=== PATIENT | male | born 1975 | race Caucasian/White ===

== ENCOUNTER 2020-06-10 08:13 | Outpatient (CLI) | payer BC, OTHER, SELFPAY ==
[2020-06-10 08:39] LABS: Basophils Absolute Auto 0.1 K/mm3 (0.0-0.1); Basophils Percent Auto 0.8 % (0.2-1.2); Eosinophils Absolute Auto 0.2 K/mm3 (0-0.3); Hematocrit 44.5 % (42.0-52.0); Hemoglobin 15.4 g/dL (14.0-18.0); Immature Granulocyte Absolute 0.04 K/mm3 (0.00-0.031); Immature Granulocyte Percent A 0.5 % (0-0.5); Lymphocytes Absolute Auto 3.09 K/mm3 (0.9-3.2); Lymphocytes Percent Auto 39.3 % (18.3-44.2); Mean Corpuscular HGB Conc 34.6 g/dl (32-36); Mean Corpuscular Hemoglobin 29.5 pg (26-34); Mean Corpuscular Volume 85.2 fl (80-100); Mean Platelet Volume 8.7 fl (7.4-10.4); Monocytes Absolute Auto 0.4 K/mm3 (0.1-0.6); Monocytes Percent Auto 5.3 % (2.6-8.5); Neutrophils Absolute Auto 4.1 K/mm3 (1.3-6.7); Neutrophils Percent Auto 52.1 % (45.5-73.1); Platelet Count Result 341 k/mm3 (150-375); Red Blood Count 5.22 M/mm3 (4.6-6.20); White Blood Count 7.9 K/mm3 (4.5-10.0)
[2020-06-10 09:09] LABS: Alanine Aminotransferase 41 U/L (4-50); Albumin Level 4.8 g/dL (3.5-5.1); Alkaline Phosphatase 72 U/L (38-126); Anion Gap 7 mmol/L (8-16); Aspartate Amino Transferase 31 U/L (17-59); Bilirubin,Total 0.4 mg/dL (0.2-1.3); Blood Urea Nitrogen 9 mg/dL (9-20); Calcium 9.6 mg/dL (8.4-10.2); Carbon Dioxide 29 mmol/L (22-30); Chloride 104 mmol/L (98-107); Cholesterol 242 mg/dL (0-200); Estimated Glomerular Filt Rate > 60; Glucose 101 mg/dL (75-110); HDL Direct 31 mg/dL; Potassium 4.5 mmol/L (3.4-5.0); Sodium 140 mmol/L (137-145); Triglycerides 296 mg/dL (<150)
[2020-06-10 09:21] LABS: LDL Cholesterol Direct 145 mg/dL
== END 2020-06-10 08:14 | disposition home or self-care (01) ==
LOC: ANHLAB 08:16
PROVIDERS: PCP Internal Medicine; Visit Provider Nurse Practitioner
DX: Z13.29 Encounter for screening for other suspected endocrine disorder (principal); Z13.220 Encounter for screening for lipoid disorders; Z84.2 Family history of other diseases of the genitourinary system; M25.50 Pain in unspecified joint
CPT/HCPCS: 36415; 80053; 80061; 84153; 84443; 85025

== ENCOUNTER → 2020-06-29 01:39 | Outpatient (CLI) | payer BC, OTHER, SELFPAY ==
[2020-06-29 18:55] LABS: SARS-CoV-2 RNA PCR Negative
== END ==
PROVIDERS: PCP Internal Medicine; Visit Provider Internal Medicine Gastroenterology
DX: Z01.812 Encounter for preprocedural laboratory examination (principal); Z20.822 Contact with and (suspected) exposure to COVID-19
CPT/HCPCS: C9803; U0003; U0005

== ENCOUNTER 2020-07-02 05:22 | Day surgery (SDC) | payer BC, OTHER, SELFPAY ==
[2020-06-22 14:55] VITALS: BMI 33.5
[2020-07-02] MEDS: LACTATED RINGERS 1,000 ML 150 ML IV CONT (06:32)
[2020-07-02 06:34] VITALS: BP 110/70; PULSE 72; RESP 20; TEMP 36.7; O2SAT 98; BMI 34.0
--- NOTE | 2020-07-02 07:14 | WPDANESEPPF ---
Anes - Initial Pre Proc Eval Procedure: Operation Date: 07/02/20 07:30 Proposed Procedures p Colonoscopy - Blake Saucedo MD Date/Time: 07/02/20 07:14 Surgeon: Blake Saucedo MD Pre Op Diagnosis: melena Patient Data Age: 44 Gender: M Height: 5 ft 8 in Weight: 101.4 kg Last Vital Signs Temp 98.1 F 07/02/20 06:34 Pulse 72 07/02/20 06:34 Resp 20 07/02/20 06:34 BP 110/70 07/02/20 06:34 Pulse Ox 98 07/02/20 06:34 Allergies Allergy/AdvReac Type Severity Reaction Status Date / Time No Known Allergies Allergy Verified 07/02/20 06:33 Home Medications Medication Instructions Recorded Confirmed Type buspirone 15 mg tablet 15 mg PO TID 06/07/20 06/22/20 History clonazepam 0.5 mg tablet 0.5 mg PO TID tablet 06/07/20 06/22/20 History clonidine HCl 0.1 mg tablet 0.1 mg PO BID tablet 06/07/20 06/22/20 History lisdexamfetamine 30 mg capsule 30 mg PO DAILY 06/07/20 06/22/20 History Patient hx anesthesia problems: none Family hx anesthesia problems: none PMFSH Past Medical History Medical History (Updated 06/07/20 @ 12:56 by Lila Flynn NP) Allergies Anxiety Arthritis Bulging disc Degenerative disc disease Family history of prostate problems Genital warts due to HPV (human papillomavirus) Headache HPV in male IBS (irritable bowel syndrome) Migraine METZ (nonalcoholic steatohepatitis) Ulcer Surgical History Surgical History (Updated 06/07/20 @ 10:18 by Kaylie Taveras CMA) H/O foot surgery History of nasal surgery Family History Family History (Updated 06/07/20 @ 09:52 by Kaylie Taveras CMA) Father Alcoholism Hypertension Depression Heart disease Malignant neoplasm of prostate Mother HPV (human papilloma virus) infection Depression Thyroid disease Sibling Heart disease Daughter Depression Grandparent Alcoholism Cancer Depression Malignant neoplasm of prostate Social History Social History (Updated 06/07/20 @ 09:46 by Kaylie Taveras CMA) Smoking packs per day: 2 Smoking cigarettes per day: 40.0 Years smoked: 13 Smoking pack-years: 26.00 Smoking status: Former smoker Tobacco type: cigarettes Alcohol intake: current Alcohol use details: OCCASIONALLY Living arrangements: with family Spiritual care concerns: No Anes - Eval Final PreProcedure Day of Procedure 07/02/20 07:14 Patient weight: obese Heart: regular rate and rhythm Lungs: clear to auscultation Airway: Mallampati scale class II Neurological: alert and oriented Last oral intake: >/= 8 hours ASA classification: II Emergent: no Anesthetic plan: proceed Anesthesia type and monitoring: general GIVS and standard monitoring Informed Consent: The patient's anesthetic plan and its attendant risks and benefits were discussed with the patient/family/POA. Questions were solicited and answers provided to the satisfaction of the patient/family/POA.
--- NOTE | 2020-07-02 07:25 | WPDGICN ---
Assessment and Plan Assessment and plan (1) Hematochezia: Code(s): K92.1 - Melena Status: Acute Assessment and Plan: Patient had 2 episodes of bright red blood per rectum. Melena and dark stools is denied. Plan is for colonoscopy to evaluate for source rectal bleeding. Further recommendations will be given after endoscopy (2) ADD (attention deficit disorder): Qualifiers: Hyperactivity presence: present Attention deficit-hyperactivity disorder type: predominantly hyperactive Qualified Code(s): F90.1 - Attention-deficit hyperactivity disorder, predominantly hyperactive type Code(s): F98.8 - Other specified behavioral and emotional disorders with onset usually occurring in childhood and adolescence Status: Acute GI Consult Note Consult date/time: 07/02/20 07:25 HPI: Chivo Cosby II is a 44 year old male seen in evaluation at request of Dr Collins. Patient presents for evaluation of bright red blood per rectum. patient states that he has underlying history of ADD. Recently found to have jejunal arts attributed HPV. He gives a history of 2 episodes of bright red blood per rectum with wiping. He denies any abdominal pain. He has had no pain is bowel habits remain normal. Family history is significant his grandfather had colon cancer. First-degree relatives otherwise have had no history given. Recent CBC was found to be within normal limits. Colonoscopy is reoccur commended to evaluate source of rectal bleeding further recommendations weight be given after endoscopy. Review of Systems Review of Systems: All systems reviewed & are unremarkable except as noted in HPI and below PMFSH Past Medical History Medical History (Updated 06/07/20 @ 12:56 by Llia Flynn NP) Allergies Anxiety Arthritis Bulging disc Degenerative disc disease Family history of prostate problems Genital warts due to HPV (human papillomavirus) Headache HPV in male IBS (irritable bowel syndrome) Migraine METZ (nonalcoholic steatohepatitis) Ulcer Surgical History Surgical History (Updated 06/07/20 @ 10:18 by Kaylie Taveras CMA) H/O foot surgery History of nasal surgery Family History Family History (Updated 06/07/20 @ 09:52 by Kaylie Taveras CMA) Father Alcoholism Hypertension Depression Heart disease Malignant neoplasm of prostate Mother HPV (human papilloma virus) infection Depression Thyroid disease Sibling Heart disease Daughter Depression Grandparent Alcoholism Cancer Depression Malignant neoplasm of prostate Social History Social History (Updated 06/07/20 @ 09:46 by Kaylie Taveras CMA) Smoking packs per day: 2 Smoking cigarettes per day: 40.0 Years smoked: 13 Smoking pack-years: 26.00 Smoking status: Former smoker Tobacco type: cigarettes Alcohol intake: current Alcohol use details: OCCASIONALLY Living arrangements: with family Spiritual care concerns: No Meds Home Medications and Allergies Home Medications Medication Instructions Recorded Confirmed Type buspirone 15 mg tablet 15 mg PO TID 06/07/20 06/22/20 History clonazepam 0.5 mg tablet 0.5 mg PO TID tablet 06/07/20 06/22/20 History clonidine HCl 0.1 mg tablet 0.1 mg PO BID tablet 06/07/20 06/22/20 History lisdexamfetamine 30 mg capsule 30 mg PO DAILY 06/07/20 06/22/20 History Allergies Allergy/AdvReac Type Severity Reaction Status Date / Time No Known Allergies Allergy Verified 07/02/20 06:33 Vital Signs Vital Signs - 24 hr 07/02/20 06:34 Temperature 98.1 F Pulse Rate 72 Respiratory Rate 20 Blood Pressure 110/70 Pulse Oximetry 98 Exam Narrative: Exam Narrative: Physical exam reveals patient be alert. Vital signs stable. HEENT exam unremarkable. Lungs are clear to auscultation and percussion. Heart is without murmur or extra sounds. Abdominal exam bowel sounds are present soft nontender with no organomegaly. Digital external
[2020-07-02 07:51] VITALS: BP 117/70; PULSE 70; RESP 19; O2SAT 94
[2020-07-02 08:01] VITALS: BP 119/72; PULSE 66; RESP 21; O2SAT 95
[2020-07-02 08:11] VITALS: BP 116/76; PULSE 61; RESP 22; O2SAT 100
== END 2020-07-02 08:18 | disposition home or self-care (01) ==
PROVIDERS: PCP Internal Medicine; Visit Provider Internal Medicine Gastroenterology
PROC: 0DJD8ZZ Inspection of Lower Intestinal Tract, Via Natural or Artificial Opening Endoscopic (ICD-10-PCS; CPT 45378; principal; 2020-07-02 07:30)
DX: K92.1 Melena (principal); K64.8 Other hemorrhoids; F90.1 Attention-deficit hyperactivity disorder, predominantly hyperactive type; K58.9 Irritable bowel syndrome, unspecified; F41.9 Anxiety disorder, unspecified; K75.81 Nonalcoholic steatohepatitis (NASH); Z87.891 Personal history of nicotine dependence; E66.9 Obesity, unspecified; Z68.34 Body mass index [BMI] 34.0-34.9, adult
CPT/HCPCS: 45378; C9803; J2704; J7120; U0003; U0005

== ENCOUNTER 2021-02-03 10:28 | Outpatient (CLI) | payer BC, MEDICAID, SELFPAY ==
--- NOTE | ~2021-02-03 | XR_ITS ---
EXAMINATION: XR shoulder RT min 2V DATE: 02/03/2021 10:48 INDICATION: Right shoulder pain. Fall one week ago. TECHNIQUE: 4 views of right shoulder were obtained. COMPARISON: None. FINDINGS: Bone alignment is normal. No fracture. Glenohumeral joint is normal. There is mild acromioc lavicular joint osteoarthritis. IMPRESSION: 1. Mild acromioclavicular joint osteoarthritis. Reviewed, dictated and finalized at location A. [employer]
[2021-02-03 11:04] LABS: Basophils Percent Auto 0.7 % (0.2-1.2); Eosinophils Absolute Auto 0.1 K/mm3 (0-0.3); Eosinophils Percent Auto 1.3 % (0-4.4); Hematocrit 45.4 % (42.0-52.0); Hemoglobin 15.5 g/dL (14.0-18.0); Immature Granulocyte Absolute 0.01 K/mm3 (0.00-0.031); Immature Granulocyte Percent A 0.2 % (0-0.5); Lymphocytes Absolute Auto 2.42 K/mm3 (0.9-3.2); Lymphocytes Percent Auto 39.9 % (18.3-44.2); Mean Corpuscular HGB Conc 34.1 g/dl (32-36); Mean Corpuscular Hemoglobin 30.3 pg (26-34); Mean Corpuscular Volume 88.7 fl (80-100); Mean Platelet Volume 9.6 fl (7.4-10.4); Monocytes Absolute Auto 0.4 K/mm3 (0.1-0.6); Monocytes Percent Auto 5.8 % (2.6-8.5); Neutrophils Absolute Auto 3.2 K/mm3 (1.3-6.7); Neutrophils Percent Auto 52.1 % (45.5-73.1); Platelet Count Result 289 k/mm3 (150-375); Red Blood Count 5.12 M/mm3 (4.6-6.20); Red Cell Distribution Width 12.4 % (11.5-14.5); White Blood Count 6.1 K/mm3 (4.5-10.0)
[2021-02-03 11:15] LABS: Rheumatoid Factor < 8.6 IU/ML (<12)
[2021-02-03 11:17] LABS: Alanine Aminotransferase 32 U/L (4-50); Albumin Level 4.7 g/dL (3.5-5.1); Alkaline Phosphatase 65 U/L (38-126); Anion Gap 8 mmol/L (8-16); Aspartate Amino Transferase 26 U/L (17-59); Bilirubin,Total 0.4 mg/dL (0.2-1.3); Blood Urea Nitrogen 16 mg/dL (9-20); CRP < 0.5 mg/dL (<1.0); Calcium 9.4 mg/dL (8.4-10.2); Carbon Dioxide 24 mmol/L (22-30); Chloride 107 mmol/L (98-107); Estimated Glomerular Filt Rate > 60; Glucose 122 mg/dL (65-110); Potassium 4.1 mmol/L (3.4-5.0); Sodium 139 mmol/L (137-145)
[2021-02-03 11:45] LABS: Erythrocyte Sedimentation Rate 3 mm/hr (0-20)
[2021-02-08 11:34] LABS: Anti Cyclic Citrullinated Pept <16 Units (<20)
== END 2021-02-03 10:29 | disposition home or self-care (01) ==
LOC: ANHLAB 10:32
PROVIDERS: PCP Internal Medicine; Visit Provider Family Medicine
DX: M25.511 Pain in right shoulder (principal); M19.011 Primary osteoarthritis, right shoulder
CPT/HCPCS: 36415; 73030; 80053; 84550; 85025; 85652; 86140; 86200; 86430

== ENCOUNTER 2021-04-07 08:11 | Outpatient (CLI) | payer BC, MEDICAID, SELFPAY ==
--- NOTE | ~2021-04-07 | US_ITS ---
EXAMINATION: US art doppler w press LE BI DATE: 04/07/2021 08:53 INDICATION: Other specified symptoms and signs involving the circulatory system. Lower limb pain. Hyp ercholesterolemia. TECHNIQUE: Segmental pressures and plethysmographic and Doppler waveforms of the brachial and lower e xtremity arteries were obtained. COMPARISON: None. FINDINGS: Right and left brachial artery pressures of 118 mm Hg and 125 mm Hg, respectively, are concordant (no rmal difference <= 30 mmHg). The right and left high-thigh pressure indices are 1.43 and 1.38, respec tively (normal > 1.2). The right ankle-brachial index (SKY) is 1.02 (normal >= 0.9-1). The right great toe-brachial index (T BI) is 0.77 (normal >= 0.6-0.8). The right lower extremity segmental pressure gradients are increased between the right above and wlfct-dqi-vzci popliteal arteries as well as between the arteries at the vzhxe-cyb-owjy popliteal artery and the right dorsalis pedis artery (normal gradients <= 20-30 mmHg between adjacent levels on the same leg or the same levels on the two legs). Arterial waveforms are b iphasic at the right dorsalis pedis artery and triphasic at the remaining arteries in the right lower limb with brisk systolic upstrokes throughout. The left SKY is 1.05. The left TBI is 0.93. The left lower extremity segmental pressure gradients are normal. Arterial waveforms are biphasic at the left dorsalis pedis artery and triphasic at the remai mahesh arteries in the left lower limb with brisk systolic upstrokes throughout. IMPRESSION: 1. Normal SKY's and TBI's bilaterally. No significant occlusive disease. Reviewed, dictated and finalized at location A. [employer]
== END 2021-04-07 08:12 | disposition home or self-care (01) ==
LOC: ANHIMG 08:14
PROVIDERS: PCP Internal Medicine; Visit Provider Family Medicine
DX: R09.89 Other specified symptoms and signs involving the circulatory and respiratory systems (principal); R25.2 Cramp and spasm
CPT/HCPCS: 93923

== ENCOUNTER → 2021-04-12 08:40 | Outpatient (CLI) | payer BC, MEDICAID, SELFPAY ==
--- NOTE | ~2021-04-12 | MR_ITS ---
EXAMINATION: MR shoulder RT wo con DATE: 04/12/2021 09:19 INDICATION: Right shoulder pain TECHNIQUE: Magnetic resonance imaging (MRI) of the right shoulder was performed without intravenous c ontrast. Sequences included axial PD-weighted FS FSE, coronal oblique PD-weighted FS FSE, coronal obl ique T2-weighted FS FSE, sagittal PD-weighted FS FSE, and sagittal T1-weighted SE. COMPARISON: None. FINDINGS: Coracoacromial arch: The acromion undersurface is flat in morphology (type I). The coracoacromial ligament is normal. Mild acromioclavicular osteoarthritis. Rotator cuff: Mild infraspinatus tendinopathy with tiny tear measuring 3 mm AP and involving a minimal portion of t he thickness of the tendon at the middle facet footplate. The supraspinatus, infraspinatus and subsca pularis tendons are normal. Normal rotator cuff muscle bulk and signal. Biceps tendon, glenoid labrum and glenohumeral cartilage: Long head of the biceps tendon is normal. Glenoid labrum is normal. Glenohumeral cartilage is normal. Fluid: Physiologic amount of fluid in the glenohumeral joint and biceps tendon sheath. No loose osteochondr al bodies. Mild increased fluid signal in the subacromial/subdeltoid bursa consistent with minimal bu rsitis. Bones: Normal marrow signal with no edema, fracture or abnormal marrow replacing process. Mild cystic change at the greater tuberosity in the immediate vicinity of the tiny labral tear. IMPRESSION: 1. Mild infraspinatus tendinopathy with tiny tear at its insertion. 2. Minimal subacromial/subdeltoid bursitis. 3. Mild acromioclavicular osteoarthritis. Reviewed, dictated and finalized at location A. 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
== END ==
PROVIDERS: PCP Family Medicine; Visit Provider Family Medicine
DX: M75.51 Bursitis of right shoulder (principal); M19.011 Primary osteoarthritis, right shoulder
CPT/HCPCS: 73221

== ENCOUNTER 2021-04-26 07:29 | Outpatient (CLI) | payer BC, MEDICAID, SELFPAY ==
--- NOTE | 2021-05-03 10:53 | WPDHOMESLEEP ---
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 The patient has difficulty falling asleep and staying asleep. The patient rarely awakens from sleep short of breath. He denies awakening at night with heartburn, belching or cough. He occasionally snores but it is rarely loud enough that others complain. He constantly has trouble sleeping when he has a cold. He denies waking up gasping for air throughout the night. He denies having breathing problems at night observed by others. He denies sweating excessively at night. He denies having heart palpitations or irregular heartbeats during the night. He rarely falls asleep during the day. The patient occasionally has trouble at work due to sleepiness. The patient denies sleep paralysis and cataplexy. He frequently experiences vivid dreamlike scenes upon awakening or falling asleep. He occasionally has nightmares. He frequently remembers his dreams. He occasionally has thoughts racing through his mind. He rarely feels sad or depressed. He occasionally has anxiety. He frequently notices parts of his body jerk. He denies kicking during the night. He rarely experiences crawling and aching feelings in his legs. He rarely experiences leg pain during the night. He occasionally grinds his teeth during sleep and occasionally awakens with morning jaw pain. He is frequently bothered by pain during the day and constantly awakened by pain during the night. He occasionally wakes up feeling stiff morning. He frequently wakes up with sore achy muscles. He frequently wakes up with pain in the neck, spine and other joints. He goes to bed between 8 and 10:00 p.m. on both weekdays and weekends. He can fall asleep within 45 minutes when he takes his medication. He wakes up 4-5 times throughout the night. When he awakens, he will use the restroom but then have difficulty falling back asleep. He wakes up at 2:00 a.m. on both weekdays and weekends. He typically gets 4 hours of sleep per. He does not stay in the bed after waking up in the morning. He currently lives with his . He denies consuming any caffeinated beverages within 2 hours of bedtime. He does not engage in physical exercise before bedtime. He denies reading and watching television before falling asleep. He denies taking naps in the afternoon or the evening. He does not consume any caffeinated beverages throughout the day. He quit smoking cigarettes 15 years ago. He denies alcohol recreational drug use. [facility] Past Medical History Medical History Allergies Anxiety Arthritis Bulging disc Degenerative disc disease Family history of prostate problems Genital warts due to HPV (human papillomavirus) Headache HPV in male IBS (irritable bowel syndrome) Migraine METZ (nonalcoholic steatohepatitis) Ulcer Surgical History Surgical History H/O foot surgery History of nasal surgery Family History Family History Father Alcoholism Hypertension Depression Heart disease Malignant neoplasm of prostate Mother HPV (human papilloma virus) infection Depression Thyroid disease Sibling Heart disease Daughter Depression Grandparent Alcoholism Cancer Depression Malignant neoplasm of prostate Social History Social History (Reviewed 05/03/21
[2021-05-03 15:23] VITALS: BMI 35.1
--- NOTE | 2021-12-08 15:58 | SLEEP ---
pt received machine in august will re evaluate in
--- NOTE | 2023-02-22 12:39 | SLEEP ---
pt not using pap
== END 2021-05-02 13:17 | disposition home or self-care (01) ==
LOC: ANHCSM 07:31
PROVIDERS: PCP Family Medicine; Visit Provider Family Medicine
DX: G47.10 Hypersomnia, unspecified (principal); G47.33 Obstructive sleep apnea (adult) (pediatric)
CPT/HCPCS: 95806

== ENCOUNTER 2021-04-27 17:00 | Emergency (ER) | payer BC, MEDICAID, SELFPAY ==
[2021-04-27] VITALS (8 sets, daily range): BP systolic 122–151; BP diastolic 84–111; PULSE 85–123; RESP 16–20; TEMP 36.9–37.2; O2SAT 98–100
--- NOTE | ~2021-04-27 | XR_ITS ---
EXAMINATION: XR chest 2V DATE: 04/27/2021 18:06 INDICATION: Shortness of breath. TECHNIQUE: PA and lateral views of the chest were obtained. COMPARISON: Chest radiograph dated 08/24/2013 FINDINGS: The lungs remain clear with no focal airspace opacities, pulmonary edema, pleural effusion or pneumot horax. The cardiomediastinal silhouette is normal. 20 degrees midthoracic dextroscoliosis with mild s pondylosis. IMPRESSION: 1. No acute cardiopulmonary disease. Reviewed, dictated and finalized at location A. 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
--- NOTE | 2021-04-27 17:48 | ECG_ITS ---
Measurements Intervals [place] Rate: 118 P: 62 [place]: 166 QRS: 73 QRSD: 93 T: -39 QT: 400 QTc: 561 Interpretive Statements SINUS TACHYCARDIA BASELINE ARTIFACT BORDERLINE ECG NO PREVIOUS ECG AVAILABLE FOR COMPARISON Electronically Signed On 04-28-2021 13:45:32 LABOR ECON[employer]ICS TEACHER by Pedro Rangel M.D.
--- NOTE | 2021-04-27 18:01 | ED.SOB ---
HPI - SOB/Dyspnea General Chief Complaint: Shortness of Breath/Dyspnea Stated Complaint: dyspnea, burning face, FLORES Time Seen by Provider: 04/27/21 17:48 Source: patient Mode of arrival: ambulatory Limitations: no limitations History of Present Illness HPI Narrative: Patient is a 45-year-old male complaining of shortness of breath accompanied by chest discomfort, midsternal, nonradiating, 10, on and off for the past week. Patient states that he was sent here by his PCP due to the elevated blood pressure and heart rate, denies any history of hypertension, on clonidine for his anxiety. Patient patient denies any abdominal pain, nausea, vomiting, diaphoresis, fever or chills. Patient also requesting to check his gout, uric acid level. Related Data Home Medications Medication Instructions Recorded Confirmed buspirone 15 mg tablet 15 mg PO TID 06/07/20 04/27/21 clonidine HCl 0.1 mg tablet 0.1 mg PO BID tablet 06/07/20 04/27/21 lisdexamfetamine 30 mg capsule 30 mg PO DAILY 06/07/20 04/27/21 clonazepam 0.5 mg tablet 0.5 mg PO BID tablet 04/27/21 04/27/21 Allergies Allergy/AdvReac Type Severity Reaction Status Date / Time No Known Allergies Allergy Verified 04/27/21 18:33 Review of Systems Review of Systems: All systems reviewed & are unremarkable except as noted in HPI and below Constitutional: Constitutional: Denies body ache(s), Denies chills, Denies excessive sweating, Denies fatigue, Denies fever(s), Denies headache(s), Denies lethargy, Denies malaise, Denies weakness and Denies weight loss Eyes: Eyes: Denies blurry vision, Denies change in vision and Denies loss of vision ENT: Denies dizziness, Denies ear discharge, Denies headache(s), Denies lip swelling, Denies epistaxis, Denies nasal congestion, Denies neck pain, Denies throat swelling and Denies tongue swelling Cardiovascular: Cardiovascular: Denies diaphoresis, Denies edema, Denies irregular heart rhythm, Denies lightheadedness and Denies palpitations Respiratory: Respiratory: Denies chest congestion, Denies cough and Denies hemoptysis Gastrointestinal: Gastrointestinal: Denies abdominal pain, Denies melena, Denies hematochezia, Denies diarrhea, Denies nausea, Denies vomiting and Denies hematemesis Musculoskeletal: Musculoskeletal: Denies abnormal gait, Denies deformity, Denies joint swelling, Denies limited range of motion, Denies neck pain and Denies numbness Neurologic: Denies Abnormal speech present, Denies abnormal gait, Denies confusion, Denies dizziness, Denies headache(s), Denies focal weakness, Denies loss of vision, Denies numbness, Denies Other visual disturbances, Denies Sensory deficit (Neuro) and Denies weakness Psychiatric: Psychiatric: Denies confusion, Denies depression, Denies auditory hallucinations, Denies homicidal ideation and Denies suicidal ideation Endocrine: Endocrine: Denies cold intolerance, Denies excessive sweating, Denies fatigue, Denies heat intolerance and Denies palpitations Hematologic/Lymphatic: Hematologic/Lymphatic: Denies easy bleeding and Denies easy bruising Allergic/Immunologic: Allergic/Immunologic: Denies lip swelling, Denies throat swelling and Denies tongue swelling PMFSH Past Medical History Medical History Allergies Anxiety Arthritis Bulging disc Degenerative disc disease Family history of prostate problems Genital warts due to HPV (human papillomavirus) Headache HPV in male IBS (irritable bowel syndrome) Migraine METZ (nonalcoholic steatohepatitis) Ulcer Surgical History Surgical History H/O foot surgery History of nasal surgery Family History Family History Father Alcoholism Hypertension Depression Heart disease Malignant neoplasm of prostate Mother HPV (human papilloma virus) infection Depression Thyroid disease Sibling
[2021-04-27 18:24] LABS: Basophils Percent Auto 0.3 % (0.2-1.2); Eosinophils Absolute Auto 0.1 K/mm3 (0-0.3); Eosinophils Percent Auto 1.1 % (0-4.4); Hematocrit 46.2 % (42.0-52.0); Immature Granulocyte Absolute 0.02 K/mm3 (0.00-0.031); Immature Granulocyte Percent A 0.2 % (0-0.5); Lymphocytes Absolute Auto 2.74 K/mm3 (0.9-3.2); Lymphocytes Percent Auto 31.3 % (18.3-44.2); Mean Corpuscular HGB Conc 34.6 g/dl (32-36); Mean Corpuscular Hemoglobin 30.2 pg (26-34); Mean Corpuscular Volume 87.2 fl (80-100); Mean Platelet Volume 9.4 fl (7.4-10.4); Monocytes Absolute Auto 0.6 K/mm3 (0.1-0.6); Monocytes Percent Auto 7.1 % (2.6-8.5); Neutrophils Absolute Auto 5.2 K/mm3 (1.3-6.7); Platelet Count Result 289 k/mm3 (150-375); Red Cell Distribution Width 11.9 % (11.5-14.5); White Blood Count 8.8 K/mm3 (4.5-10.0)
[2021-04-27 18:41] LABS: Alanine Aminotransferase 45 U/L (4-50); Albumin Level 4.5 g/dL (3.5-5.1); Alkaline Phosphatase 62 U/L (38-126); Anion Gap 5 mmol/L (8-16); Aspartate Amino Transferase 38 U/L (17-59); Bilirubin,Total 0.6 mg/dL (0.2-1.3); Blood Urea Nitrogen 10 mg/dL (9-20); Calcium 9.2 mg/dL (8.4-10.2); Carbon Dioxide 30 mmol/L (22-30); Chloride 103 mmol/L (98-107); Estimated CRCL calculation 111 ml/min; Estimated Glomerular Filt Rate > 60; Glucose 88 mg/dL (65-110); Potassium 3.6 mmol/L (3.4-5.0); Sodium 138 mmol/L (137-145)
[2021-04-27 18:52] LABS: Troponin I < 0.012 ng/mL (0.000-0.034)
--- NOTE | 2021-04-27 19:10 | PC.NURSE ---
Assuming care of pt.
[2021-04-27 19:11] LABS: D Dimer 0.27 ug/mL (<0.48)
[2021-04-27] MEDS: ASPIRIN 81 MG CHEWABLE TABLET 324 MG PO (19:22)
[2021-04-27] MEDS: METOPROLOL TARTRATE INJ 5 MG/5 ML VIAL IV PUSH (19:24)
[2021-04-27 19:25] LABS: NT Pro B Type Natriuretic Pept 64 pg/mL (5-100)
[2021-04-27 20:21] LABS: Uric Acid 7.2 mg/dL (3.5-8.5)
[2021-04-27 20:33] LABS: Troponin I < 0.012 ng/mL (0.000-0.034)
== END 2021-04-27 21:10 | disposition home or self-care (01) ==
PROVIDERS: Emergency Provider Emergency Medicine; PCP Internal Medicine
DX: R07.89 Other chest pain (principal); R03.0 Elevated blood-pressure reading, without diagnosis of hypertension; R00.0 Tachycardia, unspecified; F41.9 Anxiety disorder, unspecified; M19.90 Unspecified osteoarthritis, unspecified site
CPT/HCPCS: 36415; 71046; 80053; 83880; 84484; 84550; 85025; 85380; 93005; 96374; 99284; A9270

== ENCOUNTER 2021-05-04 12:09 | Outpatient (CLI) | payer BC, MEDICAID, SELFPAY ==
[2021-05-04 12:58] LABS: CRP < 0.5 mg/dL (<1.0)
[2021-05-04 13:31] LABS: Erythrocyte Sedimentation Rate 7 mm/hr (0-20)
== END 2021-05-04 12:10 | disposition home or self-care (01) ==
PROVIDERS: PCP Family Medicine; Visit Provider Family Medicine
DX: M77.9 Enthesopathy, unspecified (principal); M25.50 Pain in unspecified joint
CPT/HCPCS: 36415; 85652; 86140

== ENCOUNTER 2021-05-06 08:34 | Outpatient (CLI) | payer BC, MEDICAID, SELFPAY | END 2021-05-06 08:35 | disposition home or self-care (01) | LOC: ANHLAB 08:38 | PROVIDERS: PCP Family Medicine; Visit Provider Family Medicine | DX: M10.9 Gout, unspecified (principal) | CPT/HCPCS: 83835 ==

== ENCOUNTER 2021-05-18 09:10 | Outpatient (CLI) | payer BC, MEDICAID, SELFPAY ==
[2021-05-18 10:58] LABS: Free T4 Free Thyroxine 0.87 ng/mL (0.78-2.19)
[2021-05-18 13:22] LABS: Cortisol Random 7.97 ug/dL
[2021-05-22 11:09] LABS: Metanephrine, Free <25 pg/mL (<=57); Normetanephrine, Free 79 pg/mL (<=148); Total, Free (MN + NMN) 79 pg/mL (<=205)
[2021-05-22 17:09] LABS: Testosterone Free 51.4 pg/mL (35.0-155.0); Testosterone Total 459 ng/dL (250-1100)
[2021-05-23 15:51] LABS: Adrenocorticotropic Hormone 37 pg/mL (6-50)
== END 2021-05-18 09:11 | disposition home or self-care (01) ==
LOC: ANHLAB 09:12
PROVIDERS: PCP Family Medicine; Visit Provider Family Medicine
DX: R00.0 Tachycardia, unspecified (principal); R03.0 Elevated blood-pressure reading, without diagnosis of hypertension; R23.2 Flushing
CPT/HCPCS: 36415; 82024; 82088; 82533; 83835; 84402; 84403; 84439; 84443

== ENCOUNTER 2021-05-23 13:27 | Outpatient (CLI) | payer BC, MEDICAID, SELFPAY ==
--- NOTE | ~2021-05-23 | CT_ITS ---
EXAMINATION: CT abdomen pelvis w con EXAM DATE: 05/23/2021 14:28 INDICATION: Flushing, sinus tachycardia. Concerns for pheochromocytoma, adrenal mass. TECHNIQUE: Spiral CT of the abdomen and pelvis was performed following intravenous injection of 100 m L Omnipaque 350. Axial, coronal and sagittal images of the abdomen and pelvis were reviewed. The do se-length product (DLP) for this examination was 1144.52 mGy-cm. The exposure was tailored according to patient size (auto mA exposure control), and iterative reconstruction (ASIR) was used as addition al dose reduction technique. Comparison is made to prior examination from 02/16/2011. FINDINGS: The liver, spleen, adrenal glands and pancreas are unremarkable. Gallbladder is unremarkab le. No biliary obstruction. Portal and splenic veins are patent. Kidneys enhance symmetrically. T here is no hydronephrosis. The prostate is unremarkable. The bladder is unremarkable. There is no retroperitoneal or pelvic lymphadenopathy. There are no findings to suggest appendicitis. There is small sliding gastroesophageal hiatal hernia . There is expected amount of colonic stool. No free intraperitoneal gas. The heart is normal in size. There are no pericardial or pleural effusions. The lung bases are unremarkable. There are n o osteoblastic or osteolytic lesions identified. IMPRESSION: No adrenal or paraspinal mass. Reviewed, dictated and finalized at location A.
== END 2021-05-23 13:28 | disposition home or self-care (01) ==
PROVIDERS: PCP Family Medicine; Visit Provider Family Medicine
DX: R00.0 Tachycardia, unspecified (principal); R23.2 Flushing
CPT/HCPCS: 74177; Q9967

== ENCOUNTER → 2021-06-09 07:43 | Outpatient (CLI) | payer BC, MEDICAID, SELFPAY ==
--- NOTE | ~2021-06-09 | MR_ITS ---
EXAMINATION: MR foot LT wo con DATE: 06/09/2021 08:32 INDICATION: Stress fracture presenting with left heel pain TECHNIQUE: Magnetic resonance imaging (MRI) of the left foot was performed without intravenous contra st. Sequences included sagittal T1-weighted FSE, sagittal fluid sensitive FSE STIR, coronal PD-weight ed FS FSE, coronal T1-weighted FSE, axial PD-weighted FS FSE, and axial PD-weighted FSE. COMPARISON: None FINDINGS: Medial ankle ligaments: Deep and superficial deltoid ligaments as well as the spring ligament are normal. Lateral ankle ligaments: The anterior and posterior inferior tibiofibular ligaments are normal. The anterior talofibular, calc aneofibular and posterior talofibular ligaments are normal. Mid and forefoot ligaments: The Lisfranc ligament complex as well as the collateral ligament complex at the metatarsophalangeal a nd interphalangeal joints are normal. Tendons: Mild edema associated with an enthesophyte at the calcaneal insertion of the otherwise normal Sadia s tendon. The peroneus brevis tendon is normal. Mild tendinopathy without tear of the peroneus longus tendon. The tibialis anterior and extensor hallucis longus and extensor digitorum longus tendons are normal. The tibialis posterior, flexor digitorum longus and flexor hallucis longus tendons are levi l. Plantar fascia: Plantar aponeurosis is normal. Bones/other: Bone alignment is normal. Tiny low signal intensity bone island at the cuboid. Normal marrow signal s eparate previous noted edema at the Achilles calcaneal enthesophyte. No fracture, stress reaction or pathologic marrow replacing process. Joint spaces are normal. No cortical erosions or periosteal reac tion. Fluid: Physiologic amount of fluid in the joint spaces. No tenosynovitis, bursitis or other abnormal fluid c ollections. IMPRESSION: 1. Likely acute on chronic Achilles enthesitis with reactive edema associated with a moderate-sized A chilles calcaneal enthesophyte. No fracture. 2. Mild tendinopathy without discrete tear of the peroneus longus tendon. Reviewed, dictated and finalized at location A. IMPRESSION: 1. Likely acute on chronic Achilles enthesitis with reactive edema associated w ith a moderate-sized Achilles calcaneal enthesophyte. No fracture. 2. Mild tendinopathy without discrete tear of the peroneus longus tendon.
== END ==
PROVIDERS: PCP Orthopaedic Surgery; Visit Provider Orthopaedic Surgery
DX: M84.375A Stress fracture, left foot, initial encounter for fracture (principal)
CPT/HCPCS: 73718

== ENCOUNTER 2021-07-01 10:50 | Outpatient (CLI) | payer BC, MEDICAID, SELFPAY | END 2021-07-01 10:51 | disposition home or self-care (01) | LOC: ANHLAB 10:52 | PROVIDERS: PCP Family Medicine; Visit Provider Internal Medicine Endocrinology, Diabetes & Metabolism | DX: R23.2 Flushing (principal) | CPT/HCPCS: 83497 ==

== ENCOUNTER 2021-07-04 09:12 | Outpatient (CLI) | payer BC, MEDICAID, SELFPAY ==
--- NOTE | 2021-07-04 | EST_ITS ---
Patient Info Name: Chivo Cosby Age: 45 years : 1975 Gender: Male Ht: 69 in Wt: 238 lbs BSA: 2.33 m2 HR: 83 bpm BP: 116 / 85 mmHg Heart Rhythm: Sinus Rhythm Exam Date: 07/04/2021 9:57 AM Exam Location: [facility] Stress Patient Status: Outpatient Admit Date: 07/04/2021 Staff Ordering Physician: Lobo Gross DO Industrial Maintenance Instructor: Isa Jane RDCS Attending Provider: Lobo Gross DO Exercise Technologist: Shana Whatley CT Exercise Physician: Lobo Gross DO Exam Type: CA stress echo Study Info Indications R07.9 - Chest pain, unspecified Treadmill exercise stress echocardiogram is performed. Summary 1. 1. Negative Manish exercise stress test for ischemic ST changes by ECG criteria. 2. 2. Good functional capacity, achieving 12 METs of workload. 3. 3. Appropriate HR response to exercise. 4. 4. Appropriate HR recovery at 1 minute post exercise. 5. 5. Negative stress echocardiogram for ischemia by wall motion analysis. 6. 6. Patient informed of the above results. Stress Echo Findings Left Ventricle Appropriate increase in LV endocardial thickening with systole. Appropriate augmentation of contractility with systole. No wall motion abnormality. Left Ventricle Normal LV systolic function, no wall motion abnormality. Protocol: Manish Stress ECG Details Stage: REST Duration (min): 0 min : 57 sec Speed (mph): 0.0 Grade (%): 0 HR (bpm): 83 SBP (mmHg): 116 DBP (mmHg): 85 METS: --- Stage: REST Duration (min): 26 min : 36 sec Speed (mph): 0.0 Grade (%): 0 HR (bpm): 79 SBP (mmHg): 116 DBP (mmHg): 85 METS: --- Stage: STAGE 1 Duration (min): 1 min : 0 sec Speed (mph): 1.7 Grade (%): 10 HR (bpm): 105 SBP (mmHg): 116 DBP (mmHg): 85 METS: --- Stage: STAGE 1 Duration (min): 2 min : 0 sec Speed (mph): 1.7 Grade (%): 10 HR (bpm): 114 SBP (mmHg): 116 DBP (mmHg): 85 METS: --- Stage: STAGE 1 Duration (min): 3 min : 0 sec Speed (mph): 1.7 Grade (%): 10 HR (bpm): 117 SBP (mmHg): 143 DBP (mmHg): 59 METS: --- Stage: STAGE 2 Duration (min): 1 min : 0 sec Speed (mph): 2.5 Grade (%): 12 HR (bpm): 123 SBP (mmHg): 143 DBP (mmHg): 59 METS: --- Stage: STAGE 2 Duration (min): 2 min : 0 sec Speed (mph): 2.5 Grade (%): 12 HR (bpm): 129 SBP (mmHg): 153 DBP (mmHg): 94 METS: --- Stage: STAGE 2 Duration (min): 3 min : 0 sec Speed (mph): 2.5 Grade (%): 12 HR (bpm): 129 SBP (mmHg): 153 DBP (mmHg): 94 METS: --- Stage: STAGE 3 Duration (min): 1 min : 0 sec Speed (mph): 3.4 Grade (%): 14 HR (bpm): 140 SBP (mmHg): 134 DBP (mmHg): 56 METS: --- Stage: STAGE 3 Duration (min): 2 min : 0 sec Speed (mph): 3.4 Grade (%): 14 HR (bpm): 144 SBP (mmHg): 134 DBP (mmHg): 56 METS: --- Stage: STAGE 3 Duration (min): 3 min : 0 sec Speed (mph):
== END 2021-07-04 09:13 | disposition home or self-care (01) ==
LOC: ANHCARD 09:13
PROVIDERS: PCP Family Medicine; Visit Provider Internal Medicine Cardiovascular Disease
DX: R07.89 Other chest pain (principal)
CPT/HCPCS: 93351

== ENCOUNTER 2021-09-15 07:02 | Outpatient (CLI) | payer BC, MEDICAID, SELFPAY ==
[2021-09-15 08:03] LABS: Cholesterol 231 mg/dL (0-200); HDL Direct 27 mg/dL; Triglycerides 376 mg/dL (<150)
[2021-09-15 08:05] LABS: Alanine Aminotransferase 43 U/L (6-50); Albumin Level 4.4 g/dL (3.5-5.1); Alkaline Phosphatase 61 U/L (38-126); Anion Gap 10 mmol/L (8-16); Aspartate Amino Transferase 31 U/L (17-59); Bilirubin,Total 0.5 mg/dL (0.2-1.3); Blood Urea Nitrogen 14 mg/dL (9-20); Carbon Dioxide 28 mmol/L (22-30); Chloride 103 mmol/L (98-107); Estimated Glomerular Filt Rate > 60; Glucose 99 mg/dL (65-110); Potassium 4.4 mmol/L (3.4-5.0); Sodium 141 mmol/L (137-145)
[2021-09-15 08:14] LABS: LDL Cholesterol Direct 110 mg/dL
== END 2021-09-15 07:03 | disposition home or self-care (01) ==
PROVIDERS: PCP Family Medicine; Visit Provider Internal Medicine Cardiovascular Disease
DX: E78.5 Hyperlipidemia, unspecified (principal); I10 Essential (primary) hypertension
CPT/HCPCS: 36415; 80053; 80061

== ENCOUNTER 2021-11-09 01:04 | Day surgery (SDC) | payer BC, MEDICAID, SELFPAY ==
[2021-11-09 09:04] VITALS: BP 127/86; PULSE 81; RESP 15; TEMP 36.6; O2SAT 97; BMI 35.2
--- NOTE | 2021-11-09 10:15 | WPDHPUPDATE1 ---
History and Physical Update Update Date/Time: 11/09/21 10:15 Patient with atypical sx, symptoms of flushing, some sinus tachycardia, 1 episode of syncope that was not associated with any arrhythmias while being monitored (poss vasovagal?).. Thirty day monitoring has shown some brief pauses the longest being 3.4 seconds, the rest under 3 seconds which did not seem to be correlated with any typical symptoms of bradycardia. I recommended of the recorder for further monitoring. History and Physical has been reviewed, including an updated exam of the patient. There are NO changes in the patient's condition. Risks, benefits, and alternatives have been discussed and questions answered. Patient agrees to proceed with procedure.
[2021-11-09] MEDS: LIDOCAINE HCL 1% LOCAL INJ 20 ML VIAL (10:22)
--- NOTE | 2021-11-09 10:34 | SUR.OPER ---
PT tolerated procedure well. Instruction reviewed with pt
--- NOTE | 2021-11-09 10:36 | PM.OP ---
Procedure Note - Brief Procedure Note - Brief Date of procedure: 11/09/21 Pre-op diagnosis: syncope Syncope X 1, not associated with arrhythmia, brief sinus pauses Post-op diagnosis: Other (s/p Biotronik Loop Recorder) Description of procedure: Uneventful implantation of a Biotronik loop recorder under local anesthesia Surgeon: Georgette Nevarez MD
--- NOTE | 2021-11-09 10:38 | P.OP_ITS ---
Procedure Note - Detailed Date of Procedure 11/09/21 Pre-op Diagnosis syncope x1 not associated with arrhythmias, brief sinus pauses, symptoms of fatigue, palpitations Post-op Diagnosis Other (Status post implantation of a Biotronik loop recorder) Procedure Performed Insertion of a Biotronik loop recorder under local anesthesia Surgeon Georgette Nevarez MD Indications Sinus pauses, atypical symptoms, syncope x1 not associated with arrhythmia, palpitations, sinus tachycardia Description of Procedure After informed consent, the patient's left parasternal area was prepped and draped in usual fashion. The patient received 1% lidocaine over the 3rd-4th intercostal space and a Biotronik loop recorder was inserted in the standard fashion. Hemostasis is was obtained with local pressure. The incision was closed with Dermabond, and dressed with a clean large Band-Aid. The patient t olerated the procedure well with no complications. The device was interrogated and R-wave sensing was found to be good. Follow-up: The patient is given information about remote monitoring, will fol low-up in our office in 1 week for an incision check Implants Biotronik loop recorder, model [id number], serial [id number] Complications No immediate complications Condition Stable Disposition Observation
== END 2021-11-09 11:00 | disposition home or self-care (01) ==
PROVIDERS: PCP Family Medicine; Visit Provider Internal Medicine Cardiovascular Disease
PROC: (CPT 33285; principal; 2021-11-09 10:00)
DX: R55 Syncope and collapse (principal); R00.2 Palpitations; I10 Essential (primary) hypertension; F90.9 Attention-deficit hyperactivity disorder, unspecified type
CPT/HCPCS: 33285; C1764

== ENCOUNTER 2021-11-16 10:55 | Emergency (ER) | payer BC, MEDICAID, SELFPAY ==
[2021-11-16] VITALS (16 sets, daily range): BP systolic 136–153; BP diastolic 92–111; PULSE 100–128; RESP 10–24; TEMP 37; O2SAT 96–100
--- NOTE | ~2021-11-16 | CT_ITS ---
EXAMINATION:CT diagnostic chest w con DATE: 11/16/2021 15:11 INDICATION: Left chest wound. TECHNIQUE: Computed tomography (CT) of the chest was performed with 75 mL Omnipaque 350 is intravenou s contrast. Automated exposure control and iterative reconstruction technique were employed. The dose -length product (DLP) was 445.67 mGy-cm. COMPARISON: CT abdomen and pelvis 05/23/2021 FINDINGS: There is there is no pneumonia or pleural effusion. The heart size is normal. No pericardia l effusion. There is a small sliding hiatal hernia. There is diffuse hepatic steatosis. There is fat stranding in left anterior abdominal wall with small focus of gas at the site of recent device remova l. There is mild thoracic spondylosis. IMPRESSION: 1. Inflammation in left anterior chest wall at the site of recent device removal. No abscess. Reviewed, dictated and finalized at location A. IMPRESSION: 1. Inflammation in left anterior chest wall at the site of recent device remova l. No abscess.
--- NOTE | ~2021-11-16 | XR_ITS ---
EXAMINATION: XR chest 1V portable INDICATION: Chest pain TECHNIQUE: Portable AP chest at 1317 hours COMPARISON: 04/27/2021 FINDINGS: The lungs are free of acute opacities. No pleural effusion or pneumothorax. The cardiomedia stinal silhouette is normal. IMPRESSION: 1. No acute cardiopulmonary abnormality. Reviewed, dictated and finalized at location A.
--- NOTE | 2021-11-16 11:54 | ECG_ITS ---
Measurements Intervals [place] Rate: 131 P: 41 NV: 160 QRS: 44 QRSD: 96 T: 32 QT: 288 QTc: 426 Interpretive Statements SINUS TACHYCARDIA DELAYED PRECORDIAL R/S TRANSITION LOW QRS VOLTAGE IN PRECORDIAL LEADS MINIMAL Q WAVES- INFERIOR LEADS BORDERLINE T WAVE ABNORMALITY- ANT/INF LEADS COMPARED TO ECG 04/27/2021 18:09:47 NO SIGNIFICANT CHANGES Electronically Signed On 11-16-2021 12:32:36 CDT by Lobo Gross D.O.
[2021-11-16] MEDS: SODIUM CHLORIDE 0.9% IV 1,000 ML 999 ML IV CONT (12:28)
[2021-11-16 12:30] LABS: Basophils Absolute Auto 0.1 K/mm3 (0.0-0.1); Basophils Percent Auto 0.7 % (0.2-1.2); Eosinophils Absolute Auto 0.2 K/mm3 (0-0.3); Eosinophils Percent Auto 1.8 % (0-4.4); Hematocrit 44.4 % (42.0-52.0); Hemoglobin 15.5 g/dL (14.0-18.0); Immature Granulocyte Absolute 0.03 K/mm3 (0.00-0.031); Immature Granulocyte Percent A 0.3 % (0-0.5); Lymphocytes Absolute Auto 2.74 K/mm3 (0.9-3.2); Lymphocytes Percent Auto 29.8 % (18.3-44.2); Mean Corpuscular HGB Conc 34.9 g/dl (32-36); Mean Platelet Volume 9.6 fl (7.4-10.4); Monocytes Absolute Auto 0.6 K/mm3 (0.1-0.6); Monocytes Percent Auto 6.3 % (2.6-8.5); Neutrophils Absolute Auto 5.6 K/mm3 (1.3-6.7); Neutrophils Percent Auto 61.1 % (45.5-73.1); Platelet Count Result 299 k/mm3 (150-375); Red Blood Count 5.16 M/mm3 (4.6-6.20); Red Cell Distribution Width 11.9 % (11.5-14.5); White Blood Count 9.2 K/mm3 (4.5-10.0)
[2021-11-16 12:41] LABS: INR 0.9; Partial Thromboplastin Time 26.4 SECONDS (22.3-36.8); Prothrombin Time 12.1 Seconds (11.1-14.7)
[2021-11-16 12:43] LABS: Lactic Acid Reflex 1.4 mmol/L (0.7-2.0)
[2021-11-16 12:44] LABS: Alanine Aminotransferase 51 U/L (6-50); Albumin Level 4.8 g/dL (3.5-5.1); Alkaline Phosphatase 70 U/L (38-126); Anion Gap 11 mmol/L (8-16); Aspartate Amino Transferase 43 U/L (17-59); Bilirubin,Total 0.3 mg/dL (0.2-1.3); Blood Urea Nitrogen 8 mg/dL (9-20); Calcium 9.8 mg/dL (8.4-10.2); Carbon Dioxide 29 mmol/L (22-30); Chloride 100 mmol/L (98-107); Estimated CRCL calculation 99 ml/min; Estimated Glomerular Filt Rate > 60; Glucose 98 mg/dL (65-110); Potassium 4.1 mmol/L (3.4-5.0); Sodium 140 mmol/L (137-145)
--- NOTE | 2021-11-16 13:08 | ED.GENADULT ---
HPI - General Adult General Chief complaint: Recheck/Abnormal Lab/Rx Stated complaint: from ac/dc rewinder, wound Time Seen by Provider: 11/16/21 11:08 Source: RN notes reviewed History of Present Illness HPI narrative: Patient presents emergency department from the cardiology office for wound infection. Patient states he had a loop recorder placed by Dr. alvarado a week ago he had gone for his checkup today and the loop recorder had been noted to be sticking out of the skin states he had been noticing some redness around the area and some mild drainage the office and sent to the ER for further evaluation he denies any fevers or chills chest pain shortness of breath or any other symptoms does note some soreness around the site of placement. He states he is followed by Dr. Gross for cardiology for arrhythmias and tachycardia Related Data Home Medications Medication Instructions Recorded Confirmed lisdexamfetamine 30 mg capsule 30 mg PO DAILY 06/07/20 11/09/21 (Vyvanse) clonazepam 0.5 mg tablet 0.5 mg PO BID 04/27/21 11/09/21 omega 4-gwl-sxq-fish oil 1,000 mg 1 cap PO BID 05/31/21 11/09/21 (120 mg-180 mg) capsule (Fish Oil) Allergies Allergy/AdvReac Type Severity Reaction Status Date / Time No Known Allergies Allergy Verified 11/16/21 11:09 Review of Systems Review of Systems: Gen.: Denies fevers or chills ENT: Denies congestion Respiratory: Denies shortness of breath or cough CV: Denies chest pain reports history of palpitations GI: Denies abdominal pain nausea, emesis Musculoskeletal: Denies back pain or muscle pain Neuro: Denies headache or weakness Skin: See HPI Except as documented, all other systems reviewed and negative PMF Past Medical History Medical History Achilles tendinitis of left lower extremity Allergies Anxiety Arthritis Bulging disc Degenerative disc disease Family history of prostate problems Genital warts due to HPV (human papillomavirus) Headache HPV in male IBS (irritable bowel syndrome) Migraine METZ (nonalcoholic steatohepatitis) Right rotator cuff tendonitis Rotator cuff tear, right Stress fracture, left foot, initial encounter for fracture Ulcer Surgical History Surgical History H/O foot surgery History of nasal surgery Family History Family History Father Alcoholism Hypertension Depression Heart disease Malignant neoplasm of prostate Mother HPV (human papilloma virus) infection Depression Thyroid disease Osteoarthritis Sibling Heart disease Daughter Depression Grandparent Alcoholism Cancer Depression Malignant neoplasm of prostate Social History Social History Smoking status: Never smoker Tobacco type: cigarettes Alcohol intake: current Alcohol use details: OCCASIONALLY Substance use: unknown Spiritual care concerns: No Exam Narrative: APPEARANCE: No acute distress, nontoxic, resting in bed EYES: EOMI HEENT: Normocephalic, atraumatic, OMM RESPIRATORY: No respiratory distress Clear to auscultation bilaterally with no rhonchi wheezing or rales. CARDIOVASCULAR: Tachycardic and without murmurs rubs or gallops. ABDOMINAL: Soft, nontender, nondistended, no rebound or guarding MUSCULOSKELETAl: Moves all extremities. No clubbing, cyanosis or edema. NEURO: Awake and alert. Following commands, speech normal, no focal deficits SKIN:: Warm, dry. No rashes left chest wall has loop recorder sticking out of the skin with surrounding erythema mild tenderness around this area mild serous drainage PSYCHIATRIC: Normal affect/mood, Course Course Emergency Course: Discussed with Dr. Graham for cardiology states loop recorder can be removed recommends discussion of wound with surgery Discussed with Dr. Ortega
== END 2021-11-16 15:56 | disposition home or self-care (01) ==
PROVIDERS: Emergency Provider Emergency Medicine; PCP Family Medicine
DX: T81.40XA Infection following a procedure, unspecified, initial encounter (principal); F41.9 Anxiety disorder, unspecified; M19.90 Unspecified osteoarthritis, unspecified site; K75.81 Nonalcoholic steatohepatitis (NASH)
CPT/HCPCS: 36415; 71045; 71260; 80053; 83605; 85025; 85610; 85730; 87040; 87070; 87205; 93005; 96365; 96368; 99284; J0131; J0690; J7030; Q9967

== ENCOUNTER 2021-11-22 07:26 | Outpatient (CLI) | payer BC, MEDICAID, SELFPAY ==
[2021-11-22 07:53] LABS: Alanine Aminotransferase 89 U/L (6-50); Albumin Level 4.7 g/dL (3.5-5.1); Alkaline Phosphatase 66 U/L (38-126); Anion Gap 14 mmol/L (8-16); Aspartate Amino Transferase 72 U/L (17-59); Bilirubin,Total 0.6 mg/dL (0.2-1.3); Blood Urea Nitrogen 8 mg/dL (9-20); Calcium 9.5 mg/dL (8.4-10.2); Carbon Dioxide 30 mmol/L (22-30); Chloride 98 mmol/L (98-107); Cholesterol 251 mg/dL (0-200); Estimated Glomerular Filt Rate > 60; Glucose 118 mg/dL (65-110); HDL Direct 33 mg/dL; Potassium 4.1 mmol/L (3.4-5.0); Sodium 142 mmol/L (137-145); Triglycerides 380 mg/dL (<150)
[2021-11-22 08:04] LABS: LDL Cholesterol Direct 124 mg/dL
== END 2021-11-22 07:27 | disposition home or self-care (01) ==
LOC: ANHLAB 07:28
PROVIDERS: PCP Internal Medicine; Visit Provider Internal Medicine Cardiovascular Disease
DX: E78.5 Hyperlipidemia, unspecified (principal)
CPT/HCPCS: 36415; 80053; 80061

== ENCOUNTER 2021-11-25 11:41 | Outpatient (RCR) | payer BC, MEDICAID, SELFPAY ==
[2021-11-25 12:00] VITALS: BMI 34.0
== END 2022-02-15 07:35 | disposition home or self-care (01) ==
LOC: ANHWOC 11:41
PROVIDERS: PCP Internal Medicine; Visit Provider Clinical Nurse Specialist
DX: T81.49XD Infection following a procedure, other surgical site, subsequent encounter (principal)
CPT/HCPCS: 99213; G0463

== ENCOUNTER 2022-03-17 08:44 | Outpatient (CLI) | payer BC, MEDICAID, SELFPAY ==
[2022-03-17 19:54] LABS: Alanine Aminotransferase 52 U/L (6-50); Albumin Level 4.2 g/dL (3.5-5.1); Alkaline Phosphatase 72 U/L (38-126); Anion Gap 9 mmol/L (8-16); Aspartate Amino Transferase 43 U/L (17-59); Bilirubin,Total 0.4 mg/dL (0.2-1.3); Blood Urea Nitrogen 28 mg/dL (9-20); Calcium 9.1 mg/dL (8.4-10.2); Carbon Dioxide 27 mmol/L (22-30); Chloride 102 mmol/L (98-107); Estimated Glomerular Filt Rate > 60; Glucose 86 mg/dL (65-110); Potassium 4.2 mmol/L (3.4-5.0); Sodium 138 mmol/L (137-145)
[2022-03-19 14:08] LABS: Lead, Blood <1.0 mcg/dL (<3.5)
[2022-03-21 16:09] LABS: Collection Sample Venous
== END 2022-03-17 08:45 | disposition home or self-care (01) ==
LOC: ANHGOSHLAB 08:46
PROVIDERS: Internal Medicine Cardiovascular Disease; PCP Family Medicine; Visit Provider Family Medicine
DX: E78.5 Hyperlipidemia, unspecified (principal); Z77.011 Contact with and (suspected) exposure to lead
CPT/HCPCS: 36415; 80053; 83655

== ENCOUNTER 2022-04-12 08:48 | Outpatient (CLI) | payer BC, MEDICAID, SELFPAY ==
[2022-04-12 18:55] LABS: Cholesterol 181 mg/dL (0-200); HDL Direct 28 mg/dL; Triglycerides 151 mg/dL (<150)
[2022-04-12 19:06] LABS: LDL Cholesterol Direct 104 mg/dL
== END 2022-04-12 08:49 | disposition home or self-care (01) ==
LOC: ANHGOSHLAB 08:49
PROVIDERS: PCP Family Medicine; Visit Provider Internal Medicine Cardiovascular Disease
DX: E78.5 Hyperlipidemia, unspecified (principal)
CPT/HCPCS: 36415; 80061

== ENCOUNTER 2022-06-09 19:22 | Observation (INO) | payer BC, MEDICAID, SELFPAY ==
[2022-06-09] VITALS (11 sets, daily range): BP systolic 127–141; BP diastolic 72–96; PULSE 88–118; RESP 17–20; TEMP 36.4–36.6; O2SAT 93–100
--- NOTE | ~2022-06-09 | CT_ITS ---
CT scan of the Neck Technique: 2.5 mm axial scans were obtained through the neck after intravenous administration of 75 c c Omnipaque 350. Coronal and sagittal reconstructions of the neck were obtained. Dose reduction techn ique was used on this scan by utilizing automated exposure control and iterative reconstruction techn ique. The dose-length product (DLP) was 603.07 mGy-cm. Clinical History: Right-sided otitis externa Findings: There is no evidence of any significant cervical lymphadenopathy. Several small, nonenlarged jugulo- digastric and posterior cervical lymph nodes are noted bilaterally. Parapharyngeal spaces appear norm al bilaterally. The parotid and submandibular glands appear normal. The pharyngeal mucosal spaces appear normal. No soft tissue masses are seen in the neck. There is pro bable soft tissue thickening and infiltration along the course of the right external auditory canal, especially as compared to the left side. The thyroid gland appears normal. Suggestion of minimal patchy groundglass opacities in the lung apic es. Impression: Findings consistent with right otitis externa. No evidence for parotitis. Minimal patchy groundglass opacity likely disease. Correlate for hypoventilatory change versus any po ssibility of minimal pulmonary edema or bronchiolitis. Reviewed, dictated and finalized at location . Impression: Findings consistent with right otitis externa. No evidence for parotitis. Minimal patchy groundglass opacity likely disease. Correlate for hypoventilator y change versus any possibility of minimal pulmonary edema or bronchiolitis.
--- NOTE | 2022-06-09 20:05 | ED.EAR ---
HPI - Ear Problem General Chief complaint: Ear Stated complaint: right ear pain/swelling Time Seen by Provider: 06/09/22 19:41 History of Present Illness HPI Narrative: Patient is a 46-year-old male presenting with right ear pain. Patient states that he has been having progressive right ear pain for the last week. States that he saw his PCP who started him on ciprofloxacin drops. States that these drops have not helped so he saw ENT earlier today. States that he was told that he may have malignant otitis externa as well as parotitis. He was advised to continue milking his parotid gland and continue the antibiotics but if he worsen to come to the ER. Unfortunately, he states that the swelling over his right face and the pain has continued to progress. States that he is now having pain going into his jaw and neck. States that his right ear feels clogged. He reports general malaise and chills. Denies numbness or weakness, vision changes, speech changes, difficulty breathing or swallowing, chest pain, cough, abdominal pain, nausea or vomiting, rashes. Related Data Home Medications Medication Instructions Recorded Confirmed clonazepam 0.5 mg tablet 0.5 mg PO BID 04/27/21 06/10/22 methylphenidate HCl 40 mg 40 mg PO QHS 11/18/21 06/10/22 capsule,delayed release,ext release sprinkle (Jornay PM) trazodone 50 mg tablet 50 mg PO QHS 06/08/22 06/10/22 Allergies Allergy/AdvReac Type Severity Reaction Status Date / Time No Known Allergies Allergy Verified 06/10/22 00:33 Review of Systems Review of Systems: All systems reviewed & are unremarkable except as noted in HPI and below PMFSH Past Medical History Medical History (Updated 06/15/22 @ 14:32 by Misti Masters MD) Anxiety Arthritis Attention deficit hyperactivity disorder Bulging disc Degenerative disc disease Genital warts due to HPV (human papillomavirus) Gout Headache Hyperlipidemia IBS (irritable bowel syndrome) Migraine METZ (nonalcoholic steatohepatitis) Obesity Obstructive sleep apnea on CPAP Polysomnogram 04/2021 patient is treated with auto PAP 5-15 cm of water Right rotator cuff tendonitis Rotator cuff tear, right Infraspinatus Ulcer Surgical History Surgical History H/O foot surgery H/O nasal polypectomy History of rhinoplasty Family History Family History (Updated 06/10/22 @ 06:12 by Naima Toscano DO) Father Alcoholism Hypertension Depression Heart disease Malignant neoplasm of prostate Atrial fibrillation Mother HPV (human papilloma virus) infection Depression Thyroid disease Osteoarthritis Sibling Heart disease Autoimmune disease Daughter Depression Grandparent Alcoholism Cancer Depression Malignant neoplasm of prostate Social History Social History (Updated 06/10/22 @ 06:12 by Naima Toscano DO) Social History: Code status: Full code Surrogate decision maker: Smoking packs per day: 2 Smoking cigarettes per day: 40.0 Years smoked: 10 Smoking pack-years: 20.00 Smoking status: Former smoker Tobacco type: cigarettes Alcohol intake: current Drinks per week: 1 Alcohol use details: OCCASIONALLY Substance use: never Lack of Transportation: No Lack of Food: Sometimes True Current Housing: I Have Housing Concerned About Future Housing: No Difficulty Paying Gas/Electric Bills: No Difficulty Paying for Meds: No Currently Unemployed: No Education: Decline to Answer Difficulty w/ Childcare or Family Care: No Living arrangements: with family Additional living arrangements comments: The patient lives with his of 20 years and his 7 children 6 of which are adopted. His children range in age from 22 years old to 11 years old. 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
[2022-06-09] MEDS: SODIUM CHLORIDE 0.9% IV 1,000 ML 999 ML IV CONT (20:12)
[2022-06-09] MEDS: KETOROLAC 15 MG/ML VIAL (*BKC) IV PUSH (20:14)
[2022-06-09] MEDS: HYDROmorphone HCL INJ (*CRX) 1 MG/ML SYR 0.5 MG IV PUSH (20:14)
[2022-06-09 20:15] LABS: Basophils Absolute Auto 0.1 K/mm3 (0.0-0.1); Basophils Percent Auto 0.5 % (0.2-1.2); Eosinophils Absolute Auto 0.1 K/mm3 (0-0.3); Eosinophils Percent Auto 0.8 % (0-4.4); Hematocrit 50.4 % (42.0-52.0); Hemoglobin 17.6 g/dL (14.0-18.0); Immature Granulocyte Absolute 0.03 K/mm3 (0.00-0.031); Immature Granulocyte Percent A 0.3 % (0-0.5); Lymphocytes Absolute Auto 1.43 K/mm3 (0.9-3.2); Lymphocytes Percent Auto 14.4 % (18.3-44.2); Mean Corpuscular HGB Conc 34.9 g/dl (32-36); Mean Corpuscular Hemoglobin 30.4 pg (26-34); Mean Corpuscular Volume 87.2 fl (80-100); Mean Platelet Volume 9.7 fl (7.4-10.4); Monocytes Absolute Auto 0.6 K/mm3 (0.1-0.6); Monocytes Percent Auto 6.2 % (2.6-8.5); Neutrophils Absolute Auto 7.7 K/mm3 (1.3-6.7); Neutrophils Percent Auto 77.8 % (45.5-73.1); Platelet Count Result 341 k/mm3 (150-375); Red Blood Count 5.78 M/mm3 (4.6-6.20); Red Cell Distribution Width 12.1 % (11.5-14.5); White Blood Count 9.9 K/mm3 (4.5-10.0)
[2022-06-09 20:26] LABS: Alanine Aminotransferase 32 U/L (6-50); Albumin Level 5.1 g/dL (3.5-5.1); Alkaline Phosphatase 85 U/L (38-126); Anion Gap 7 mmol/L (8-16); Aspartate Amino Transferase 26 U/L (17-59); Bilirubin,Total 0.5 mg/dL (0.2-1.3); Blood Urea Nitrogen 15 mg/dL (9-20); Calcium 9.6 mg/dL (8.4-10.2); Carbon Dioxide 30 mmol/L (22-30); Chloride 103 mmol/L (98-107); Estimated CRCL calculation 78 ml/min; Estimated Glomerular Filt Rate 60; Glucose 89 mg/dL (65-110); Potassium 4.2 mmol/L (3.4-5.0); Sodium 140 mmol/L (137-145)
[2022-06-09 20:40] LABS: CRP 2.2 mg/dL (<1.0)
[2022-06-09 20:45] LABS: Lactic Acid Reflex 1.2 mmol/L (0.7-2.0)
[2022-06-09 20:56] LABS: Erythrocyte Sedimentation Rate 6 mm/hr (0-20)
[2022-06-09] MEDS: PIPERACILLN/TAZ 3.375GM/NS50ML 3.375 GM/50 ML BAG IVPB (21:35)
[2022-06-09] MEDS: CIPROFLOXACIN 400 MG/D5W 200ML 200 ML 200 MG IVPB (22:35)
--- NOTE | 2022-06-10 00:10 | ADMGEN ---
This patient, Chivo Cosby II, was admitted to Medical Room 340-01. Patient/family oriented to hospital policies and general routines including ID bracelet, bed and alarms, visiting hours, pain management, procedures, bathroom and other care routines, personal items, smoking policy, room service/diet, and visiting hours. Information on how to activate the Rapid Response Team has been discussed. Patient/Family are encouraged to report perceived risks to care and to ask questions if they do not understand what they are told or what they should do.
[2022-06-10 00:17] VITALS: BP 126/95; PULSE 78; RESP 16; TEMP 36.7; O2SAT 100
[2022-06-10 00:19] VITALS: BMI 37.1
--- NOTE | 2022-06-10 01:08 | PCRCNOTE ---
Pt does not want to wear Hospital CPAP, will have family bring his
[2022-06-10] MEDS: traZODone HCL 50 MG TABLET PO ×2 (02:38→20:25)
[2022-06-10] MEDS: KETOROLAC 30 MG/ML VIAL (*BKC) IV PUSH ×2 (02:39→19:29)
--- NOTE | 2022-06-10 05:13 | PM.IMHP ---
H&P: HPI History of Present Illness Date/Time: 06/10/22 01:00 Chief Complaint: Right ear pain Narrative: 46-year-old male with a past medical history of anxiety, ADHD, insomnia and obstructive sleep apnea who presented to the ER with right ear pain. The patient reports that approximately 10 days ago he began having pain in his right ear. Accompanied by some leakage of some fluid when he would take his ear buds out of his ear. He reports that he was having some skin irritation and blistering to the year. He had some loose in peeling skin that he was picking at. He went on a trip to [place] at which time he did do some swimming. When he returned from the trip he did have some muffled hearing and some jaw pain. He also noted some swelling and warmth over the right ear and down the side of his neck. He would have increased discomfort with talking and chewing food. He developed some fatigue on the . He went to see a primary care physician 06/08/2022 and was started on p.o. Cipro and ciprofloxacin ear drops. He reports that when he with but the ear drops into his year he would lay there for several minutes and then when he was set up the eardrops would run out of his ear. He reported that over the course of his illness he noticed more more pain in the area of the ear and jaw. He has tried some Tylenol at home without improvement in his symptoms. He has been compliant with the antibiotics prescribed by his primary care physician. He was referred to ENT, Dr. Thornton. He was evaluated by Dr. Srivastava on the at which time he had a edematous ear canal he had debridement of his right ear canal in the office with erythema and edematous tympanic membrane with a bleb that was ruptured and aspirated. The patient was instructed how to milk the parotid gland is he did have some prostatitis noted. The patient reports when he returned home he had increasing pain of his right jaw. The pain currently 7/10 in rising. He contacted Dr. Thornton who recommended come to the ER for CT. The patient was then admitted for IV antibiotics. The patient received IV Tylenol and 15 mg of IV Toradol in the ER as well as a 0.5 mg of Dilaudid. Review of Systems Review of Systems: 12 systems were reviewed with pertinent positives and negatives per HPI. Except as documented in the HPI, all other systems were reviewed and are negative. He reports that he has a history of hyperlipidemia but started on a restricted carb diet of 80 carbs a day and has had improvement in his cholesterol. He also reports that he has had resolution of his fatty liver with this diet. He reports that he has lost 20 lb with this diet. He reports that he had a implanted loop recorder placed last year in 2021 which is body rejected. He has been following with cardiology discussing whether not he needs a pacemaker or recurrent loop recorder. He was post have the pacemaker placed due to sinus pauses of approximately 3 seconds. However patient has not had any incidence of loss of consciousness. He does report sensations of feeling flushed. He is concerned that he may have autoimmune disease as his sister has what sounds like anemia autoimmune vasculitis. He reports that he thinks he may have an autoimmune disorder affecting his legs. He denies any history of blood clots. [facility] Past Medical History Medical History (Updated 06/10/22 @ 06:09 by Naima Toscano DO) Anxiety Arthritis Attention deficit hyperactivity disorder Bulging disc Degenerative disc disease Genital warts due to HPV (human papillomavirus) Gout Headache Hyperlipidemia IBS (irritable bowel syndrome) Migraine METZ (nonalcoholic steatohepatitis) Obesity Obstructive sleep apnea on CPAP Polysomnogram 04/2021 patient is treated with auto PAP 5-15 cm of water Right rotator cuff tendonitis Rotator cuff tear, right Infraspinatus Ulcer Surgical History Surgical History H/O sugar
[2022-06-10 05:52] VITALS: BP 105/75; PULSE 60; RESP 16; TEMP 36.7; O2SAT 100
[2022-06-10] MEDS: PIPERACILLIN/TAZOBACTAM SOD 4.5 GM in SODIUM CHLORIDE 0.9% IV 100 ML 200 ML IVPB ×3 (06:12→23:59)
[2022-06-10 08:10] LABS: Basophils Percent Auto 0.4 % (0.2-1.2); Eosinophils Absolute Auto 0.1 K/mm3 (0-0.3); Eosinophils Percent Auto 1.5 % (0-4.4); Hematocrit 44.1 % (42.0-52.0); Hemoglobin 14.5 g/dL (14.0-18.0); Immature Granulocyte Absolute 0.02 K/mm3 (0.00-0.031); Immature Granulocyte Percent A 0.2 % (0-0.5); Lymphocytes Percent Auto 28.8 % (18.3-44.2); Mean Corpuscular HGB Conc 32.9 g/dl (32-36); Mean Corpuscular Hemoglobin 29.6 pg (26-34); Mean Platelet Volume 9.7 fl (7.4-10.4); Monocytes Absolute Auto 0.8 K/mm3 (0.1-0.6); Monocytes Percent Auto 8.4 % (2.6-8.5); Neutrophils Absolute Auto 5.5 K/mm3 (1.3-6.7); Neutrophils Percent Auto 60.7 % (45.5-73.1); Platelet Count Result 290 k/mm3 (150-375); Red Cell Distribution Width 12.3 % (11.5-14.5)
[2022-06-10] MEDS: clonazePAM (*CRX) 0.5 MG TABLET PO ×2 (08:11→17:04)
[2022-06-10] MEDS: predniSONE 10 MG TABLET PO (08:11)
--- NOTE | 2022-06-10 08:29 | PM.IMPN ---
Progress Note: A&P Assessment and Plan (1) Malignant otitis externa of right ear: Code(s): H60.21 - Malignant otitis externa, right ear Status: Acute Assessment and Plan: Patient has otitis externa is likely from his recent swimming and the fact that he was having peeling skin from his ear that he was picking at prior to going on his trip. He probably had breakdown of the skin with subsequent secondary infection. Otitis externa possibly malignant in nature. He reports taking approximately 4 doses of Cipro oral tablets prior to admission (the day before, the morning of, and before presenting to the emergency department). Started on antibiotics with IV Zosyn 4.5 g IV q.[address] Thornton has been consulted. Continue oral prednisone and Cipro ear drops as prescribed by ENT outpatient. MRSA nasal swab collected to evaluate for possible colonization. CT soft tissue neck did not show an abscess. (2) Preauricular cellulitis: Code(s): L03.211 - Cellulitis of face Status: Acute Assessment and Plan: As above (3) Obstructive sleep apnea on CPAP: Code(s): G47.33 - Obstructive sleep apnea (adult) (pediatric); Z99.89 - Dependence on other enabling machines and devices Status: Chronic Assessment and Plan: The patient states that he does not wanted CPAP placed currently in the hospital. He reports compliance with his CPAP at home. (4) Anxiety: Code(s): F41.9 - Anxiety disorder, unspecified Status: Chronic Assessment and Plan: Chronic, does not appear acutely anxious. Continue Clonazepam and trazodone at home doses. (5) ADD (attention deficit disorder): Qualifiers: Hyperactivity presence: present Attention deficit-hyperactivity disorder type: predominantly hyperactive Qualified Code(s): F90.1 - Attention-deficit hyperactivity disorder, predominantly hyperactive type Code(s): F98.8 - Other specified behavioral and emotional disorders with onset usually occurring in childhood and adolescence Status: Chronic Assessment and Plan: Will hold the patient's ADD meds. Plan Code status: Full code Disposition: Patient is from home and independent with ADLs. No discharge needs identified at this time. Time Spent With Patient Time: 30 minutes time spent with patient assessment, patient education, review of labs, vitals and nursing documentation. All questions answered to the best of my ability. Subjective Date/time seen: 06/10/22 08:29 Interval history: Patient complains of right masseter and right ear pain and swelling. He states the pain significantly worsened yesterday evening. He had been taking oral ciprofloxacin for approximately 48 hours (4 tablets) and had had 1 dose of oral prednisone prescribed by his ENT provider. He reports compliance with taking Ciprodex ear drops, however he did not feel that the ear drops were getting into his inner ear. He endorses trismus, headache to the right side, and muffled hearing to the right. He has had some chills and fatigue in the past few days. He reports he currently has an event monitor for evaluation of tachycardia (patient does not know type of tachycardia) and history of pauses. He has also had issues with Achilles tendonitis and bleeding within the joint. He is currently being worked up for autoimmune disorder. Review of Systems Review of Systems: All systems reviewed & are unremarkable except as noted in HPI and below Exam Narrative: General: No acute distress.? Nontoxic appearing, well-developed adult male. Mental Status/Psych: Awake, alert and oriented x4 with clear speech. Pleasant and cooperative. Neutral mood and affect Skin: fair, warm, dry and intact without rashes. Fair turgor.?no cyanosis. HEENT: Normocephalic. PERRL. Sclera is non-icteric. Left tympanic membrane intact without bulging, retraction, serous or purulent discharge n
--- NOTE | 2022-06-10 09:06 | PC.NURSE ---
Addendum entered by Caren Barkley RN 06/10/22 09:14: Provider Ayesha Lin APN, notified of Dr ventura. Original Note: Spoke with Dr Sun & relayed information regarding the reason for consult per H&P. Dr Sun says he won't see the patient for an outer ear infection which can be treated with antibiotic ear drops. This is noted in the consult order.
[2022-06-10] MEDS: HYDROcodone/acetaminophen (*CRX) 5-325 MG TABLET 1 TAB PO ×3 (09:08→21:23)
[2022-06-10 14:00] VITALS: BP 112/67; PULSE 78; RESP 18; TEMP 36.6; O2SAT 99
[2022-06-10] MEDS: CIPROFLOXACIN HCL 0.3% OP SOLN 2.5 ML BTL 5 DROP RIGHT EAR ×2 (14:36→17:04)
--- NOTE | 2022-06-10 16:12 | WPDCN ---
Assessment and Plan Assessment and plan (1) Otitis externa of right ear: Code(s): H60.91 - Unspecified otitis externa, right ear Status: Acute Plan Continue iv anti pseudomonal abx while inpatient, white count is normal, restart drops, 5 drops tid, ensure non diabetic. Patient appears fairly well on exam other than right canal edema/erythema, non toxic. CT reviewed, non operative. HPI Data of Consult Date/Time: 06/10/22 16:12 Requesting Physician: Naima Toscano DO Primary Care Provider: Katrina Guzman DO Consult Narrative Narrative: Chivo Cosby II is a 46 year old male with right otitis externa, took 3 doses of cipro 5OOmg and ciprodex gtts. Worsening right sided pain. Seen in clinic yesterday. patient admitted. WBC never elevated, abs pmn improved following admission. Review of Systems Review of Systems: All systems reviewed & are unremarkable except as noted in HPI and below PMFSH Past Medical History Medical History (Updated 06/10/22 @ 13:40 by Ayesha Lin APRN) Anxiety Arthritis Attention deficit hyperactivity disorder Bulging disc Degenerative disc disease Genital warts due to HPV (human papillomavirus) Gout Headache Hyperlipidemia IBS (irritable bowel syndrome) Migraine METZ (nonalcoholic steatohepatitis) Obesity Obstructive sleep apnea on CPAP Polysomnogram 04/2021 patient is treated with auto PAP 5-15 cm of water Right rotator cuff tendonitis Rotator cuff tear, right Infraspinatus Ulcer Surgical History Surgical History H/O foot surgery H/O nasal polypectomy History of rhinoplasty Family History Family History (Updated 06/10/22 @ 06:12 by Naima Toscano DO) Father Alcoholism Hypertension Depression Heart disease Malignant neoplasm of prostate Atrial fibrillation Mother HPV (human papilloma virus) infection Depression Thyroid disease Osteoarthritis Sibling Heart disease Autoimmune disease Daughter Depression Grandparent Alcoholism Cancer Depression Malignant neoplasm of prostate Social History Social History (Updated 06/10/22 @ 06:12 by Naima Toscano DO) Social History: Code status: Full code Surrogate decision maker: Smoking packs per day: 2 Smoking cigarettes per day: 40.0 Years smoked: 10 Smoking pack-years: 20.00 Smoking status: Former smoker Tobacco type: cigarettes Alcohol intake: current Drinks per week: 1 Alcohol use details: OCCASIONALLY Substance use: never Lack of Transportation: No Lack of Food: Sometimes True Current Housing: I Have Housing Concerned About Future Housing: No Difficulty Paying Gas/Electric Bills: No Difficulty Paying for Meds: No Currently Unemployed: No Education: Decline to Answer Difficulty w/ Childcare or Family Care: No Living arrangements: with family Additional living arrangements comments: The patient lives with his of 20 years and his 7 children 6 of which are adopted. His children range in age from 22 years old to 11 years old. 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 Sexual Orientation (if Verbalized by the Patient): Lesbian, Gomez, or Homosexual Spiritual care concerns: No Meds Home Medications and Allergies Home Medications Medication Instructions Recorded Confirmed Type clonazepam 0.5 mg tablet 0.5 mg PO BID 04/27/21 06/10/22 History methylphenidate HCl 40 mg 40 mg PO QHS 11/18/21 06/10/22 History capsule,delayed release,ext release sprinkle (Jornay PM) ciprofloxacin HCl 500 mg tablet 500 mg PO Q12H #20 tabs 06/08/22 06/10/22 Rx trazodone 50 mg tablet 50 mg PO QHS 06/08/22 06/10/22 History ciprofloxacin 0.3 %-dexamethasone 5 drp RIGHT EAR TID #7.5 mL 06/09/22 06/10/22 Rx 0.1 % ear drops,suspension prednisone 5 mg tablet See Rx Instructions PO DAILY #11 06/09/22 06/10/22 Rx tabs Allergies Allergy/
[2022-06-10] MEDS: PIPERACILLIN/TAZOBACTAM SOD 4.5 GM in SODIUM CHLORIDE 0.9% IV 100 ML IVPB (17:05)
[2022-06-10 17:44] LABS: Hematocrit 43.5 % (42.0-52.0); Hemoglobin 14.5 g/dL (14.0-18.0)
[2022-06-10 19:19] VITALS: BP 135/77; PULSE 72; RESP 18; TEMP 36.6; O2SAT 100
[2022-06-11 04:12] VITALS: BP 113/56; PULSE 59; RESP 18; TEMP 36.6; O2SAT 96
[2022-06-11] MEDS: HYDROcodone/acetaminophen (*CRX) 5-325 MG TABLET 1 TAB PO ×2 (04:19→11:10)
[2022-06-11 05:47] LABS: Basophils Absolute Auto 0.1 K/mm3 (0.0-0.1); Basophils Percent Auto 0.5 % (0.2-1.2); Eosinophils Absolute Auto 0.2 K/mm3 (0-0.3); Hemoglobin 14.5 g/dL (14.0-18.0); Immature Granulocyte Absolute 0.02 K/mm3 (0.00-0.031); Immature Granulocyte Percent A 0.2 % (0-0.5); Lymphocytes Absolute Auto 2.95 K/mm3 (0.9-3.2); Lymphocytes Percent Auto 32.2 % (18.3-44.2); Mean Corpuscular Hemoglobin 29.7 pg (26-34); Mean Corpuscular Volume 90.2 fl (80-100); Mean Platelet Volume 9.6 fl (7.4-10.4); Monocytes Absolute Auto 0.7 K/mm3 (0.1-0.6); Monocytes Percent Auto 7.1 % (2.6-8.5); Neutrophils Absolute Auto 5.3 K/mm3 (1.3-6.7); Platelet Count Result 292 k/mm3 (150-375); Red Blood Count 4.88 M/mm3 (4.6-6.20); Red Cell Distribution Width 12.6 % (11.5-14.5); White Blood Count 9.2 K/mm3 (4.5-10.0)
[2022-06-11] MEDS: PIPERACILLIN/TAZOBACTAM SOD 4.5 GM in SODIUM CHLORIDE 0.9% IV 100 ML 200 ML IVPB ×2 (05:48→11:10)
[2022-06-11 06:04] LABS: Alanine Aminotransferase 24 U/L (6-50); Alkaline Phosphatase 79 U/L (38-126); Anion Gap 5 mmol/L (8-16); Aspartate Amino Transferase 22 U/L (17-59); Bilirubin,Total 0.4 mg/dL (0.2-1.3); Blood Urea Nitrogen 18 mg/dL (9-20); Calcium 8.3 mg/dL (8.4-10.2); Carbon Dioxide 27 mmol/L (22-30); Chloride 107 mmol/L (98-107); Estimated CRCL calculation 111 ml/min; Estimated Glomerular Filt Rate > 60; Glucose 100 mg/dL (65-110); Sodium 139 mmol/L (137-145)
[2022-06-11] MEDS: CIPROFLOXACIN HCL 0.3% OP SOLN 2.5 ML BTL 5 DROP RIGHT EAR ×2 (08:43→13:40)
[2022-06-11] MEDS: predniSONE 10 MG TABLET PO (08:43)
[2022-06-11] MEDS: KETOROLAC 30 MG/ML VIAL (*BKC) IV PUSH (08:45)
[2022-06-11] MEDS: clonazePAM (*CRX) 0.5 MG TABLET PO (13:40)
--- NOTE | 2022-06-11 13:46 | PC.NURSE ---
Patient did not want AM dose of klonopin. Patient asked for a dose at 1330. Gave scheduled 1700 at 1340 since patient never had scheduled 0900 dose.
[2022-06-11 14:00] VITALS: BP 120/73; PULSE 66; RESP 18; TEMP 37.1; O2SAT 99
--- NOTE | 2022-06-11 15:20 | PM.DS ---
DS: Admitting Diagnosis Discharge Date 06/11/22 Admitting Diagnosis otitis externa of right ear Preauricular cellulitis Obstructive sleep apnea on CPAP DS: Discharge Diagnosis Discharge Diagnosis (1) Otitis externa of right ear: Code(s): H60.91 - Unspecified otitis externa, right ear Status: Acute Assessment and Plan: Patient has otitis externa is likely from his recent swimming and the fact that he was having peeling skin from his ear that he was picking at prior to going on his trip. He probably had breakdown of the skin with subsequent secondary infection. Otitis externa possibly malignant in nature. He reports taking approximately 4 doses of Cipro oral tablets prior to admission (the day before, the morning of, and before presenting to the emergency department). Treated with IV Zosyn 4.5 g IV q.6 hours, started 06/09-06/[address] Thornton has been consulted. Continue oral prednisone and Cipro ear drops as prescribed by ENT outpatient. MRSA nasal swab collected to evaluate for possible colonization. CT soft tissue neck did not show an abscess. (2) Preauricular cellulitis: Code(s): L03.211 - Cellulitis of face Status: Acute Assessment and Plan: As above. Continue antibiotics and warm compresses. (3) Obstructive sleep apnea on CPAP: Code(s): G47.33 - Obstructive sleep apnea (adult) (pediatric); Z99.89 - Dependence on other enabling machines and devices Status: Chronic Assessment and Plan: The patient states that he does not wanted CPAP placed currently in the hospital. He reports compliance with his CPAP at home. (4) Anxiety: Code(s): F41.9 - Anxiety disorder, unspecified Status: Chronic Assessment and Plan: Chronic, does not appear acutely anxious. Continue Clonazepam and trazodone at home doses. (5) ADD (attention deficit disorder): Qualifiers: Attention deficit-hyperactivity disorder type: predominantly hyperactive Hyperactivity presence: present Qualified Code(s): F90.1 - Attention-deficit hyperactivity disorder, predominantly hyperactive type Code(s): F98.8 - Other specified behavioral and emotional disorders with onset usually occurring in childhood and adolescence Status: Chronic Assessment and Plan: May resume ADD medications at discharge. DS: Summary Hospital Course Reason for hospitalization: right ear pain Hospital Course: Patient is a 46-year-old male with anxiety, ADHD, insomnia obstructive sleep apnea, tachycardia who presented to the emergency department with complaints of right ear pain radiating to his right facial region and muffled hearing. He reported pain began in his right year approximately 10 days prior to admission accompanied by some leakage of fluids from his right ear when taking out his ear buds. He reported having some skin irritation and blistering in that ear as well as loose peeling skin that he had been picking at. Recently went on a trip to [place] and reported swimming. He had associated swelling and warmth over his right ear and down the side of his neck, as well as increased fatigue, discomfort with talking and chewing. He saw his primary care provider on 06/08 and was started on oral ciprofloxacin and ciprofloxacin ear drops. He was evaluated by Dr. Thornton, ENT on 06/09 and was noted to have edematous ear canal and debridement of his right ear canal rupture of tympanic bleb and aspiration was performed in the office. The patient was started on oral prednisone and instructed to milk the parotid gland. The patient's symptoms reportedly worsened back evening and he contacted Dr. Thornton who recommended he be evaluated in the emergency department. In the ED, patient was afebrile, had mild tachycardia HR 118, and mildly elevated blood pressure 141/72, SpO2 is stable on room air. Lab work showed WBC 9.9 without bandemia, lactic acid 1.2, ESR 6, and CRP 2.
== END 2022-06-11 16:55 | disposition home or self-care (01) ==
LOC: ANHED 20:02 → ANH3MED 06-11 15:20
PROVIDERS: Nurse Practitioner Family; Admitting Provider Internal Medicine; Emergency Provider Emergency Medicine; PCP Family Medicine; Visit Provider Internal Medicine
DX: H60.91 Unspecified otitis externa, right ear (principal); H60.11 Cellulitis of right external ear; L03.211 Cellulitis of face; R00.0 Tachycardia, unspecified; F41.9 Anxiety disorder, unspecified; F90.9 Attention-deficit hyperactivity disorder, unspecified type; F98.8 Other specified behavioral and emotional disorders with onset usually occurring in childhood and adolescence; E78.5 Hyperlipidemia, unspecified; M19.90 Unspecified osteoarthritis, unspecified site; G47.33 Obstructive sleep apnea (adult) (pediatric); G47.00 Insomnia, unspecified; Z87.891 Personal history of nicotine dependence; Z79.52 Long term (current) use of systemic steroids; Z79.899 Other long term (current) drug therapy
CPT/HCPCS: 36415; 70491; 80053; 83605; 85014; 85018; 85025; 85652; 86140; 87040; 87081; 96361; 96365; 96366; 96367; 96375; 96376; 99285; A9270; G0378; J0131; J0744; J1170; J1885; J2543; J7030; J7512; Q9967

== ENCOUNTER 2022-08-01 08:09 | Outpatient (CLI) | payer BC, MEDICAID, SELFPAY ==
[2022-08-01 16:56] LABS: Alanine Aminotransferase 31 U/L (6-50); Albumin Level 4.3 g/dL (3.5-5.1); Alkaline Phosphatase 64 U/L (38-126); Anion Gap 5 mmol/L (8-16); Aspartate Amino Transferase 45 U/L (17-59); Bilirubin,Total 0.5 mg/dL (0.2-1.3); Blood Urea Nitrogen 9 mg/dL (9-20); Carbon Dioxide 31 mmol/L (22-30); Chloride 106 mmol/L (98-107); Cholesterol 143 mg/dL (0-200); Estimated Glomerular Filt Rate > 60; Glucose 81 mg/dL (65-110); HDL Direct 29 mg/dL; Potassium 4.4 mmol/L (3.4-5.0); Sodium 142 mmol/L (137-145); Triglycerides 164 mg/dL (<150)
[2022-08-01 17:07] LABS: LDL Cholesterol Direct 80 mg/dL
== END 2022-08-01 08:10 | disposition home or self-care (01) ==
LOC: ANHGOSHLAB 08:10
PROVIDERS: PCP Family Medicine; Visit Provider Internal Medicine Cardiovascular Disease
DX: E78.5 Hyperlipidemia, unspecified (principal)
CPT/HCPCS: 36415; 80053; 80061

== ENCOUNTER 2022-11-08 09:57 | Outpatient (CLI) | payer BC, MEDICAID, SELFPAY | END 2022-11-08 09:58 | disposition home or self-care (01) | LOC: ANHIMG 09:59 | PROVIDERS: PCP Family Medicine; Visit Provider Family Medicine | DX: M79.674 Pain in right toe(s) (principal) | CPT/HCPCS: 73630 ==

== ENCOUNTER 2022-11-21 16:22 | Outpatient (CLI) | payer BC, MEDICAID, SELFPAY ==
[2022-11-21 16:50] LABS: Basophils Percent Auto 0.4 % (0.2-1.2); Eosinophils Absolute Auto 0.2 K/mm3 (0-0.3); Eosinophils Percent Auto 1.7 % (0-4.4); Hematocrit 44.9 % (42.0-52.0); Hemoglobin 15.3 g/dL (14.0-18.0); Immature Granulocyte Absolute 0.03 K/mm3 (0.00-0.031); Immature Granulocyte Percent A 0.3 % (0-0.5); Lymphocytes Percent Auto 32.2 % (18.3-44.2); Mean Corpuscular HGB Conc 34.1 g/dl (32-36); Mean Corpuscular Hemoglobin 30.1 pg (26-34); Mean Corpuscular Volume 88.4 fl (80-100); Mean Platelet Volume 9.6 fl (7.4-10.4); Monocytes Absolute Auto 0.6 K/mm3 (0.1-0.6); Neutrophils Absolute Auto 5.5 K/mm3 (1.3-6.7); Neutrophils Percent Auto 59.4 % (45.5-73.1); Platelet Count Result 293 k/mm3 (150-375); Red Blood Count 5.08 M/mm3 (4.6-6.20); White Blood Count 9.3 K/mm3 (4.5-10.0)
[2022-11-21 17:05] LABS: Alanine Aminotransferase 47 U/L (6-50); Albumin Level 4.8 g/dL (3.5-5.1); Alkaline Phosphatase 63 U/L (38-126); Anion Gap 11 mmol/L (8-16); Aspartate Amino Transferase 38 U/L (17-59); Bilirubin,Total 0.5 mg/dL (0.2-1.3); Blood Urea Nitrogen 14 mg/dL (9-20); CRP < 0.5 mg/dL (<1.0); Calcium 9.2 mg/dL (8.4-10.2); Carbon Dioxide 26 mmol/L (22-30); Chloride 103 mmol/L (98-107); Creatine Kinase 155 U/L (55-170); Estimated Glomerular Filt Rate > 60; Glucose 99 mg/dL (65-110); Lactate Dehydrogenase 179 U/L (120-246); Potassium 3.6 mmol/L (3.4-5.0); Sodium 140 mmol/L (137-145); Uric Acid 7.1 mg/dL (3.5-8.5)
[2022-11-21 17:12] LABS: Rheumatoid Factor < 12.0 IU/ML (<12)
[2022-11-21 17:27] LABS: Erythrocyte Sedimentation Rate 2 mm/hr (0-20)
[2022-11-24 13:55] LABS: Aldolase 6.6 U/L (<=8.1)
[2022-11-25 22:49] LABS: ANA Cascade Screen Negative (Negative)
[2022-11-27 09:45] LABS: Anti Cyclic Citrullinated Pept <16 Units (<20)
== END 2022-11-21 16:23 | disposition home or self-care (01) ==
LOC: ANHLAB 16:24
PROVIDERS: PCP Family Medicine; Visit Provider Family Medicine
DX: M25.50 Pain in unspecified joint (principal); M10.9 Gout, unspecified; M35.3 Polymyalgia rheumatica
CPT/HCPCS: 36415; 80053; 82085; 82550; 83615; 84550; 85025; 85652; 86038; 86140; 86200; 86430

== ENCOUNTER 2022-11-23 16:12 | Outpatient (CLI) | payer BC, MEDICAID, SELFPAY ==
[2022-11-23 17:45] LABS: Erythrocyte Sedimentation Rate 6 mm/hr (0-20)
[2022-11-23 18:01] LABS: CRP < 0.5 mg/dL (<1.0); Creatine Kinase 215 U/L (55-170); Uric Acid 6.5 mg/dL (3.5-8.5)
[2022-11-23 18:08] LABS: Complement C3 134 mg/dL (88-165); Rheumatoid Factor < 12.0 IU/ML (<12)
[2022-11-23 18:41] LABS: HIV 1/2 Ab P24 Ag Result Negative (Negative)
[2022-11-23 19:07] LABS: Hepatitis B Surface Antigen Negative (Negative)
[2022-11-23 19:12] LABS: Hepatitis B Core IgM Result Negative (Negative)
[2022-11-23 19:25] LABS: Hepatitis C Virus Antibody Negative (Negative)
[2022-11-27 14:12] LABS: Albumin 4.6 g/dL (3.8-4.8); Alpha 1 Globulin 0.3 g/dL (0.2-0.3); Alpha 2 Globulin 0.6 g/dL (0.5-0.9); Beta 1 Globulin 0.5 g/dL (0.4-0.6); Gamma Globulin 1.2 g/dL (0.8-1.7); Protein, Total 7.6 g/dL (6.1-8.1)
[2022-11-28 02:59] LABS: Scleroderma 70 Antibody <1.0
[2022-11-28 12:23] LABS: NIL 0.02 IU/mL; Quantiferon TB Plus, 1T NEGATIVE (NEGATIVE); TB2-NIL 0.03 IU/mL
[2022-11-28 21:35] LABS: Cyclic Citrullinated Peptide <16 Units (<20)
[2022-11-29 10:27] LABS: Histone Antibody <1.0 U (<1.0)
[2022-11-29 22:07] LABS: ANCA Screen Negative (Negative)
[2022-11-29 23:54] LABS: Aldolase 7.8 U/L (<=8.1)
[2022-12-01 05:07] LABS: Angiotensin Converting Enzyme 31.1 U/L (9-67)
[2022-12-02 16:07] LABS: TPMT Activity 15
[2022-12-04 11:36] LABS: JO-1 AB <11 SI (<11); MI-2 Alpha Ab <11 SI (<11); MI-2 Beta Ab <11 SI (<11); NXP-2 AB <11 SI (<11); TIF1 Gamma Ab <11 SI (<11)
[2022-12-08 12:36] LABS: SS-A <1.0; SS-B <1.0
[2022-12-15 14:02] LABS: Ribosomal P Antibody <1.0
== END 2022-11-23 16:13 | disposition home or self-care (01) ==
PROVIDERS: PCP Family Medicine
DX: M06.4 Inflammatory polyarthropathy (principal); Z79.899 Other long term (current) drug therapy; R53.83 Other fatigue; M25.50 Pain in unspecified joint; M79.18 Myalgia, other site; M79.641 Pain in right hand; M79.642 Pain in left hand; M79.671 Pain in right foot; M79.672 Pain in left foot
CPT/HCPCS: 36415; 82085; 82164; 82550; 82657; 84155; 84165; 84182; 84550; 85652; 86036; 86038; 86140; 86160; 86200; 86235; 86255; 86334; 86364; 86430; 86480; 86703; 86705; 86803; 87340; G0432

== ENCOUNTER 2022-12-20 07:47 | Outpatient (CLI) | payer BC, MEDICAID, SELFPAY | END 2022-12-20 07:48 | disposition home or self-care (01) | LOC: ANHAUDASC 07:48 | PROVIDERS: PCP Family Medicine; Visit Provider Family Medicine | DX: H91.91 Unspecified hearing loss, right ear (principal) | CPT/HCPCS: 92557; 92567 ==

== ENCOUNTER 2023-04-06 07:11 | Outpatient (CLI) | payer BC, MEDICAID, SELFPAY ==
[2023-04-06 07:48] LABS: Alanine Aminotransferase 32 U/L (6-50); Albumin Level 4.5 g/dL (3.5-5.1); Alkaline Phosphatase 67 U/L (38-126); Anion Gap 4 mmol/L (8-16); Aspartate Amino Transferase 29 U/L (17-59); Bilirubin,Total 0.5 mg/dL (0.2-1.3); Blood Urea Nitrogen 12 mg/dL (9-20); Calcium 9.7 mg/dL (8.4-10.2); Carbon Dioxide 32 mmol/L (22-30); Chloride 105 mmol/L (98-107); Cholesterol 183 mg/dL (0-200); Estimated Glomerular Filt Rate > 60; Glucose 106 mg/dL (65-110); HDL Direct 33 mg/dL; Sodium 141 mmol/L (137-145); Triglycerides 230 mg/dL (<150)
[2023-04-06 07:53] LABS: LDL Cholesterol Direct 99 mg/dL
[2023-04-06 07:59] LABS: Potassium 4.6 mmol/L (3.4-5.0)
== END 2023-04-06 07:12 | disposition home or self-care (01) ==
LOC: ANHLAB 07:13
PROVIDERS: PCP Family Medicine; Visit Provider Internal Medicine Cardiovascular Disease
DX: E78.5 Hyperlipidemia, unspecified (principal)
CPT/HCPCS: 36415; 80053; 80061

== ENCOUNTER 2023-11-08 14:42 | Outpatient (CLI) | payer BC, MEDICAID, SELFPAY ==
--- NOTE | ~2023-11-08 | XR_ITS ---
EXAMINATION: XR abdomen/kub 1V DATE: 11/08/2023 15:15 INDICATION: Right abdominal pain. Constipation. TECHNIQUE: A supine view of the abdomen on 2 radiographs was obtained. COMPARISON: None. FINDINGS: There are no dilated loops of bowel. There is a moderate volume of stool in the colon. IMPRESSION: 1. Normal bowel gas pattern. Reviewed, dictated and finalized at location A.
== END 2023-11-08 14:43 | disposition home or self-care (01) ==
PROVIDERS: PCP Family Medicine; Visit Provider Family Medicine
DX: R10.9 Unspecified abdominal pain (principal); K59.00 Constipation, unspecified
CPT/HCPCS: 74018

== ENCOUNTER 2023-11-08 15:25 | Outpatient (CLI) | payer BC, MEDICAID, SELFPAY ==
[2023-11-08 16:24] LABS: Basophils Percent Auto 0.4 % (0.2-1.2); Eosinophils Absolute Auto 0.1 K/mm3 (0-0.3); Eosinophils Percent Auto 1.3 % (0-4.4); Hematocrit 46.2 % (42.0-52.0); Hemoglobin 15.7 g/dL (14.0-18.0); Immature Granulocyte Absolute 0.03 K/mm3 (0.00-0.031); Immature Granulocyte Percent A 0.3 % (0-0.5); Lymphocytes Absolute Auto 4.04 K/mm3 (0.9-3.2); Lymphocytes Percent Auto 39.9 % (18.3-44.2); Mean Corpuscular Hemoglobin 29.9 pg (26-34); Mean Platelet Volume 9.4 fl (7.4-10.4); Monocytes Absolute Auto 0.6 K/mm3 (0.1-0.6); Monocytes Percent Auto 6.3 % (2.6-8.5); Neutrophils Absolute Auto 5.3 K/mm3 (1.3-6.7); Neutrophils Percent Auto 51.8 % (45.5-73.1); Platelet Count Result 350 k/mm3 (150-375); Red Blood Count 5.25 M/mm3 (4.6-6.20); Red Cell Distribution Width 12.2 % (11.5-14.5); White Blood Count 10.1 K/mm3 (4.5-10.0)
[2023-11-08 17:05] LABS: Alanine Aminotransferase 28 U/L (6-50); Albumin Level 4.7 g/dL (3.5-5.1); Alkaline Phosphatase 58 U/L (38-126); Amylase 74 U/L (30-110); Anion Gap 8 mmol/L (4-12); Aspartate Amino Transferase 24 U/L (17-59); Bilirubin,Total 0.6 mg/dL (0.2-1.3); Blood Urea Nitrogen 17 mg/dL (9-20); Calcium 9.5 mg/dL (8.4-10.2); Carbon Dioxide 27 mmol/L (22-30); Chloride 93 mmol/L (98-107); Estimated Glomerular Filt Rate > 60; Glucose 82 mg/dL (65-110); Lipase 72 U/L (23-300); Potassium 3.8 mmol/L (3.4-5.0); Sodium 128 mmol/L (137-145)
== END 2023-11-08 15:26 | disposition home or self-care (01) ==
PROVIDERS: PCP Family Medicine; Visit Provider Family Medicine
DX: R10.9 Unspecified abdominal pain (principal)
CPT/HCPCS: 36415; 80053; 82150; 83690; 85025

== ENCOUNTER 2024-04-12 08:22 | Outpatient (CLI) | payer BC, SELFPAY ==
--- OUTSIDE RECORDS SUMMARY | 2024-04-12 08:25 | XMS_ITS ---
Author Organization [facility] [employer] Address [address] [address] Care Team Providers Care Referral Coordinator Name Role Phone MasoodBetyVeronica Unavailable [phone] REASON FOR VISIT Refill Request Medications Medication SIG (Take, Route, Frequency, Duration) Notes Start Date End Date Status Lisdexamfetamine Dimesylate 50 MG 1 capsule in the morning Oral Once a day for 30 days 03/14/2024 Active Social History Sex Assigned At : Social History Observation Description Sex Assigned At Male Encounters Encounter Location Date Provider Diagnosis [facility] [employer] [place] [address] [address] [facility] [address] [address] 03/14/2024 Veronica Correia Attention-deficit hyperactivity disorder, predominantly hyperactive type F90.1 Assessments Encounter Date Diagnosis (ICD Code) Assessment Notes Treatment Notes Treatment Clinical Notes Section Notes 03/14/2024 Attention-deficit hyperactivity disorder, predominantly hyperactive type (ICD-10 - F90.1) Plan Of Treatment Medication Medication Name Sig Start Date Stop Date Notes Lisdexamfetamine Dimesylate 50 MG 1 caps ule in the morning Oral Once a day for 30 days 03/14/2024 Progress Notes * BRENDA LAMARDOB:[birth year] (48 yo M)Acc No.[id number]:03/14/2024 Patient: BRENDA REID :1975 A ge:48 Y S ex:Male Address:[address] [place], [address] * Refills Refill Lisdexamfetamine Dimesylate Capsule, 50 MG, Oral, 30 Capsule, 1 capsule in the morning, Once a day, 30 days, Refills=0 Subjective: * Chief Complaints: * R efill Request * Medical History: * Surgical History: * Hospitalization/Major Diagno stic Procedure: * Medications: Objective: * Vitals: * Physical Examination: Assessment: * Assessment: 1. A ttention-deficit hyperactivity disorder, predominantly hyperactive type - F90.1 Plan: * Treatment: * Procedure Codes: E RX CONTROLLED SUBSTANCE ERX * * Date:
--- OUTSIDE RECORDS SUMMARY | 2024-04-12 08:25 | XMS_ITS ---
Author Organization [facility] [employer] [facility] Address [facility] [facility] [address] [place] [address] Care Team Providers Care Certified Art Therapist Name Role Phone Veronica Correia Unavailable [phone] REASON FOR VISIT Generic Vyvanse Refill Medications Medication SIG (Take, Route, Frequency, Duration) Notes Start Date End Date Status Lisdexamfetamine Dimesylate 50 MG 1 capsule in the morning Oral Once a day for 30 days 04/10/2024 Active Social History Sex Assigned At : Social History Observation Description Sex Assigned At Male Encounters Encounter Location Date Provider Diagnosis [address] [address] 04/10/2024 Veronica Correia Plan Of Treatment Medication Medication Name Sig Start Date Stop Date Notes Lisdexamfetamine Dimesylate 50 MG 1 caps ule in the morning Oral Once a day for 30 days 04/10/2024 Progress Notes * BRENDA LAMARDOB:[birth year] (48 yo M)Acc No.[id number]:04/10/2024 Patient: BRENDA REID :1975 A ge:48 Y S ex:Male Address:[address] [place] [address], [place], [address] * Refills Refill Lisdexamfetamine Dimesylate Capsule, 50 MG, Oral, 30 Capsule, 1 capsule in the morning, Once a day, 30 days, Refills=0 * * Date:
--- OUTSIDE RECORDS SUMMARY | 2024-04-12 08:26 | XMS_ITS | Clinical Summary ---
Author Organization [facility] [employer] Address [address] [facility] [place] [address] Care Team Providers Care Buncher Operator Name Role Phone Katrina Guzman DO Primary Care Provider [phone] Source Comments [facility] [employer],non-owned Affiliates and Associated Physician Practices is amultiple site organization consisting of ambulatory clinics and hospital sitesin [place], [place], [place] and [place]. This disclosure is being madepursuant to the Care Everywhere program and may not contain all information available regarding this patient. Last updated 17.[facility] [employer] Allergies No known active allergies Medications * Be aware that medications may not be up to date on this document. Alwaysverify current medications with the patient. Medication Sig Dispensed Refills Start Date End Date Status busPIRone (BUSPAR) 10 MG tablet 10 mg 3 times daily 0 10/30/2017 Active clonazePAM (KLONOPIN) 0.5 MG tablet TAKE ONE TABLET 3 TIMES DAILY 1 10/26/2017 Active Aspirin 81 MG CAPS Active cephalexin (Keflex) 750 MG capsule Take 1 (one) capsule by mouth every 12 hours Active Colchicine 0.6 MG capsule Take 1 (one) capsule by mouth once daily Active Methylphenidate HCl ER, PM, (Jornay PM) 60 MG CP24 Active Livalo 1 MG tablet Take 1 (one) tablet by mouth once daily 10/04/2022 Active traZODone (Desyrel) 50 MG tablet Take 1 (one) tablet by mouth at bedtime Active lisdexamfetamine (Vyvanse) 40 MG capsule 03/21/2023 Active fish oil/omega-3 fatty acids (Promega;Cardi-[place]oorland 3) 1000 MG capsule Take 1 (one) capsule by mouth 3 times daily with meals Active Turmeric (QC Tumeric Complex) 500 MG Active Chromium 1 MG Active Probiotic Product (PROBIOTIC-10 PO) Active Active Problems No known active problems Family History Medical History Relation Name Comments Arthritis - Osteo Father COPD - Chronic Obstructive Pulmonary Disease Maternal Grandmother COPD - Chronic Obstructive Pulmonary Disease Mother Other - Autoimmune Mother common va riable immuno def Relation Name Status Comments Father Alive Maternal Grandmother Mother Alive Social History Tobacco Use Types Packs/Day Years Used Date Smoking Tobacco: Former Cigarettes Q uit: 2006 Smokeless Tobacco: Never Tobacco Cessation:Counseling Given: No Alcohol Use Standard Drinks/Week Comments No 0 (1 standard drink = 0.6 oz pur e alcohol) Sex and Gender Information Value Date Recorded Sex Assigned at Male 06/16/2021 10:05 AM CDT Gender Identity Male 06/16/2021 10:05 AM CDT Sexual Orientation Gomez 06/16/2021 10 :05 AM CDT Last Filed Vital Signs Vital Sign Reading Time Taken Comments Blood Pressure 118/80 03/23/2023 8:41 AM BEHAVIORAL HEALTH ASSOCIATE Pulse 88 03/23/2023 8:41 AM BEHAVIORAL HEALTH ASSOCIATE Temperature 36.7 C (98 F) 03/23/2023 8:41 AM BEHAVIORAL HEALTH ASSOCIATE Respiratory Rate 16 03/23/2023 8:41 AM BEHAVIORAL HEALTH ASSOCIATE Oxygen Saturation 98% 03/23/2023 8:41 AM BEHAVIORAL HEALTH ASSOCIATE Inhaled Oxygen Concentration - - Weight 111.6 kg (246 lb) 03/23/2023 8:41 AM BEHAVIORAL HEALTH ASSOCIATE Height 172.7 cm (5' 8 ) 03/23/2023 8:41 AM BEHAVIORAL HEALTH ASSOCIATE Body Mass Index 37.4 03/23/2023 8:41 AM BEHAVIORAL HEALTH ASSOCIATE Plan of Treatment Health Maintenance Due Date Last Done Comments COLOGUARD (AGES 45-75) - COL ON CA SCREENING 1977 COLON MONITORING 1977 COLONOSCOPY - COLON CA SCREENING 1977 CT COLONOGRAPHY - COLON CA SCREENING 1977 Colorectal Cancer Screening 1977 FIT - COLON CA SCREENING 1977 FLEX SIG - COLON CA SCREENING 1977 MEDICARE AWV 12 MONTHS 1977 HIV SCREENING 1992 HEPATITIS C SCREENING 07/04/1995 DTAP/TDAP/TD VACCINES (1 - Tdap) 1996 HEPATITIS B VACCINE (1 of 3 - 19+ 3-dose series) 1996 SCREENING FOR DIABETES 11/23/2022 COVID-19 VACCINE (3 - 2023-2 5 season) 2023 06/03/2020, 05/06/2020 INFLUENZA VACCINE (#1) 2023 12/03/2019 DEPRESSION SCREENING 02/20/2024 MEDICARE AWV CALENDAR YEAR 2024 ZOSTER VACCINE (1 of 2) 07/09/2027 HIB VACCINE Aged Out No longer eligi ble based on patient's age to complete this topic HPV VACCINE Aged Out No longer eligi ble based on patient's age to complete this topic MENINGOCOCCAL (Group B) VACCINE Aged Out No longer eligible b ased on patient's age to complete this topic MENINGOCOCCAL VACCINE Aged Out No cecy roberto eligible based on patient's age to complete this topic PNEUMOCOCCAL VACCINE Aged Out No long er eligible based on patient's age to complete this topic Care Teams Buncher Operator Relationship Specialty Start Date End Date Katrina Guzman DO [address] [place] [address] PCP - General Family Medicine 11/23/22
--- OUTSIDE RECORDS SUMMARY | 2024-04-12 08:26 | XMS_ITS | Clinical Summary ---
Author Organization [facility] Physician Office Building [address] [place] [address] Care Team Providers Care Bottle Machine Operator Name Role Phone Katrina Guzman Primary Care Provider + Allergies No known active allergies Medications clonazePAM (KlonoPIN) 0.5 mg tablet daily 1 8 Active traZODone (DESYREL) 50 mg tablet Take 1 tablet (50 mg total) by mouth nightly at bedtime 2 Active metoprolol XL (TOPROL-XL) 25 mg extended release tablet Take 25 mg by mouth daily 2 Active Vyvanse 30 mg capsule Take 30 mg by mouth every morning 2 Active meloxicam (MOBIC) 15 mg tablet TAKE 1 TABLET BY MOUTH DAILY NEEDED FOR JOINT PAIN 2 Active pravastatin (PRAVACHOL) 10 mg tablet Take 10 mg by mouth daily 2 Active pitavastatin calcium (LIVALO) 1 mg tablet 1 MG ORALLY DAILY Active methylphenidate HCl (Jornay PM) 60 mg capsule,del rel,ext rel sprink Take by mouth Active fenofibrate (TRIGLIDE) 160 mg tablet Take 1 tablet (160 mg total) by mouth daily 4 Active colchicine (COLCRYS) 0.6 mg capsule Take 1 capsule (0.6 mg total) by mouth daily Active clotrimazole-be tamethasone (LOTRISONE) cream APPLY TO AFFECTED AREA TOPICALLY 4 TIMES A DAY FOR 4 WEEKS 4 Active cloNIDine (CATAPRES) 0.1 mg tablet daily Active aspirin 81 mg capsule Take by mouth Active methylPREDNISol one (MEDROL DOSEPACK) 4 mg DosepackIndicat ions:Rib pain on right side,Subacute cough Take 6 tabs on day 1, reduce dose by 1 daily until prescription is complete. 1 packet 4 Active Active Problems Problem Noted Date Diagnosed Date Status post placement of implantable loop record er 11/16/2021 Overview (11/16/2021): [employer] Loop Recorder. Dx; syncope, Sinus Pause. DOI 11/09/2021-[facility]. [employer] remote monitoring. Sinus pause 11/02/2021 Syncope and collapse 11/02/2021 Sinus tachycardia 11/02/2021 ADHD 11/02/2021 [place] 06/27/2021 Assessment & Plan (06/27/2021 1:55 PM CDT): Of unclear etiology. Without evidence of hyperadrenalism, as per normal 24 hour urine metanephrine. Also no evidence of hypogonadism, as per normal testosterone levels I have requested to check 5 HIAA to rule out carcinoid syndrome. Lumbar spondylosis 01/21/2018 Osteoarthritis of spine with radiculopathy, cerv ical region 01/21/2018 Resolved Problems Problem Noted Date Diagnosed Date Resolved Date Bilateral hand numbness 04/22/201908/19 Surgical History Surgery Date Site/Laterality Comments RHINOPLASTY Medical History Medical History Date Comments Anxiety ADHD (attention deficit hyperactivity disorder) Family History Medical History Relation Name Comments Sudden Brother 1/2 brother Unclear if unde rlying heart dz COPD Father Brenda Heart disease Father Brenda COPD Mother Yazmin Heart disease Mother Yazmin No Known Problems Sister Relation Name Status Comments Brother 1/2 brother Father Brenda Mother Yazmin Sister Social History Tobacco Use Types Packs/Day Years Used Date Smoking Tobacco: Former Cigarettes Q uit: 2006 Smokeless Tobacco: Never Tobacco Cessation:Counseling Given: Not Answered Alcohol Use Standard Drinks/Week Comments No 0 (1 standard drink = 0.6 oz pur e alcohol) Personal Safety Answer Date Recorded Getting School Help Needed Not on file 05/05 Sex and Gender Information Value Date Recorded Sex Assigned at Not on file Legal Sex Male 3:20 AM 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 Gender Identity Male 04/25/2021 9:17 AM TAPE RULES 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 Sexual Orientation Gomez 04/25/2021 9: 17 AM TAPE RULES 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 Obstetrics History Last Filed Vital Signs Vital Sign Reading Time Taken Comments Blood Pressure 128/89 11/02/2023 11:03 AM CDT Pulse 98 11/02/2023 11:03 AM CDT Temperature 36.7 C (98.1 F) 11/02/2023 11:03 AM CDT Respiratory Rate 20 11/02/2023 11:03 AM CDT Oxygen Saturation 99% 11/02/2023 11:03 AM CDT Inhaled Oxygen Concentration - - Weight 107 kg (236 lb) 11/02/2023 11:03 AM CDT Height 175.3 cm (5' 9 ) 11/02/2023 11:03 AM CDT Body Mass Index 34.85 11/02/2023 11:03 AM CDT Plan of Treatment Health Maintenance Due Date Last Done Comments Colon Cancer Screening-Colonoscopy 1975 Depression Screening 1975 Hepatitis C Screening 1975 DTaP/Tdap/Td Vaccine (1 - Tdap) 1988 Hepatitis B Screening 07/09/1995 Regular Well Visit/Exam 18-64 07/09/1995 Covid-19 Vaccine (2023-2 5 season) 2023 01/18/2021, 06/03/2020, 05/06/2020 Influenza Vaccine (#1) 2023 , 12/03/2019 HPV Vaccines Aged Out No longer eligi ble based on patient's age to complete this topic Pneumococcal vaccine <65 Aged Out No longer eligible based on patient's age to complete this topic Insurance [facility] ACCESS CHOICE Member Subscriber Plan / Payer (Ef fective 2019-Present) Name:Brenda Lamar Relation to Subscriber:Spouse Name:ARNALDO DIAZ Date of :1977 (Home) Address: [address] [place] [address] Payer ID:[id number] (NAIC) Type:SKURA Address: [address] [facility] ACCESS CHOICE [facility] [place] [address] [employer] CHOICE IDPA Care Teams Bottle Machine Operator Relationship Specialty Start Date End Date Katrina Guzman DO PCP - General Family Medicine 11/02/21
--- OUTSIDE RECORDS SUMMARY | 2024-04-12 08:26 | XMS_ITS | Referral Summary ---
Author Organization [facility] Physician Office Building [address] [place] [address] Care Team Providers Care Political Aide Name Role Phone Katrina Guzman Primary Care [...] implantable loop record er 11/16/2021 Overview (11/16/2021): [employer] Loop Recorder. Dx; syncope, Sinus Pause. DOI 11/09/2021-[facility]. [employer] remote monitoring. Sinus pause 11/02/2021 Syncope and [...] Date Resolved Date Bilateral hand numbness 04/22/201908/19 Social History Tobacco Use Types Packs/Day Years [...] on file Legal Sex Male 3:20 AM NETWORK DIRECTOR Gender Identity Male 04/25/2021 9:17 AM NETWORK DIRECTOR Sexual Orientation Gomez 04/25/2021 9: 17 AM NETWORK DIRECTOR Last Filed Vital Signs Vital Sign Reading [...] 11/02/2023 11:03 AM CDT Plan of Treatment Not on file Insurance [employer] CHOICE [facility] ANTHEM ACCESS CHOICE [facility] ANTHE[employer] ACCESS CHOICE IDPA Care Teams Political Aide Relationship Specialty Start Date End Date Katrina Guzman DO PCP - General Family Medicine 11/02/21
--- OUTSIDE RECORDS SUMMARY | 2024-04-12 08:26 | XMS_ITS | Referral Summary ---
Author Organization [facility] Address [address] [facility] [place] [address] Care Team Providers Care Civil Drafting Technician Name Role Phone Katrina Guzman DO Primary Care Provider [phone] Source Comments [facility],non-owned Affiliates and Associated Physician Practices is amultiple site organization consisting of ambulatory clinics and hospital sitesin [place], [place], [place] and [place]. This disclosure is being madepursuant to the Care Everywhere program and may not contain all information available regarding this patient. Last updated 17.[facility] Allergies No known active allergies Medications * [...] capsule 03/21/2023 Active fish oil/omega-3 fatty acids ([employer]ega;Cardi-[place] 3) 1000 MG capsule Take 1 (one) capsule by mouth 3 times daily with meals Active Turmeric (QC Tumeric Complex) 500 MG Active Chromium 1 MG Active Probiotic Product (PROBIOTIC-10 PO) Active Active Problems No known active problems Social History Tobacco Use Types Packs/Day Years [...] Comments Blood Pressure 118/80 03/23/2023 8:41 AM MACHINE PULLER AND LASTER Pulse 88 03/23/2023 8:41 AM MACHINE PULLER AND LASTER Temperature 36.7 C (98 F) 03/23/2023 8:41 AM MACHINE PULLER AND LASTER Respiratory Rate 16 03/23/2023 8:41 AM MACHINE PULLER AND LASTER Oxygen Saturation 98% 03/23/2023 8:41 AM MACHINE PULLER AND LASTER Inhaled Oxygen Concentration - - Weight 111.6 kg (246 lb) 03/23/2023 8:41 AM MACHINE PULLER AND LASTER Height 172.7 cm (5' 8 ) 03/23/2023 8:41 AM MACHINE PULLER AND LASTER Body Mass Index 37.4 03/23/2023 8:41 AM MACHINE PULLER AND LASTER Plan of Treatment Not on file Care Teams Civil Drafting Technician Relationship Specialty Start Date End Date Katrina Guzman DO [address] [place] [address] PCP - General Family Medicine 11/23/22
--- OUTSIDE RECORDS SUMMARY | 2024-04-12 08:26 | XMS_ITS ---
Author Organization [facility] Address [facility] [facility] [address] [place] [address] Care Team Providers Care Program Project Manager Name Role Phone JarrettVeronica mcgill Unavailable [phone] Social History Sex Assigned At : Social History Observation Description Sex Assigned At Male Encounters Encounter Location Date Provider Diagnosis [facility] [address] [facility] [address] [place] [address] 01/16/2024 Veronica Correia Attention-deficit hyperactivity disorder, predominantly hyperactive type F90.1 Assessments Encounter Date Diagnosis (ICD Code) Assessment Notes Treatment Notes Treatment Clinical Notes Section Notes 01/16/2024 Attention-deficit hyperactivity disorder, predominantly hyperactive type (ICD-10 - F90.1) Plan Of Treatment No Information Progress Notes * BRENDA LAMARDOB:[birth year] (48 yo M)Acc No.[id number]:01/16/2024 Patient: BRENDA REID :1975 A ge:48 Y S ex:Male Address:[address] [place] [id number] Subjective: * Chief Complaints: * * Medical History: * Surgical History: * Hospitalization/Major Diagno stic Procedure: * Medications: Objective: * Vitals: * Physical Examination: Assessment: * Assessment: 1. A ttention-deficit hyperactivity disorder, predominantly hyperactive type - F90.1 (Primary)? Plan: * Treatment: * Procedure Codes: * true * Date: Generated for Printi ng/Faxing/eTransmitting on: 0 04/12/2024 08:25 AM REFRACTIVE SURGEON
--- OUTSIDE RECORDS SUMMARY | 2024-04-12 08:26 | XMS_ITS | Patient Health Summary ---
Author Organization [facility] Address [address] [facility] [place] [address] Care Team Providers Care Ball Thread Machine Tender Name Role Phone Katrina Guzman DO Primary Care Provider [phone] Note from [facility],non-owned Affiliates and Associated Physician Practices is amultiple site organization consisting of ambulatory clinics and hospital sitesin [place], [place], [place] and [place]. This disclosure is being madepursuant to the Care Everywhere program and may not contain all information available regarding this patient. Last updated 17.[facility] Allergies No known active allergies Medications * Be aware that medications may not be up to date on this document. Alwaysverify current medications with the patient. * busPIRone (BUSPAR) 10 MG tablet(Started 10/30/2017) 10 mg 3 times daily * clonazePAM (KLONOPIN) 0.5 MG tablet(Started 10/26/2017) TAKE ONE TABLET 3 TIMES DAILY 1 refill left * Aspirin 81 MG CAPS * cephalexin (Keflex) 750 MG capsule Take 1 (one) capsule by mouth every 12 hours * Colchicine 0.6 MG capsule Take 1 (one) capsule by mouth once daily * Methylphenidate HCl ER, PM, (Jornay PM) 60 MG CP24 * Livalo 1 MG tablet(Started 10/04/2022) Take 1 (one) tablet by mouth once daily * traZODone (Desyrel) 50 MG tablet Take 1 (one) tablet by mouth at bedtime * lisdexamfetamine (Vyvanse) 40 MG capsule(Started 03/21/2023) * fish oil/omega-3 fatty acids (Promega;Cardi-[place] 3) 1000 MG capsule Take 1 (one) capsule by mouth 3 times daily with meals * Turmeric (QC Tumeric Complex) 500 MG * Chromium 1 MG * Probiotic Product (PROBIOTIC-10 PO) Active Problems No known active problems Social [...] Comments Blood Pressure 118/80 03/23/2023 8:41 AM PICK REMOVER Pulse 88 03/23/2023 8:41 AM PICK REMOVER Temperature 36.7 C (98 F) 03/23/2023 8:41 AM PICK REMOVER Respiratory Rate 16 03/23/2023 8:41 AM PICK REMOVER Oxygen Saturation 98% 03/23/2023 8:41 AM PICK REMOVER Inhaled Oxygen Concentration - - Weight 111.6 kg (246 lb) 03/23/2023 8:41 AM PICK REMOVER Height 172.7 cm (5' 8 ) 03/23/2023 8:41 AM PICK REMOVER Body Mass Index 37.4 03/23/2023 8:41 AM PICK REMOVER Procedures * US EXTREMITY LEFT COMP JOINT(Performed 12/04/2022) Performed for Hand pain, left * US EXTREMITY RIGHT COMP JOINT(Performed 12/04/2022) Performed for Hand pain, right * US EXTREMITY RIGHT COMP JOINT(Performed 12/04/2022) Performed for Undifferentiated inflammatory arthritis (HCC), Bilateral foot pain * US EXTREMITY LEFT COMP JOINT(Performed 12/04/2022) Performed for Undifferentiated inflammatory arthritis (HCC), Bilateral foot pain * XR FOOT LEFT 3VW OR MORE(Performed 11/23/2022) Performed for Undifferentiated inflammatory arthritis (HCC), High risk medication use, Other fatigue, Polyarthralgia, Myalgia, multiple sites, Bilateral hand pain, Bilateral foot pain * XR HAND BILAT 2VW(Performed 11/23/2022) Performed for Undifferentiated inflammatory arthritis (HCC), High risk medication use, Other fatigue, Polyarthralgia, Myalgia, multiple sites, Bilateral hand pain, Bilateral foot pain * LAB RESULTS ORDER(Performed 11/23/2022) Results * US EXTREMITY RIGHT COMP JOINT (12/04/2022 2:33 PM CDT) Only the most recent of2 resultswithin the time period is included. Anatomical Region Laterality Modality Upper Extremity, Lower Extremity Ultrasound 12/04/2022 4:50 PM CDT Impressions 12/04/2022 5:38 PM CDT IMPRESSION: UNREMARKABLE ULTRASOUND OF THE RIGHT AND LEFT HAND. Edited by Carol Mathews on 12/04/2022 5:13 PM > Interpreting Provider: Melida Mehta MD on 12/04/2022 5:38 PM Narrative 12/04/2022 5:38 PM CDT ULTRASOUND RIGHT HAND ULTRASOUND LEFT HAND CLINICAL INDICATION: Chronic bilateral hand pain, swelling, limited range of motion. COMPARISON: Bilateral hand x-ray 11/23/2022. TECHNIQUE: Multiple longitudinal and transverse grayscale and color Doppler sonographic images of the right and left hand were obtained. FINDINGS: ULTRASOUND RIGHT HAND: No synovial thickening or hyperemia. Anatomic osseous alignment. No osseous erosions. No joint effusions. Normal tendon echotexture. No tenosynovitis. Normal ligament and joint capsule echotexture. ULTRASOUND LEFT HAND: No synovial thickening or hyperemia. Anatomic osseous alignment. No osseous erosions. No joint effusions. Normal tendon echotexture. No tenosynovitis. Normal joint capsule and ligament echotexture. Procedure Note Melida Mehta MD - 12/04/2022 ULTRASOUND RIGHT HAND ULTRASOUND LEFT HAND CLINICAL INDICATION: Chronic bilateral hand pain, swelling, limitedrange of motion. COMPARISON: Bilateral hand x-ray 11/23/2022. TECHNIQUE: Multiple longitudinal and transverse grayscale and colorDoppler sonographic images of the right and left hand were obtained. FINDINGS: ULTRASOUND RIGHT HAND: No synovial thickening or hyperemia. Anatomic osseous alignment. No osseous erosions. No joint effusions. Normal tendon echotexture. No tenosynovitis. Normal ligament and joint capsule echotexture. ULTRASOUND LEFT HAND: No synovial thickening or hyperemia. Anatomic osseous alignment. No osseous erosions. No joint effusions. Normal tendon echotexture. No tenosynovitis. Normal joint capsule and ligament echotexture. IMPRESSION: UNREMARKABLE ULTRASOUND OF THE RIGHT AND LEFT HAND. Edited by Carol Mathews on 12/04/2022 5:13 PM > Interpreting Provider: Melida Mehta MD on 12/04/2022 5:38 PM Olya Cohn MD US ORDERABLES * US EXTREMITY LEFT COMP JOINT (12/04/2022 2:33 PM CDT) Only the most recent of2 resultswithin the time period is included. Anatomical Region Laterality Modality Lower Extremity, Upper Extremity Ultrasound 12/04/2022 4:50 PM CDT Impressions 12/04/2022 5:38 PM CDT IMPRESSION: UNREMARKABLE ULTRASOUND OF THE RIGHT AND LEFT HAND. Edited by Carol Mathews on 12/04/2022 5:13 PM > Interpreting Provider: Melida Mehta MD on 12/04/2022 5:38 PM Narrative 12/04/2022 5:38 PM CDT ULTRASOUND RIGHT HAND ULTRASOUND LEFT HAND CLINICAL INDICATION: Chronic bilateral hand pain, swelling, limited range of motion. COMPARISON: Bilateral hand x-ray 11/23/2022. TECHNIQUE: Multiple longitudinal and transverse grayscale and color Doppler sonographic images of the right and left hand were obtained. FINDINGS: ULTRASOUND RIGHT HAND: No synovial thickening or hyperemia. Anatomic osseous alignment. No osseous erosions. No joint effusions. Normal tendon echotexture. No tenosynovitis. Normal ligament and joint capsule echotexture. ULTRASOUND LEFT HAND: No synovial thickening or hyperemia. Anatomic osseous alignment. No osseous erosions. No joint effusions. Normal tendon echotexture. No tenosynovitis. Normal joint capsule and ligament echotexture. Procedure Note Melida Mehta MD - 12/04/2022 ULTRASOUND RIGHT HAND ULTRASOUND LEFT HAND CLINICAL INDICATION: Chronic bilateral hand pain, swelling, limitedrange of motion. COMPARISON: Bilateral hand x-ray 11/23/2022. TECHNIQUE: Multiple longitudinal and transverse grayscale and colorDoppler sonographic images of the right and left hand were obtained. FINDINGS: ULTRASOUND RIGHT HAND: No synovial thickening or hyperemia. Anatomic osseous alignment. No osseous erosions. No joint effusions. Normal tendon echotexture. No tenosynovitis. Normal ligament and joint capsule echotexture. ULTRASOUND LEFT HAND: No synovial thickening or hyperemia. Anatomic osseous alignment. No osseous erosions. No joint effusions. Normal tendon echotexture. No tenosynovitis. Normal joint capsule and ligament echotexture. IMPRESSION: UNREMARKABLE ULTRASOUND OF THE RIGHT AND LEFT HAND. Edited by Carol Mathews on 12/04/2022 5:13 PM > Interpreting Provider: Melida Mehta MD on 12/04/2022 5:38 PM Olya Cohn MD US ORDERABLES * XR HAND BILAT 2VW (11/23/2022 3:13 PM CDT) Anatomical Region Laterality Modality Wrist / Hand, Upper Extremity Ra diographic Imaging 11/23/2022 3:45 PM CDT Impressions 11/23/2022 3:46 PM CDT IMPRESSION: Normal-appearing PA and lateral views of both the right and left hands. > Interpreting Provider: Emanuel Jo MD on 11/23/2022 3:46 PM Narrative 11/23/2022 3:46 PM CDT PROCEDURE: XR HAND BILAT 2VW DATE/TIME OF EXAM: 11/23/2022 3:13 PM CLINICAL INFORMATION: None relevant/not provided if blank. Indication: M06.4: Inflammatory polyarthropathy (CMS/HCC) Z79.899: Other [place]current[facility] drug therapy R53.83: Other fatigue M25.50: Pain in unspecified joint M79.18: Myalgia, other site M79.641: Pain in right hand M79.642: Pain in left hand M79.671: Pain in right foot M79.672: Pain in left foot Additional History: Undifferentiated inflammatory arthritis COMPARISON: None. TECHNIQUE: FINDINGS: PA and lateral views of the right and left hands were obtained and bilaterally demonstrates normal-appearing bony mineralization without evidence of fracture, dislocation, erosive changes, joint space narrowing nor widening, nor malalignment of the osseous structures. Joint spaces generally appear relatively intact. Procedure Note Emanuel Jo MD - 11/23/2022 PROCEDURE: XR HAND BILAT 2VW DATE/TIME OF EXAM: 11/23/2022 3:13 PM CLINICAL INFORMATION: None relevant/not provided if blank. Indication: M06.4: Inflammatory polyarthropathy (CMS/HCC) Z79.899: Other [place]current[facility] drug therapy R53.83: Other fatigue M25.50: Pain in unspecified joint M79.18: Myalgia, other site M79.641: Pain in right hand M79.642: Pain in left hand M79.671: Pain in right foot M79.672: Pain in left foot Additional History: Undifferentiated inflammatory arthritis COMPARISON: None. TECHNIQUE: FINDINGS: PA and lateral views of the right and left hands were obtained and bilaterally demonstrates normal-appearing bony mineralizationwithout evidence of fracture, dislocation, erosive changes, joint spacenarrowing nor widening, nor malalignment of the osseous structures. Joint spaces generally appear relatively intact. IMPRESSION: Normal-appearing PA and lateral views of both the right and left hands. > Interpreting Provider: Emanuel Jo MD on 11/23/2022 3:46 PM Olya Cohn MD DIAGNOSTIC IMAGING O RDERABLES * XR FOOT LEFT 3VW OR MORE (11/23/2022 3:13 PM CDT) Anatomical Region Laterality Modality Ankle / Foot Radiographic Cheli ging 11/23/2022 3:41 PM CDT Impressions 11/23/2022 3:43 PM CDT IMPRESSION: Early arthritic changes in relationship to the posterior calcaneus as described. Otherwise normal appearing examination. > Interpreting Provider: Emanuel Jo MD on 11/23/2022 3:43 PM Narrative 11/23/2022 3:43 PM CDT PROCEDURE: XR FOOT LEFT 3VW OR MORE DATE/TIME OF EXAM: 11/23/2022 3:13 PM CLINICAL INFORMATION: None relevant/not provided if blank. 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 COMPARISON: None. FINDINGS: AP, internal rotation, and lateral views of the left foot were obtained and shows no evidence of fracture, dislocation, erosive changes, bony demineralization or bony destructive process. Tiny soft tissue calcifications and minimal spurring seen in relationship to the Achilles tendon insertion site of the posterior calcaneus. Procedure Note Emanuel Jo MD - 11/23/2022 PROCEDURE: XR FOOT LEFT 3VW OR MORE DATE/TIME OF EXAM: 11/23/2022 3:13 PM CLINICAL INFORMATION: None relevant/not provided if blank. Indication: M06.4: Inflammatory polyarthropathy (CMS/HCC) Z79.899: [facility] [place] drug therapy R53.83: Other fatigue M25.50: Pain in unspecified joint M79.18: Myalgia, other site M79.641: Pain in right hand M79.642: Pain in left hand M79.671: Pain in right foot M79.672: Pain in left foot Additional History: Undifferentiated inflammatory arthritis withmyalgias. COMPARISON: None. FINDINGS: AP, internal rotation, and lateral views of the left foot were obtained and shows no evidence of fracture, dislocation, erosivechanges, bony demineralization or bony destructive process. Tiny soft tissue calcifications and minimal spurring seen in relationship to the Achilles tendon insertion site of the posterior calcaneus. IMPRESSION: Early arthritic changes in relationship to the posterior calcaneus as described. Otherwise normal appearing examination. > Interpreting Provider: Emanuel Jo MD on 11/23/2022 3:43 PM Olya Cohn MD DIAGNOSTIC IMAGING O RDERABLES * LAB RESULTS ORDER (11/23/2022) Scanned Document LAB - THERAPEUTIC DR ZACARIAS MONITORING ORDERABLES Care Teams Ball Thread Machine Tender Relationship Specialty Start Date End Date Katrina Guzman DO [address] [facility] [address] [place] [address] PCP - General Family Medicine 11/23/22
--- OUTSIDE RECORDS SUMMARY | 2024-04-12 08:26 | XMS_ITS | Patient Health Record ---
Author Organization [facility] Address [address] [place] [address] Care Team Providers Care Pastry Decorator Name Role Phone Marimar Lr Primary Care Provider Reason For Referral No Information Medications Medication SIG (Take, Route, Frequency, Duration) Notes Start Date End Date Status Adderall XR 30 MG 1 capsule in the mor mahesh Orally Once a day Not-Taking Ibuprofen 600 MG 1 tablet with food o r milk as needed Orally Three times a day for 14 days 12/30/2019 Active cloNIDine HCl 0.1 MG 1 tablet Orally Onc e a day for 30 day(s) Active BuSpar 15 MG 1 tablet Orally Thre e times a day Active clonazePAM 0.5 MG 1 tablet Orally thre e times daily Active Vyvanse 30 MG 1 capsule in the mor mahesh Orally Once a day Active Immunizations Vaccine Route Administration Date Status Comme nts FLU VAC NO PRSV 4VAL 6 mo+ IM Intramuscular 12/03/2019 Administered Consent signed by patient. Patient tolerated well. VIS date 10/03/18 COVID-19 Moderna 2nd IM Intramuscular 06/03/2020 Administered COVID-19 Moderna 1ST IM Intramuscular 05/06/2020 Administered Social History Tobacco Use: Social History Observation Description Date Details (start date - stop date) Former Smoker NA - NA Sex Assigned At : Social History Observation Description Sex Assigned At Male Dont use, Tobacco Use/Smoking Question Answer Notes Are you a former smoker How long has it been since you last smoked? 1-5 years Alcohol Screen (Audit-C) Question Answer Notes Did you have a drink containing alcohol in the p ast year? Yes Problems Problem Type SNOMED Code ICD Code Onset Dates Problem Status W/U Status Risk Notes Problem 38507996 Vitamin D deficiency (E55.9) Active confirmed Problem 70172795 Degenerative dis c disease, lumbar (M51.36) Active confirmed Plan Of Treatment No Information Insurance Providers Payer Name Payer Address Payer Phone Subscriber Number Group Number Insured Name Patient Relationship to Insured Coverage Start Date Coverage End Date [facility] Attn Claims Department [address] [place] [address] [phone] [id number] Chivo Cosby Self - patient is the insured 0 [facility] Attn Claims Department [address] [place] [address] [phone] [id number] Chivo Cosby Self - patient is the insured 1 Medical (General) History Medical History History ICD Code ADHD Anxiety Degenerative disc disease Spinal Stenosis Vitamin D Deficiency Surgical History Surgery Date(Month/Year)
[2024-04-12 09:05] LABS: Alanine Aminotransferase 29 U/L (6-50); Albumin Level 4.1 g/dL (3.5-5.1); Alkaline Phosphatase 58 U/L (38-126); Anion Gap 6 mmol/L (4-12); Aspartate Amino Transferase 33 U/L (17-59); Bilirubin,Total 0.6 mg/dL (0.2-1.3); Blood Urea Nitrogen 12 mg/dL (9-20); Calcium 9.3 mg/dL (8.4-10.2); Carbon Dioxide 28 mmol/L (22-30); Chloride 108 mmol/L (98-107); Cholesterol 117 mg/dL (0-200); Estimated Glomerular Filt Rate > 60; Glucose 94 mg/dL (65-110); HDL Direct 40 mg/dL; Sodium 142 mmol/L (137-145); Triglycerides 73 mg/dL (<150)
[2024-04-12 09:15] LABS: LDL Cholesterol Direct 53 mg/dL
== END 2024-04-12 08:23 | disposition home or self-care (01) ==
LOC: ANHLAB 08:23
PROVIDERS: PCP Family Medicine; Visit Provider Internal Medicine Cardiovascular Disease
DX: E78.5 Hyperlipidemia, unspecified (principal)
CPT/HCPCS: 36415; 80053; 80061

== ENCOUNTER 2024-10-25 09:46 | Emergency (ER) | payer BC, SELFPAY ==
--- NOTE | ~2024-10-25 | XR_ITS ---
EXAMINATION: XR knee RT min 4V DATE: 10/25/2024 10:49 INDICATION: Nontraumatic swelling at the posterior medial right knee TECHNIQUE: Anteroposterior, 2 oblique and crosstable lateral views of the right knee were obtained COMPARISON: 11/13/2015 FINDINGS: Alignment is normal. No fracture. Joint spaces remain normal. No joint effusion/layering lipohemarthrosis. Soft tissues are unremarkable. IMPRESSION: 1. Normal right knee radiographs. Reviewed, dictated and finalized at location A.
[2024-10-25 09:56] VITALS: BP 121/80; PULSE 81; RESP 20; TEMP 36.2; O2SAT 100
--- NOTE | 2024-10-25 10:31 | ED.GENADULT ---
HPI - General Adult General Chief complaint: Skin/Abscess/Foreign Body Stated complaint: KNOT ON R LEG Time Seen by Provider: 10/25/24 10:32 Source: patient Mode of arrival: ambulatory Limitations: no limitations History of Present Illness HPI narrative: 49-year-old male presented for c/o of a 'walnut sized bulge' to the back of the right knee. First noticed yesterday. Pt states he has minimal pain, feels like pressure when walking. Endorsees normal range of motion. Denies redness, swelling, numbness, tingling or weakness. Denies known injury. Says he weight lifts, 450 lbs lifts, also started to do heavy squats about 5 days ago. Took Tylenol this morning. Related Data Home Medications ?Medication ?Instructions ?Recorded ?Confirmed ?Last Taken ?Type trazodone 50 mg tablet 50 mg PO QHS 06/08/22 10/15/24 06/08/22 History aspirin 81 mg chewable tablet 81 mg PO DAILY 07/03/22 10/15/24 Unknown History lisdexamfetamine 60 mg capsule mg 10/25/24 Unknown History trazodone 100 mg tablet mg 10/25/24 Unknown History Allergies Allergy/AdvReac Type Severity Reaction Status Date / Time No Known Allergies Allergy Verified 10/25/24 09:55 Review of Systems Review of Systems: CONSTITUTIONAL: Denies body aches, fever, chills EYES: Denies visual changes ENT: Denies rhinorrhea, congestion CARDIOVASCULAR: Denies chest pain, palpitations, or edema. RESPIRATORY: Denies cough or dyspnea. SKIN: Denies rash, itching, or wounds. MUSCULOSKELETAL: reports right knee bulging NEUROLOGIC: Denies headache, numbness, tingling, or weakness. All systems reviewed & are unremarkable except as noted in HPI and below PMFSH Past Medical History Medical History Anxiety Arthritis Attention deficit hyperactivity disorder Bulging disc Degenerative disc disease Genital warts due to HPV (human papillomavirus) Gout Headache Hyperlipidemia IBS (irritable bowel syndrome) Migraine METZ (nonalcoholic steatohepatitis) Obesity Obstructive sleep apnea on CPAP Polysomnogram 04/2021 patient is treated with auto PAP 5-15 cm of water Right rotator cuff tendonitis Rotator cuff tear, right Infraspinatus Ulcer Surgical History Surgical History H/O foot surgery H/O nasal polypectomy History of rhinoplasty Family History Family History Father Alcoholism Hypertension Depression Heart disease Malignant neoplasm of prostate Atrial fibrillation Mother HPV (human papilloma virus) infection Depression Thyroid disease Osteoarthritis Sibling Heart disease Autoimmune disease Daughter Depression Grandparent Alcoholism Cancer Depression Malignant neoplasm of prostate Social History Social History Social History: Code status: Full code Surrogate decision maker: Smoking packs per day: 2 Smoking cigarettes per day: 40.0 Years smoked: 10 Smoking pack-years: 20.00 Smoking status: Former smoker Tobacco type: cigarettes Alcohol intake: current Drinks per week: 1 Alcohol use details: OCCASIONALLY Substance use: never Do You Feel Safe in your Home?: Yes Lack of Transportation: No Lack of Food: Never True Current Housing: I Have Housing Concerned About Future Housing: No Difficulty Paying Gas/Electric Bills: No Difficulty Paying for Meds: No Currently Unemployed: No Education: High School Diploma/GED Difficulty w/ Childcare or Family Care: No Living arrangements: with family Additional living arrangements comments: The patient lives with his of 20 years and his 7 children 6 of which are adopted. His children range in age from 22 years old to 11 years old. Additional occupation/education comments: [employer] Sexual Orientation (if Verbalized by the Patient): Lesbian, Gomez, or Homosexual Spiritual care concerns: No Comments At time of signature, I have reviewed and agree with nursing past medical, surgical, social and family history unless otherwise noted. Please see nursing chart for further information. There is no relevant family history pertinent to the presenting complaint Exam Narrative: GENERAL: Well-appearing, well-nourished, and in no acute distress. CHEST: Speaks in full sentences. No respiratory distress. HEART: Regular rate and rhythm. Normal and equal peripheral pulses. EXTREMITIES: Right leg has normal strength and sensation, normal range of motion at knee. Posterior medial right knee with approx 3cm area of swelling, firm, no erythema, minimally tender. pulse palpable and equal bilaterally, skin warm, dry, pink. Capillary refill less than 3 seconds. Gait steady. SKIN: Warm, dry, no rash. NEURO: Alert and oriented x3. PSYCH: Normal mood and affect Course Course Emergency Course: Patient is aware of diagnosis, understands and agrees to treatment plan. Anticipatory guidance given. Patient agrees to follow-up as directed and is aware of reasons to seek care at the emergency department. Portions of this record may have been created with voice recognition software Level of Care: Express Care Visit Vital Signs Vital signs: Vital Signs Temperature 97.1 F L 10/25/24 09:56 Pulse Rate 81 10/25/24 09:56 Respiratory Rate 20 10/25/24 09:56 Blood Pressure 121/80 10/25/24 09:56 Pulse Oximetry 100 10/25/24 09:56 Oxygen Delivery Room Air 10/25/24 09:56 Temperature 97.1 F L 10/25/24 09:56 Pulse Rate 81 10/25/24 09:56 Respiratory Rate 20 10/25/24 09:56 Blood Pressure 121/80 10/25/24 09:56 Pulse Oximetry 100 10/25/24 09:56 Oxygen Delivery Room Air 10/25/24 09:56 Reviewed Medical Decision Making MDM Narrative Medical decision making narrative: Discussed physical exam findings and xray. Advised supportive measures and signs/symptoms to go to the ER. Pt is appropriate for outpt treatment and f/u. Differential Diagnosis Differential Diagnosis: osteoarthritis, patella dislocation, patellar tendonitis, tendon rupture, gout, bakers cyst, septic bursitis, dvt, tibial plateau fracture, ligament injury Vital Signs Vital Signs: Vital Signs Temperature 97.1 F L 10/25/24 09:56 Pulse Rate 81 10/25/24 09:56 Respiratory Rate 20 10/25/24 09:56 Blood Pressure 121/80 10/25/24 09:56 Pulse Oximetry 100 10/25/24 09:56 Oxygen Delivery Room Air 10/25/24 09:56 Temperature 97.1 F L 10/25/24 09:56 Pulse Rate 81 10/25/24 09:56 Respiratory Rate 20 10/25/24 09:56 Blood Pressure 121/80 10/25/24 09:56 Pulse Oximetry 100 10/25/24 09:56 Oxygen Delivery Room Air 10/25/24 09:56 Imaging Data Radiologist's impression: Patient: Chivo Cosby Hui OMER : 1975 MR#: [id number] Age: 49 Acct:[id number] Loc: [facility] ADM Date: 10/25/24Attending Dr: Ordering Physician: Erlinda Vickers APRN Date of Service: 10/25/24 Procedure(s): XR knee RT min 4V Accession Number(s): [id number] cc: Katrina Guzman DO; Erlinda Vickers APRN~ EXAMINATION: XR knee RT min 4V DATE: 10/25/2024 10:49 INDICATION: Nontraumatic swelling at the posterior medial right knee TECHNIQUE: Anteroposterior, 2 oblique and crosstable lateral views of the right knee were obtained COMPARISON: 11/13/2015 FINDINGS: Alignment is normal. No fracture. Joint spaces remain normal. No joint effusion/layering lipohemarthrosis. Soft tissues are unremarkable. IMPRESSION: 1. Normal right knee radiographs. Discharge Plan Discharge Clinical Impression: Knee swelling Patient Disposition: Home Condition: Stable Instructions: Antibiotic Form, Peng Cyst (ED) Additional Instructions: Rest elevate the leg; bear weight as tolerated Apply ice 15-20 minute intervals several times a day Keep it wrapped with GROVER or use a soft knee splint Motrin 800mg every 8 hours, alternate with Tylenol 1000mg every 8 hours as needed Follow up with your primary care provider and application specialist Go to the ER for worsening symptoms or concerns Patient Language: Georgian Prescriptions: New ibuprofen 800 mg tablet 800 mg PO TID PRN (Reason: pain) Qty: 15 0RF No Action trazodone 100 mg tablet lisdexamfetamine 60 mg capsule trazodone 50 mg tablet 50 mg PO QHS aspirin 81 mg tablet,chewable 81 mg PO DAILY pitavastatin calcium 1 mg tablet See Rx Instructions .ROUTE .COMPLEX Qty: 90 2RF Dose Instruction: TAKE 1 TABLET BY MOUTH EVERY DAY Rx Instructions: TAKE 1 TABLET BY MOUTH EVERY DAY Follow-up/Referrals: Katrina Guzman DO [Primary Care Provider, Family Practice] Shreyas Lopez MD [Physician, Orthopedics] Time of Disposition: 11:42
== END 2024-10-25 11:53 | disposition home or self-care (01) ==
PROVIDERS: Emergency Provider Nurse Practitioner Family; PCP Family Medicine
DX: M25.461 Effusion, right knee (principal); Z87.891 Personal history of nicotine dependence; M19.90 Unspecified osteoarthritis, unspecified site; M10.9 Gout, unspecified; E78.5 Hyperlipidemia, unspecified; K75.81 Nonalcoholic steatohepatitis (NASH); E66.9 Obesity, unspecified; Z68.25 Body mass index [BMI] 25.0-25.9, adult; G47.33 Obstructive sleep apnea (adult) (pediatric); F90.9 Attention-deficit hyperactivity disorder, unspecified type; Z79.82 Long term (current) use of aspirin
CPT/HCPCS: 73564; 99213; G0463

== ENCOUNTER 2024-12-06 07:38 | Outpatient (CLI) | payer BC, MEDICAID, SELFPAY ==
--- NOTE | ~2024-12-06 | MR_ITS ---
EXAMINATION: MR knee RT wo con DATE: 12/06/2024 08:50 INDICATION: Right knee pain and swelling. TECHNIQUE: Magnetic resonance imaging (MRI) of the right knee was performed without intravenous contrast. Sequences included axial PD-weighted FS FSE, coronal PD-weighted FSE and PD-weighted FS FSE, sagittal PD-weighted FSE, and sagittal T2-weighted FS FSE. COMPARISON: Right knee radiographs 10/25/24 FINDINGS: Medial compartment: Medial meniscus is normal. Medial compartment cartilage is normal. Lateral compartment: Increased signal in lateral meniscus does not definitely extend to an articular surface to indicate a tear. Lateral compartment cartilage is normal. Patellofemoral compartment: Patellar cartilage is normal. Trochlear cartilage is normal. Ligaments and tendons: The anterior and posterior cruciate ligaments are normal. Medial collateral ligament is normal. There are changes of prior sprain of lateral collateral ligament characterized by thickening and increased signal intensity proximally. There is mild patellar tendinopathy. Fluid: There is a small knee joint effusion. There is a moderate-sized Peng's cyst. There is mild prepatellar and superficial infrapatellar bursitis. IMPRESSION: 1. Small knee joint effusion. 2. Moderate-sized Peng's cyst. Reviewed, dictated and finalized at location E.
== END 2024-12-06 07:39 | disposition home or self-care (01) ==
PROVIDERS: PCP Family Medicine; Visit Provider Family Medicine
DX: M25.461 Effusion, right knee (principal); M71.21 Synovial cyst of popliteal space [Baker], right knee
CPT/HCPCS: 73721

== ENCOUNTER 2025-01-27 12:57 | Emergency (ER) | payer BC, MEDICAID, SELFPAY ==
--- NOTE | ~2025-01-27 | XR_ITS ---
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 Findings: No acute fracture or malalignment. No significant degenerative changes. Soft tissues unremarkable. Impression: No acute fracture or malalignment. Reviewed, dictated and finalized at location P. RSITY SPECIALIST Impression: No acute fracture or malalignment.
--- NOTE | 2025-01-27 12:58 | ED_ITS ---
HPI - Extremity Injury (Lower) General Chief Complaint: Extremity Problem,Nontraumatic Stated Complaint: KNOT ON THE SIDE OF R FOOT Time Seen by Provider: 01/27/25 13:06 Source: patient, RN notes reviewed and old records reviewed Mode of arrival: ambulatory Limitations: no limitations History of Present Illness HPI Narrative: 49-year-old male presents to the [facility] with swelling to the distal lateral right foot. States that he noticed it yesterday. Tenderness at the distal 5th metatarsal, mild inflammation without erythema. Related Data Home Medications ?Medication ?Instructions ?Recorded ?Confirmed ?Last Taken ?Type aspirin 81 mg chewable tablet 81 mg PO DAILY 07/03/22 01/21/25 Unknown History lisdexamfetamine 60 mg capsule mg 10/25/24 01/21/25 Un known History trazodone 100 mg tablet mg PO 12/18/24 01/21/25 Unkn own History Allergies Allergy/AdvReac Type Severity Reaction Status Date / Time No Known Allergies Allergy Verified 01/27/25 13:13 Review of Systems 2 Review of Systems: All systems reviewed & are unremarkable except as noted in HPI and below Constitutional: Constitutional: Reports no additional constitutional complaints Cardiovascular: Cardiovascular: Reports no additional cardiovascular complaints, Denies chest pain and Denies dyspnea Respiratory: Respiratory: Reports no additional respiratory complaints, Denies chest congestion, Denies cough and Denies dyspnea Musculoskeletal: Musculoskeletal: Reports as per HPI Integumentary/Breasts: Skin/Breast: Reports system reviewed and no additional complaints, except as docu PMFSH Past Medical History Medical History Hyperlipidemia Obesity Obstructive sleep apnea on CPAP Polysomnogram 04/2021 patient is treated with auto PAP 5-15 cm of water Attention deficit hyperactivity disorder Right rotator cuff tendonitis Rotator cuff tear, right Infraspinatus Gout Genital warts due to HPV (human papillomavirus) Bulging disc Degenerative disc disease Migraine Headache Arthritis Anxiety METZ (nonalcoholic steatohepatitis) IBS (irritable bowel syndrome) Ulcer Surgical History Surgical History H/O nasal polypectomy History of rhinoplasty H/O foot surgery Family History Family History Father Alcoholism Hypertension Depression Heart disease Malignant neoplasm of prostate Atrial fibrillation Mother HPV (human papilloma virus) infection Depression Thyroid disease Osteoarthritis Sibling Heart disease Autoimmune disease Daughter Depression Grandparent Alcoholism Cancer Depression Malignant neoplasm of prostate Social History Social History Social History: Code status: Full code Surrogate decision maker: Smoking packs per day: 2 Smoking cigarettes per day: 40.0 Years smoked: 10 Smoking pack-years: 20.00 Smoking status: Former smoker Tobacco type: cigarettes Alcohol intake: current Drinks per week: 1 Alcohol use details: OCCASIONALLY Substance use: never Lack of Transportation: No Lack of Food: Never True Current Housing: I Have Housing Concerned About Future Housing: No Difficulty Paying Gas/Electric Bills: No Difficulty Paying for Meds: No Currently Unemployed: No Education: High School Diploma/GED Difficulty w/ Childcare or Family Care: No Living arrangements: with family Additional living arrangements comments: The patient lives with his of 20 years and his 7 children 6 of which are adopted. His children range in age from 22 years old to 11 years old. 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 There is no relevant family history pertinent to the patient complaint. Exam 2 Const: General: cooperative, healthy appearing, comfortable, no acute distress, well developed, alert and well nourished Nutritional Appearance: w ell nourished Orientation/consciousness: patient oriented x3 Limitations: no limitations HENMT: Head: normal to inspection Eyes: General: appearance normal, both eyes and all related structures A lignment and Position: alignment normal Neck: Neck: normal visual inspection, full ROM, no lymphadenopathy and no meningeal signs Chest: Chest palpation & inspection: normal inspection of the chest Resp: Effort & Inspection: normal respiratory effort and able to speak in complete sentences Cardio: Rate: regular rate Skin: General skin exam: normal color and no rashes or lesions noted Neuro: General: patient oriented x3, gait normal, moves all extremities and no meningeal signs Cognition (Neuro): normal cognition Speech: normal speech Gait exam (Neuro): Normal gait present Extrem: General: normal to inspection, full ROM, capillary refill normal and normal gait Right lower extremity: foot Details: normal capillary refill, tenderness Location: of another digit Location: the 5th digit and of the lateral foot Location: distally and vascular exam Details: dorsalis pedis pulse present and normal capillary refill; no ecchymosis, no foreign bodies and no puncture wound Ankle/foot/toe images: 1. Dorsal and plantar aspect tenderness, swelling noted. Psych: Appearance: grossly normal and well kempt Mental Status: mental status grossly normal Speech and movement: Normal speech and movement present and Clear speech present Affect: normal affect Attitude: cooperative Course Course Level of Care: Express Care Visit Vital Signs Vital signs: Vital Signs Temperature 96.8 F L 01/27/25 13:04 Pulse Rate 56 L 01/27/25 13:04 Respiratory Rate 16 01/27/25 13:04 Blood Pressure 114/75 01/27/25 13:04 Pulse Oximetry 100 01/27/25 13:04 Temperature 96.8 F L 01/27/25 13:04 Pulse Rate 56 L 01/27/25 13:04 Respiratory Rate 16 01/27/25 13:04 Blood Pressure 114/75 01/27/25 13:04 Pulse Oximetry 100 01/27/25 13:04 reviewed MDM MDM Narrative Medical decision making narrative: Patient sitting comfortably in exam room. Patient is nontoxic, vitals stable. Patient presents with right foot pain, x-ray negative. Most likely inflammation arthritic changes. Patient referred to Podiatry. Patient appropriate for outpatient treatment with close follow-up Discharge instructions reviewed with patient, as well as provided in writing per nursing staff. The instructions also include specific and strict return/GO TO THE ER as well as f/u information. All questions have been answered, and the patient deny any further questions with discharge and discharge plan. Some parts of this dictation were generated by voice recognition software and may contain typographical and/or grammatical inaccuracies. Differential Diagnosis Differential Diagnosis: Differential diagnostic considerations for lower extremity injury include ankle sprain/strain, puncture wound of foot, fracture of toe, fracture of ankle, arthritic changes Medical Records I have reviewed the following patient records and this information was taken into consideration when formulating the assessment and plan.: previous ER visits and previous clinic visits Imaging Data Radiologist's impression: ITS Impressions Foot X-Ray 01/27/25 13:25 Impression: No acute fracture or malalignment. 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 Findings: No acute fracture or malalignment. No significant degenerative changes. Soft tissues unremarkable. Impression: No acute fracture or malalignment. Discharge Plan Discharge Clinical Impression: Inflammation of metatarsophalangeal joint Acute foot pain Qualifiers: Laterality: right Qualified Code(s): M79.671 - Pain in right foot Patient Disposition: Home Condition: Stable Instructions: Arthralgia (ED), Metatarsalgia (DC) Additional Instructions: Your Xray did not show a fracture. Wear good supportive shoes at all times. Ice should be applied to help reduce swelling. It can be used for 20 to 30 minutes, every 2-3 hours while awake. Do not apply ice directly to your skin. You can alternate ibuprofen 600mg and Tylenol 650mg every 4 hours as needed for pain Please schedule a follow-up visit with your personal physician for further evaluation and treatment within 2 weeks especially if symptoms persist. For new or worsening symptoms go directly to the emergency room Patient Language: Azeri Prescriptions: No Action lisdexamfetamine 60 mg capsule trazodone 100 mg tablet PO aspirin 81 mg tablet,chewable 81 mg PO DAILY pitavastatin calcium 1 mg tablet See Rx Instructions .ROUTE .COMPLEX Qty: 90 2RF Dose Instruction: TAKE 1 TABLET BY MOUTH EVERY DAY Rx Instructions: TAKE 1 TABLET BY MOUTH EVERY DAY Follow-up/Referrals: Denis Ayala Jr., DPM [Physician, Podiatry] Katrina Guzman DO [Primary Care Provider, Family Practice] - 1 Week Clinical Impression: Acute foot pain Andrea Peace DPM [Physician, Podiatry] Stand Alone Forms: Work/School Release IP Time of Disposition: 13:33
[2025-01-27 13:04] VITALS: BP 114/75; PULSE 56; RESP 16; TEMP 36; O2SAT 100
== END 2025-01-27 13:38 | disposition home or self-care (01) ==
PROVIDERS: Emergency Provider Nurse Practitioner; PCP Family Medicine
DX: M19.071 Primary osteoarthritis, right ankle and foot (principal); M79.671 Pain in right foot; E78.5 Hyperlipidemia, unspecified; M10.9 Gout, unspecified; K75.81 Nonalcoholic steatohepatitis (NASH); G47.33 Obstructive sleep apnea (adult) (pediatric); F90.9 Attention-deficit hyperactivity disorder, unspecified type; E66.9 Obesity, unspecified; Z68.24 Body mass index [BMI] 24.0-24.9, adult; Z87.891 Personal history of nicotine dependence; Z79.82 Long term (current) use of aspirin
CPT/HCPCS: 73630; 99213; G0463

== ENCOUNTER 2025-01-28 09:00 | Outpatient (CLI) | payer BC, MEDICAID, SELFPAY ==
[2025-01-28 09:56] LABS: Hemoglobin A1C 5.0 % (<5.7)
[2025-01-28 09:58] LABS: Alanine Aminotransferase 69 U/L (6-50); Albumin Level 4.1 g/dL (3.5-5.1); Alkaline Phosphatase 60 U/L (38-126); Anion Gap 3 mmol/L (4-12); Aspartate Amino Transferase 69 U/L (17-59); Bilirubin,Total 0.5 mg/dL (0.2-1.3); Blood Urea Nitrogen 31 mg/dL (9-20); Calcium 9.4 mg/dL (8.4-10.2); Carbon Dioxide 25 mmol/L (22-30); Chloride 108 mmol/L (98-107); Cholesterol 127 mg/dL (0-200); Estimated Glomerular Filt Rate > 60; Glucose 98 mg/dL (65-110); HDL Direct 58 mg/dL; Hematocrit 37.4 % (42.0-52.0); Hemoglobin 12.6 g/dL (14.0-18.0); Immature Granulocyte Percent A 0.3 % (0-0.5); Lymphocytes Absolute Auto 1.93 K/mm3 (0.9-3.2); Mean Corpuscular HGB Conc 33.7 g/dl (32-36); Mean Corpuscular Hemoglobin 30.5 pg (26-34); Mean Corpuscular Volume 90.6 fl (80-100); Nucleated Red Blood Cells Absolute Auto 0.000 K/mm3 (0.0-0.012); Nucleated Red Blood Cells Perc 0.0 % (0.0-0.2); Platelet Count Result 269 k/mm3 (150-375); Potassium 4.1 mmol/L (3.4-5.0); Red Blood Count 4.13 M/mm3 (4.6-6.20); Sodium 136 mmol/L (137-145); Total Protein 6.9 g/dL (6.3-8.2); Triglycerides 49 mg/dL (<150); White Blood Count 6.6 K/mm3 (4.5-10.0)
[2025-01-28 10:15] LABS: Free T4 Free Thyroxine 0.91 ng/dL (0.78-2.19)
[2025-01-28 10:33] LABS: Thyroid Stimulating Hormone 1.840 uIU/mL (0.465-4.680)
[2025-01-29 07:09] LABS: FSH 7.4 mIU/mL (1.5-12.4); LH 1.8 mIU/mL (1.7-8.6)
[2025-01-31 13:08] LABS: Free Testosterone (Direct) 1.7 pg/mL (6.8-21.5)
== END 2025-01-28 09:01 | disposition home or self-care (01) ==
PROVIDERS: PCP Family Medicine; Visit Provider Family Medicine
DX: E78.5 Hyperlipidemia, unspecified (principal); R53.83 Other fatigue; R73.9 Hyperglycemia, unspecified; E55.9 Vitamin D deficiency, unspecified
CPT/HCPCS: 36415; 80053; 80061; 82306; 83001; 83002; 83036; 84402; 84403; 84439; 84443; 85025

== ENCOUNTER 2025-02-11 08:02 | Outpatient (CLI) | payer BC, MEDICAID, SELFPAY ==
--- OUTSIDE RECORDS SUMMARY | 2025-02-11 08:07 | XMS_ITS | Clinical Summary ---
Author Organization [facility] [address] [place] [id number] Care Team Providers Care Real Estate Coordinator Name Role Phone Katrina Guzman Primary Care [...] implantable loop record er 11/16/2021 Overview (11/16/2021): NeocoretechroniEDAN Loop Recorder. Dx; syncope, Sinus Pause. DOI 11/09/2021-[facility]. Neocoretechronik remote monitoring. 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 Gender Identity Male 04/25/2021 9:17 AM PUZZLE ASSEMBLER Sexual Orientation Gomez 04/25/2021 9: 17 AM PUZZLE ASSEMBLER Last Filed Vital Signs Vital Sign Reading [...] 11:03 AM CDT Height 175.3 cm (5' 9) 11/02/2023 11:03 AM CDT Body Mass Index 34.85 11/02/2023 11:03 AM CDT Plan of Treatment Health Maintenance Due Date Last Done Comments Colon Cancer Screening-Colonoscopy 1975 Depression Screening 1975 Hepatitis C Screening 1975 DTaP/Tdap/Td Vaccine (1 - Tdap) 1988 Hepatitis B Screening 07/09/1995 Regular Well Visit/Exam 18-64 07/09/1995 Covid-19 Vaccine (2024-2 6 season) 2024 01/18/2021, 06/03/2020, 05/06/2020 Influenza Vaccine (#1) 2024 , 12/03/2019 Pneumococcal vaccine <65 Aged Out No longer eligible based on patient's age to complete this topic Insurance [employer] CHO[employer] Member Subscriber Plan / Payer (Ef fective 2019-Present) Name:Brenda Lamar Relation to Subscriber:Spouse Name:ARNALDO DIAZ Date of :1977 (Home) Address: [address] [place] [address] Payer ID:[id number] (NAIC) Type:Shut Down Address: [address] [facility] ANTHEM ACCESS CHOICE [facility] ANTHEM ACCESS CHOICE IDIL Care Teams Real Estate Coordinator Relationship Specialty Start Date End Date Katrina Guzman DO PCP - General Family Medicine 11/02/21
--- OUTSIDE RECORDS SUMMARY | 2025-02-11 08:07 | XMS_ITS | Patient Health Record ---
Author Organization [facility] Address [address] [place] [address] Phone [phone] Care Team Providers Care Information Systems Audit Manager Name Role Phone Marimar Lr APRN Primary Care Provider + [phone] Reason For Referral No Information Medications Medication SIG (Take, Route, Frequency, Duration) Notes Start Date End Date Diagnosis (ICD Code) Status Adderall XR 30 MG Capsule Extended Release 24 Hour 1 capsule in the morning Orally Once a day Not-Taking Ibuprofen 600 MG Tablet 1 tablet with food or milk as needed Orally Three times a day; Duration: 14 days 12/30/2019 Pleurisy (ICD_10 - R09.1) Active cloNIDine HCl 0.1 MG Tablet 1 tablet Orally Once a day; Duration: 30 day(s) Active BuSpar 15 MG Tablet 1 tablet Orally Three times a day Active clonazePAM 0.5 MG Tablet 1 tablet Orally three times daily Active Vyvanse 30 MG Capsule 1 capsule in the morning Orally Once a day Active Immunizations Status Vaccine Route Administration Date Visit Date Comments Administered COVID-19 Moderna 2nd IM Intramuscular 06/03/2020 COVID-19 Moderna 1ST IM Intramuscular 05/06/2020 FLU VAC NO PRSV 4VAL 6 mo+ IM Intramuscular 12/03/2019 Consent signed by patient. Patient tolerated well. VIS date 10/03/18 Social History Tobacco Use: Social History Observation Description Date Details (start date - stop date) Former Smoker NA - NA Sex Observation Social History Observation Description Sex Observation Male Sexual Orientation Social History Observation Description Sexual Orientation Lesbian, adame or homo sexual Gender Identity Social History Observation Description Gender Identity Male Social History Miscellaneous Social Info Question Answer Notes Method of learning: Preferred method of learning: Hear ing Primary Social History Social Info Question Answer Notes Living Arrangement Living Arrangement: Independent Christine ing Is this a supportive environment? Yes Employment Status Employment Status: Unemployed Illicit Substance Usage Illicit Substance Usage: No Alcohol Use Alcohol Use Frequency: Monthly or less Drugs/Alcohol: Social Info Question Answer Notes Alcohol Screen (Audit-C) Did you have a drink containing alcohol in the past year? Yes Drugs Have you used drugs other than those for medical reasons in the past 12 months? No Tobacco Use: Social Info Question Answer Notes Dont use, Tobacco Use/Smoking Are you a former smok er How long has it been since you last smoked? 1-5 years Additional Details Category Social Info Options Details Past Medication Use Do you use nicotine other than cig arettes? no Drugs/Alcohol: Do you smoke marijuana? De nies Do you drink alcohol? Denies Problems Problem Type SNOMED Code ICD Code Dates Problem Status W/U Status Risk Notes Problem Vitamin D deficiency (39042208) Vitamin D deficiency (E55.9) Added On:07/15 Active confirmed Problem Degeneration of lumbar intervertebral disc (70859179) Degenerative disc disease, lumbar (M51.36) Added On:07/15 Active confirmed Plan Of Treatment No Information Insurance Providers Payer Name Payer Address Payer Phone Subscriber Number Group Number Insured Name Patient Relationship to Insured Coverage Start Date Coverage End Date [facility] Attn Claims Department [address] [place] [address] [phone] [id number] Chivo Cosby Self - patient is the insured 0 [id number] Attn Claims Department [address] [place] [address] [phone] [id number] Chivo Cosby Self - patient is the insured 1 Medical (General) History Medical History History ICD Code ADHD Anxiety Degenerative disc disease Spinal Stenosis Vitamin D Deficiency Surgical History Surgery Date(Month/Year)
--- OUTSIDE RECORDS SUMMARY | 2025-02-11 08:07 | XMS_ITS | Clinical Summary ---
Author Organization [facility] Address [address] [place] [address] Care Team Providers Care Concrete Spreader Name Role Phone Katrina Guzman DO Primary Care Provider [phone] Source Comments [facility],non-owned Affiliates and Associated Physician Practices is amultiple site organization consisting of ambulatory clinics and hospital sitesin [place], [place] and [place]. This disclosure is being madepursuant to the Care Everywhere program and may not contain all information available regarding this patient. Last updated 17.[facility] Allergies No known active allergies Medications * Be aware that medications may not be up to date on this document. Alwaysverify current medications with the patient. busPIRone (BUSPAR) 10 MG tablet 10 mg [...] (one) tablet by mouth at bedtime Active lisdexamfetamin e (Vyvanse) 40 MG capsule 03/21/2023 Active fish oil/omega-3 fatty acids (Promega;Cardi- Milo 3) 1000 MG capsule Take 1 (one) capsule by mouth 3 times daily with meals Active Turmeric (QC Tumeric Complex) 500 MG Acti ve Chromium 1 MG Active Probiotic Product (PROBIOTIC-10 [...] Years Used Date Smoking Tobacco: Former Cigarettes 0 Q uit: 2006 Smokeless Tobacco: Never Tobacco Cessation:Counseling Given: No Alcohol Use Standard Drinks/Week Comments No 0 (1 standard drink = 0.6 oz pur e alcohol) Sex and Gender Information Value Date Recorded Sex Assigned at Male 06/16/2021 10:05 AM CDT Legal Sex Male 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 Gender Identity Male 06/16/2021 10:05 AM CDT Sexual Orientation Gomez 06/16/2021 10 :05 AM CDT Last Filed Vital Signs Vital Sign Reading Time Taken Comments Blood Pressure 118/80 03/23/2023 8:41 AM [employer] REPAIR TECHNICIAN Pulse 88 03/23/2023 8:41 AM WIND [employer] REPAIR TECHNICIAN Temperature 36.7 C (98 F) 03/23/2023 8:41 AM WIND [employer] BL[employer] REPAIR TECHNICIAN Respiratory Rate 16 03/23/2023 8:41 AM WIND [employer] REPAIR TECHNICIAN Oxygen Saturation 98% 03/23/2023 8:41 AM WIND [employer] BL[employer] REPAIR TECHNICIAN Inhaled Oxygen Concentration - - Weight 111.6 kg (246 lb) 03/23/2023 8:41 AM WIND [employer] REPAIR TECHNICIAN Height 172.7 cm (5' 8) 03/23/2023 8:41 AM W[employer] REPAIR TECHNICIAN Body Mass Index 37.4 03/23/2023 8:41 AM WIND [employer] BL[employer] REPAIR TECHNICIAN Plan of Treatment Health Maintenance Due Date Last Done Comments COLOGUARD (AGES 45-75) - COL ON CA SCREENING 1977 COLON MONITORING 1977 COLONOSCOPY - COLON CA SCREENING 1977 CT COLONOGRAPHY - COLON CA SCREENING 1977 Colorectal Cancer Screening 1977 FIT - COLON CA SCREENING 1977 FLEX SIG - COLON CA SCREENING 1977 HIV SCREENING 1992 HEPATITIS C SCREENING 07/04/1995 DTAP/TDAP/TD VACCINES (1 - Tdap) 1996 HEPATITIS B VACCINE (1 of 3 - 19+ 3-dose series) 1996 SCREENING FOR DIABETES 11/23/2022 DEPRESSION SCREENING 02/20/2024 MEDICARE AWV CALENDAR YEAR 2024 COVID-19 VACCINE (3 - 2024-2 6 season) 2024 06/03/2020, 05/06/2020 INFLUENZA VACCINE (#1) 2024 12/03/2019 ZOSTER VACCINE (1 of 2) 07/09/2027 HIB VACCINE Aged Out No longer eligi ble based on patient's age to complete this topic HPV VACCINE Aged Out No longer eligi ble based on patient's age to complete this topic MENINGOCOCCAL (Group B) VACCINE SHARED DECISION-MAKING Aged Out No longer eligible based on patient's age to complete this topic MENINGOCOCCAL GROUPS A/C/Y/W VACCINE Aged Out No longer eligible b ased on patient's age to complete this topic PNEUMOCOCCAL VACCINE Aged Out No long er eligible based on patient's age to complete this topic Insurance [facility] [address] [employer] MEDICARE ADVANTAGE ANTHEM Care Teams Concrete Spreader Relationship Specialty Start Date End Date Katrina Guzman DO [address] [place] [address] PCP - General Family Medicine 11/23/22
--- OUTSIDE RECORDS SUMMARY | 2025-02-11 08:07 | XMS_ITS | Patient Health Record ---
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 Name Role Phone Katrina CHONG DO Primary Care Provider Veronica Mohamud Unavailable [phone] Courtney Louise Unavailable [phone] Allergies No Known Allergies Results Component Value Reference Range Flag Notes UDT Reviewed date:05/13/2024 08:38:53 AM Interpretation: Performing Lab: Notes/Report: Amphetamine (AMP) POS 0 - 1000 ng/ml Buprenorphine (BUP) NEG 0 - 10 ng/ml Oxazepam (BZO) NEG 0 - 300 ng/ml Cocaine (JOEY) NEG 0 - 300 ng/ml Methamphetamine (mAMP) NEG 0 - 300 ng/ml Methylenedioxymethamphetamin e (MDMA) NEG 0 - 500 ng/ml Morphine (MOP) NEG 0 - 25 ng/ml Methadone (MTD) NEG 0 - 300 ng/ml Oxycodone (OXY) NEG 0 - 300 ng/ml THC NEG 0 - 50 ng/ml x NEG 0 - 1000 ng/ml x NEG 0 - 1000 ng/ml x NEG 0 - 300 ng/ml x NEG 0 - 300 ng/ml x NEG 0 - 300 ng/ml UDT Reviewed date:10/02/2024 02:28:41 PM Interpretation: Performing Lab: Notes/Report: Amphetamine (AMP) P 0 - 1000 ng/ml Buprenorphine (BUP) N 0 - 10 ng/ml Oxazepam (BZO) N 0 - 300 ng/ml Cocaine (JOEY) N 0 - 300 ng/ml Methamphetamine (mAMP) N 0 - 300 ng/ml Methylenedioxymethamphetamin e (MDMA) N 0 - 500 ng/ml Morphine (MOP) N 0 - 25 ng/ml Methadone (MTD) N 0 - 300 ng/ml Oxycodone (OXY) N 0 - 300 ng/ml THC N 0 - 50 ng/ml x N 0 - 1000 ng/ml x N 0 - 1000 ng/ml x N 0 - 300 ng/ml x N 0 - 300 ng/ml Adderall Reviewed date:05/16/2024 09:19:18 AM Interpretation: Performing Lab: Notes/Report: An exception occurred while processing this report and so it has incomplete data. Please contact nodila for assistance. PDF Report [email or web address] [id number] Stimulants Reviewed date:05/16/2024 09:19:37 AM Interpretation: Performing Lab: Notes/Report: Phentermine NEGATIVE 100.0 ng/mL Not Medicate d Consistent Methylphenidate NEGATIVE 50.0 ng/mL Not Medic ated Consistent Methamphetamine NEGATIVE 100.0 ng/mL Not Medi cated Consistent Amphetamine 3813.5 100.0 ng/mL POSITIVE Medicated Consistent Validity Testing Reviewed date:05/16/2024 09:19:29 AM Interpretation: Performing Lab:[address] [place] [address], [address] [place] [address], Director - [id number] Notes/Report: Not Medicated Consistent Not Medicated Consistent Not Medicated Consistent Not Medicated Consistent Specific [place] 1.025 1.003 - 1.030 pH 6.9 3.0 - 10.9 Oxidants -45 200 g/mL Creatinine 93.6 20.0 - 300.0 mg/dL Reason For Referral No Information Medications Medication SIG (Take, Route, Frequency, Duration) Notes Start Date End Date Status busPIRone HCl 15 MG Tablet Oral 07/10/2023 Not-Taking Metoprolol Succinate ER 25 MG Tablet Extended Release 24 Hour Oral 07/10/2023 Not-Taking Celecoxib 200 MG Capsule Oral 07/10/2023 Not-Taking Clotrimazole 1 % Solution External 07/10/2023 Not-Taking busPIRone HCl 5 MG Tablet Oral 07/10/2023 Not-Taking Ezetimibe 10 MG Tablet Oral 07/10/2023 Not-Taking Pravastatin Sodium 10 MG Tablet Oral 07/10/2023 Not-Taking Meloxicam 15 MG Tablet Oral 07/10/2023 Unknown Amphetamine-Dextroamph et ER 30 MG Capsule Extended Release 24 Hour Oral 07/10/2023 Unknown traZODone HCl 100 MG Tablet 1 tablet at bedtime Oral bedtime; Duration: 30 days As needed Active Lyrica 25 MG Capsule Oral 07/10/2023 Not-Taking Lisdexamfetamine Dimesylate 50 MG Capsule 1 capsule in the morning Oral Once a day; Duration: 30 days 04/10/2024 Not-Taking clonazePAM 0.5 MG Tablet 1 tablet Oral twice a day; Duration: 7 days 11/09/2023 Not-Taking Fenofibrate 160 MG Tablet Oral 07/10/2023 Not-Taking Imiquimod 5 % Cream External 07/10/2023 Not-Taking Vyvanse 60 MG Capsule 1 capsule in the morning Oral Once a day; Duration: 30 days PA approved 01/28/25-01/28/26 01/28/2025 Active PITAVASTATIN CALCIUM 1 MG TABLET *Reorder from Gleam for eRx and Interaction Alerts* 07/10/2023 Active Aspirin 81 MG Tablet Delayed Release 1 tablet Orally Once a day Active Fish Oil 1200 MG Capsule 1 capsule Orally four times a day Active Rosuvastatin Calcium 40 MG Tablet Oral 07/10/2023 Not-Taking Immunizations Vaccine Route Administration Date Status Comme nts Moderna Covid-19 Vaccine 1st dose Unknown 05/06/2020 Ad ministered Moderna Covid-19 Vaccine 1st dose Unknown 06/03/2020 Ad ministered Moderna Covid-19 Vaccine 1st dose Unknown 01/18/2021 Ad ministered HPV9 (human papillomavirus), nonavalent Unknown 12/26/2022 Administered Social History Tobacco Use: Social History Observation Description Date Details (start date - stop date) Never Smoker NA - NA Sex Assigned At : Social History Observation Description Sex Assigned At Male Social History Sexual History: Social Info Question Answer Notes Sexual History Had sex in the past 12 months (vaginal, oral, or anal)? Yes with Men only Household: Social Info Question Answer Notes Household Marital status: Number of adults in household: 2 Number of children in household: 7 With whom does the child live? with both parents Any household tobacco use? No Drug/Alcohol: Social Info Question Answer Notes Drugs Have you used drugs other than those for medical reasons in the past 12 months? No AUDIT-C (Standard) Did you have a drink containing alcohol in the past year? Yes How often did you have a drink containing alcohol in the past year? Monthly or less (1 point) How many drinks did you have on a typical day when you were drinking in the past year? 1 or 2 drinks (0 point) How often did you have six or more drinks on one occasion in the past year? Less than monthly (1 point) Points 2 Interpretation Negative Caffeine Intake: 1-2 cups per day Tobacco Use: Social Info Question Answer Notes Tobacco Control (Standard) Tobacco use: Nonsmoker Additional Findings: Tobacco non-user Current no nsmoker Additional Details Category Social Info Options Details Migrated Social History Migrated Social History Alcohol Intake: None 05/17/2021,Tobacco Years: Former smoker 05/27/2020,Smoking Status: 10 03/13/2023 Drug/Alcohol: Do you smoke marijuana? Den ies Do you drink alcohol? Socially Problems Problem Type SNOMED Code ICD Code Onset Dates Problem Status W/U Status Risk Notes Problem Mild recurrent major depression (82393019) Major depressive disorder, recurrent, mild (F33.0) 07/10/19 Active confirmed Problem Generalized anxiety disorder (26058712) Generalized anxiety disorder (F41.1) 07/10/19 Active confirmed Problem Posttraumatic stress disorder (40926838) Post-traumatic stress disorder, chronic (F43.12) 07/10/19 Active confirmed Problem Primary insomnia (7683591) Primary insomnia (F51.01) 07/10/19 Active confirmed Problem Attention deficit hyperactivity disorder (507374603) Attention-deficit hyperactivity disorder, predominantly hyperactive type (F90.1) 07/10/19 Active confirmed Problem Screening for cardiovascular system disease (301304143) Encounter for screening for cardiovascular disorders (Z13.6) Active confirmed Problem Long-term current use of drug therapy (840765556) Other usp (current) drug therapy (Z79.899) 07/10/19 Active confirmed Problem Depression Screening (123524618) Encounter for screening for depression (Z13.31) Active confirmed Vital Signs Heart Rate 75 /min 10/02/2024 Respiratory Rate 16 /min 10/02/2024 Height-cm 172.72 cm 10/02/2024 Blood pressure diastolic 75 mm Hg 10/02/2024 Weight-kg 80.74 kg 10/02/2024 Height 68.00 in 10/02/2024 Blood pressure systolic 115 mm Hg 10/02/2024 Weight 178 lbs 10/02/2024 BMI 27.06 kg/m2 10/02/2024 Encounters Encounter Location Date Provider Diagnosis [place] [id number] [address] 05/13/2024 Veronica Therartem Encounter for screen ing for depression Z13.31 ; Major depressive disorder, recurrent, mild F33.0 ; Generalized anxiety disorder F41.1 ; Primary insomnia F51.01 ; Post-traumatic stress disorder, chronic F43.12 ; Attention-deficit hyperactivity disorder, predominantly hyperactive type F90.1 ; Other project manager (current) drug therapy Z79.899 and Encounter for screening for cardiovascular disorders Z13.6 [place] [id number] [address] 10/02/2024 Veronica Therartem Major depressive disorder, recurrent, mild F33.0 ; Attention-deficit hyperactivity disorder, predominantly hyperactive type F90.1 ; Encounter for screening for depression Z13.31 ; Generalized anxiety disorder F41.1 ; Primary insomnia F51.01 ; Post-traumatic stress disorder, chronic F43.12 ; Other usp (current) drug therapy Z79.899 and Encounter for screening for cardiovascular disorders Z13.6 [facility] [address] [address] 03/14/2024 Veronica Therartem Attention-deficit hyperactivity disorder, predominantly hyperactive type F90.1 [facility] [address] [address] 04/10/2024 Veronica Thery [place] [id number] [address] 05/09/2024 Veronica Thery Attention-deficit hyperactivity disorder, predominantly hyperactive type F90.1 [place] [id number] [address] 05/26/2024 Veronica Therartem Attention-deficit hyperactivity disorder, predominantly hyperactive type F90.1 [place] [id number] [address] 07/07/2024 Veronica Thery Attention-deficit hyperactivity disorder, predominantly hyperactive type F90.1 [facility], [facility] [address] [place] [address] 08/05/2024 Veronica Thery Attention-deficit hyperactivity disorder, predominantly hyperactive type F90.1 [facility], [facility] [address] [place] [address] 09/01/2024 Veronica Thery Attention-deficit hyperactivity disorder, predominantly hyperactive type F90.1 [facility], [facility] [address] [place] [address] 10/28/2024 Veronica Thery Attention-deficit hyperactivity disorder, predominantly hyperactive type F90.1 [facility], [facility] [address] [place] [address] 12/25/2024 Veronica Thery Attention-deficit hyperactivity disorder, predominantly hyperactive type F90.1 [facility], [facility] [address] [place] [address] 08/05/2024 Veronica Thery [facility], [facility] [address] [place] [address] 08/05/2024 Veronica Thery [facility], [facility] [address] [place] [address] 08/05/2024 Veronica Thery [facility], [facility] [address] [place] [address] 10/10/2024 Veronica Thery Primary insomnia F51 .01 [facility], [facility] [address] [place] [address] 12/01/2024 Veronica Thery Attention-deficit hyperactivity disorder, predominantly hyperactive type F90.1 [facility], [facility] [address] [place] [address] 01/14/2025 Courtney Louise Attention-deficit hyperactivity disorder, predominantly hyperactive type F90.1 [facility], [facility] [address] [place] [address] 01/21/2025 Veronica Thery [facility], [facility] [address] [place] [address] 01/21/2025 Veronica Thery [facility], [facility] [address] [place] [address] 01/28/2025 Veronica Correia [facility], [facility] [address] [place] [address] 01/28/2025 Veronica Correia Attention-deficit hyperactivity disorder, predominantly hyperactive type F90.1 Assessments Encounter Date Diagnosis (ICD Code) Assessment Notes Treatment Notes Treatment Clinical Notes Section Notes 05/26/2024 Attention-deficit hyperactivity disorder, predominantly hyperactive type (ICD-10 - F90.1) 07/07/2024 Attention-deficit hyperactivity disorder, predominantly hyperactive type (ICD-10 - F90.1) 08/05/2024 Attention-deficit hyperactivity disorder, predominantly hyperactive type (ICD-10 - F90.1) 09/01/2024 Attention-deficit hyperactivity disorder, predominantly hyperactive type (ICD-10 - F90.1) 10/02/2024 Major depressive disorder, recurrent, mild (ICD-10 - F33.0) Preventing Depression From Coming Back: Care Instructions material was published, Learning About Depression material was published, Learning About How to Get Help During a Mental Health Crisis material was published, Learning About Depression Screening material was published, Seasonal Affective Disorder: Care Instructions material was published Depression- monitor stable Anxiety- stable Insomnia- Trazodone 100 mg bedtime PTSD- Therapy ADHD- Vyvanse 60 mg daily- local pharmacy in [place] no early refills on control substance limit 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 [place] monitor B/P EDUCATED ON STIMULATES limit to decreasing to stopping energy drinks RETIREMENT Medication use- UDS and control substance agreement 05/13/2024 Encounter for screening for depression (ICD-10 - Z13.31) Depression- monitor stable Anxiety- stable Insomnia- Trazodone 100 mg bedtime PTSD- Therapy ADHD- Vyvanse 60 mg daily- no refill needed today local pharmacy in [place] no early refills on control substance limit 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 [place] monitor B/P EDUCATED ON STIMULATES limit to decreasing to stopping energy drinks RETIREMENT Medication use- UDS and control substance agreement 10/02/2024 Attention-deficit hyperactivity disorder, predominantly hyperactive type (ICD-10 - F90.1) Learning About Attention Deficit Hyperactivity Disorder (ADHD) in Adults material was published, Attention Deficit Hyperactivity Disorder (ADHD) in Adults: Care Instructions material was published, Learning About Stimulant Medicines for Attention Deficit Hyperactivity Disorder (ADHD) material was published, Learning About Attention Deficit Hyperactivity Disorder (ADHD) in Adults material was published, Attention Deficit Hyperactivity Disorder (ADHD) in Adults: Care Instructions material was published, Learning About Stimulant Medicines for Attention Deficit Hyperactivity Disorder (ADHD) material was published Depression- monitor stable Anxiety- stable Insomnia- Trazodone 100 mg bedtime PTSD- Therapy ADHD- Vyvanse 60 mg daily- local pharmacy in [place] no early refills on control substance limit 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 [place] monitor B/P EDUCATED ON STIMULATES limit to decreasing to stopping energy drinks RETIREMENT Medication use- UDS and control substance agreement 10/10/2024 Primary insomnia (ICD-10 - F51.01) 10/28/2024 Attention-deficit hyperactivity disorder, predominantly hyperactive type (ICD-10 - F90.1) 12/01/2024 Attention-deficit hyperactivity disorder, predominantly hyperactive type (ICD-10 - F90.1) 12/25/2024 Attention-deficit hyperactivity disorder, predominantly hyperactive type (ICD-10 - F90.1) 01/14/2025 Attention-deficit hyperactivity disorder, predominantly hyperactive type (ICD-10 - F90.1) 01/28/2025 Attention-deficit hyperactivity disorder, predominantly hyperactive type (ICD-10 - F90.1) 03/14/2024 Attention-deficit hyperactivity disorder, predominantly hyperactive type (ICD-10 - F90.1) 05/09/2024 Attention-deficit hyperactivity disorder, predominantly hyperactive type (ICD-10 - F90.1) 05/13/2024 Major depressive disorder, recurrent, mild (ICD-10 - F33.0) Preventing Depression From Coming Back: Care Instructions material was published, Learning About Depression material was published, Learning About How to Get Help During a Mental Health Crisis material was published, Learning About Depression Screening material was published, Seasonal Affective Disorder: Care Instructions material was published Depression- monitor stable Anxiety- stable Insomnia- Trazodone 100 mg bedtime PTSD- Therapy ADHD- Vyvanse 60 mg daily- no refill needed today local pharmacy in [place] no early refills on control substance limit 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 [place] monitor B/P EDUCATED ON STIMULATES limit to decreasing to stopping energy drinks RETIREMENT Medication use- UDS and control substance agreement 10/02/2024 Encounter for screening for depression (ICD-10 - Z13.31) Depression- monitor stable Anxiety- stable Insomnia- Trazodone 100 mg bedtime PTSD- Therapy ADHD- Vyvanse 60 mg daily- local pharmacy in [place] no early refills on control substance limit 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 [place] monitor B/P EDUCATED ON STIMULATES limit to decreasing to stopping energy drinks RETIREMENT Medication use- UDS and control substance agreement 10/02/2024 Generalized anxiety disorder (ICD-10 - F41.1) Generalized Anxiety Disorder: Care Instructions material was published, Learning About Generalized Anxiety Disorder material was published, Learning About Anxiety Disorders material was published, Generalized Anxiety Disorder: Care Instructions material was published, Learning About Generalized Anxiety Disorder material was published, Learning About Anxiety Disorders material was published Depression- monitor stable Anxiety- stable Insomnia- Trazodone 100 mg bedtime PTSD- Therapy ADHD- Vyvanse 60 mg daily- local pharmacy in [place] no early refills on control substance limit 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 [place] monitor B/P EDUCATED ON STIMULATES limit to decreasing to stopping energy drinks RETIREMENT Medication use- UDS and control substance agreement 05/13/2024 Generalized anxiety disorder (ICD-10 - F41.1) Generalized Anxiety Disorder: Care Instructions material was published, Learning About Generalized Anxiety Disorder material was published, Learning About Anxiety Disorders material was published, Generalized Anxiety Disorder: Care Instructions material was published, Learning About Generalized Anxiety Disorder material was published, Learning About Anxiety Disorders material was published Depression- monitor stable Anxiety- stable Insomnia- Trazodone 100 mg bedtime PTSD- Therapy ADHD- Vyvanse 60 mg daily- no refill needed today local pharmacy in [place] no early refills on control substance limit 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 [place] monitor B/P EDUCATED ON STIMULATES limit to decreasing to stopping energy drinks RETIREMENT Medication use- UDS and control substance agreement 05/13/2024 Primary insomnia (ICD-10 - F51.01) Insomnia: Care Instructions material was published, Learning About Sleeping Well material was published, Insomnia: Care Instructions material was published, Learning About Sleeping Well material was published Depression- monitor stable Anxiety- stable Insomnia- Trazodone 100 mg bedtime PTSD- Therapy ADHD- Vyvanse 60 mg daily- no refill needed today local pharmacy in [place] no early refills on control substance limit 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 [place] monitor B/P EDUCATED ON STIMULATES limit to decreasing to stopping energy drinks RETIREMENT Medication use- UDS and control substance agreement 10/02/2024 Primary insomnia (ICD-10 - F51.01) Insomnia: Care Instructions material was published, Learning About Sleeping Well material was published, Insomnia: Care Instructions material was published, Learning About Sleeping Well material was published Depression- monitor stable Anxiety- stable Insomnia- Trazodone 100 mg bedtime PTSD- Therapy ADHD- Vyvanse 60 mg daily- local pharmacy in [place] no early refills on control substance limit 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 [place] monitor B/P EDUCATED ON STIMULATES limit to decreasing to stopping energy drinks RETIREMENT Medication use- UDS and control substance agreement 10/02/2024 Post-traumatic stress disorder, chronic (ICD-10 - F43.12) Post-Traumatic Stress Disorder (PTSD): Care Instructions material was published, Post-Traumatic Stress Disorder (PTSD): Care Instructions material was published Depression- monitor stable Anxiety- stable Insomnia- Trazodone 100 mg bedtime PTSD- Therapy ADHD- Vyvanse 60 mg daily- local pharmacy in [place] no early refills on control substance limit 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 [place] monitor B/P EDUCATED ON STIMULATES limit to decreasing to stopping energy drinks PROP DRAWER Medication use- UDS and control substance agreement 05/13/2024 Post-traumatic stress disorder, chronic (ICD-10 - F43.12) Post-Traumatic Stress Disorder (PTSD): Care Instructions material was published, Post-Traumatic Stress Disorder (PTSD): Care Instructions material was published Depression- monitor stable Anxiety- stable Insomnia- Trazodone 100 mg bedtime PTSD- Therapy ADHD- Vyvanse 60 mg daily- no refill needed today local pharmacy in [place] no early refills on control substance limit 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 [place] monitor B/P EDUCATED ON STIMULATES limit to decreasing to stopping energy drinks RETIREMENT Medication use- UDS and control substance agreement 05/13/2024 Attention-deficit hyperactivity disorder, predominantly hyperactive type (ICD-10 - F90.1) Learning About Attention Deficit Hyperactivity Disorder (ADHD) in Adults material was published, Attention Deficit Hyperactivity Disorder (ADHD) in Adults: Care Instructions material was published, Learning About Stimulant Medicines for Attention Deficit Hyperactivity Disorder (ADHD) material was published, Learning About Attention Deficit Hyperactivity Disorder (ADHD) in Adults material was published, Attention Deficit Hyperactivity Disorder (ADHD) in Adults: Care Instructions material was published, Learning About Stimulant Medicines for Attention Deficit Hyperactivity Disorder (ADHD) material was published Depression- monitor stable Anxiety- stable Insomnia- Trazodone 100 mg bedtime PTSD- Therapy ADHD- Vyvanse 60 mg daily- no refill needed today local pharmacy in [place] no early refills on control substance limit 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 [place] monitor B/P EDUCATED ON STIMULATES limit to decreasing to stopping energy drinks PROP DRAWER Medication use- UDS and control substance agreement 10/02/2024 Other usp (current) drug therapy (ICD-10 - Z79.899) Medication Refill: Care Instructions material was published, Medication Refill: Care Instructions material was published Depression- monitor stable Anxiety- stable Insomnia- Trazodone 100 mg bedtime PTSD- Therapy ADHD- Vyvanse 60 mg daily- local pharmacy in [place] no early refills on control substance limit 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 [place] monitor B/P EDUCATED ON STIMULATES limit to decreasing to stopping energy drinks RETIREMENT Medication use- UDS and control substance agreement 10/02/2024 Encounter for screening for cardiovascular disorders (ICD-10 - Z13.6) Depression- monitor stable Anxiety- stable Insomnia- Trazodone 100 mg bedtime PTSD- Therapy ADHD- Vyvanse 60 mg daily- local pharmacy in [place] no early refills on control substance limit 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 [place] monitor B/P EDUCATED ON STIMULATES limit to decreasing to stopping energy drinks PROP DRAWER Medication use- UDS and control substance agreement 05/13/2024 Other project manager (current) drug therapy (ICD-10 - Z79.899) Medication Refill: Care Instructions material was published, Medication Refill: Care Instructions material was published Depression- monitor stable Anxiety- stable Insomnia- Trazodone 100 mg bedtime PTSD- Therapy ADHD- Vyvanse 60 mg daily- no refill needed today local pharmacy in [place] no early refills on control substance limit 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 [place] monitor B/P EDUCATED ON STIMULATES limit to decreasing to stopping energy drinks PROP DRAWER Medication use- UDS and control substance agreement 05/13/2024 Encounter for screening for cardiovascular disorders (ICD-10 - Z13.6) Depression- monitor stable Anxiety- stable Insomnia- Trazodone 100 mg bedtime PTSD- Therapy ADHD- Vyvanse 60 mg daily- no refill needed today local pharmacy in [place] no early refills on control substance limit 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 [place] monitor B/P EDUCATED ON STIMULATES limit to decreasing to stopping energy drinks PROP DRAWER Medication use- UDS and control substance agreement Plan Of Treatment Next Appt Details Provider Name:Yahaira Martínez, 02/25/2025 03:15:00 PM, [address], [address], [place], [address], Insurance Providers Payer Name Payer Address Payer Phone Subscriber Number Group Number Insured Name Patient Relationship to Insured Coverage Start Date Coverage End Date [facility] [address] [place] [address] [id number] ARNALDO ANDRE ND Spouse - patient is the spouse of the insured Medicaid-I l Medicaid [address] [address] [place] [address] [id number] BRENDA LAMAR Self - patient is the insured Medical (General) History Medical History History ICD Code Problems: Adult attention deficit hypera ctivity disorder Attention deficit hyperactivity disorder Chronic post-traumatic stress disorder Generalized anxiety disorder Long-term current use of drug therapy Mild recurrent major depression Normal grief reaction Primary insomnia Recurrent major depressive episodes, mod erate , Surgical History Surgery Date(Month/Year) Other Sinus surgery
[2025-02-12 06:07] LABS: FSH 9.0 mIU/mL (1.5-12.4)
[2025-02-12 07:08] LABS: LH 3.1 mIU/mL (1.7-8.6)
[2025-02-13 13:08] LABS: ANA by IFA Rfx Titer/Pattern Negative (.)
[2025-02-13 14:08] LABS: Free Testosterone (Direct) 6.4 pg/mL (6.8-21.5)
== END 2025-02-11 08:03 | disposition home or self-care (01) ==
PROVIDERS: PCP Family Medicine; Visit Provider Family Medicine
DX: R53.83 Other fatigue (principal); R79.89 Other specified abnormal findings of blood chemistry; M62.81 Muscle weakness (generalized)
CPT/HCPCS: 83001; 83002; 84402; 84403; 86038